=== PATIENT | female | born 1970 | race Caucasian/White ===

== ENCOUNTER 2018-08-30 05:25 | Inpatient (IN) | payer OTHER, SELFPAY ==
--- NOTE | 2018-08-17 22:09 | PCM.HP.BLA ---
History and Physical History and Physical Patient Name: Mamie Birch : 1970 From: SILVANO RAO PA-C DATE OF SURGERY: 08/30/2018 SCHEDULED PROCEDURE: Left Total Hip Arthroplasty HISTORY OF PRESENT ILLNESS: On August 17, 2018. This is a 47-year-old female who has been having ongoing pain over the past several years with regards to her left hip. Recently patient states the left hip pain has progressively become worse. It is to the point where she has difficult time with activities of daily living including getting dressed. She has a hard time and difficulty tying her shoes. Patient has increased pain going up and down stairs, sitting, and walking. Pain is been aching, sharp, sore. Pain can reach a size a 7-8/10. Patient has tried home health care social worker in the past with traction exercises and home exercises. These did not provide any significant relief. Patient states she has tripped/stumbled secondary to her left hip pain. This has prevented her from intamacy with her partner. Patient has tried nonsteroidal anti-inflammatories and Tylenol with only minimal relief. She has had to use a cane on vacation now due to her hip pain. Patient had the stop a walking program in which she was walking 3 miles with a friend several days a week. The pain as significantly increased and prevented this. She has tried rest, heat, elevation with no relief in symptoms. Patient has had previous low back pain in 2010 with previous injections in 2010. She currently is not complaining of any significant back pain. Denies any numbness and tingling down her leg. We have obtain surgical clearance from patient's primary care physician Dr. Tena. Patient has medical history pertinent for thyroid disease and depression. Patient also has hoarseness and occasional shortness of breath secondary to paralyzed vocal chord. Denies any recent chest pain, fevers chills, recent infections. Patient at this time wishes to proceed with a left total hip arthroplasty after discussing treatment options with Dr. Jose Manuel De La Cruz. REVIEW OF SYSTEMS: ROS: Const: Denies anorexia, change in appetite, fever, difficulty sleeping, weight change. CV: Denies chest pain, heart murmur, irregular heartbeat and peripheral vascular disease. Resp: Denies asthma, cough, pneumonia, sleep apnea, shortness of breath, tuberculosis and wheezing SHORTNESS OF BREATH DUE TO PARALYZED VOCAL CHORD GI: Denies constipation, diarrhea, heartburn, nausea, rectal itching, bloody stools and vomiting. : Denies incontinence. Musculo: Reports leg swelling, pain and weakness, but denies trouble walking. Skin: Reports history of shingles and tattoo, but denies Raynaud's. Neuro: Denies ambulatory dysfunction, dizziness, numbness/tingling and tremor. Psych: Denies anxiety, depression, insomnia, mental illness and stress. Rogelio/Lymph: Denies anemia, bleeding/bruising tendency and past transfusion. Reviewed, no changes. PAST MEDICAL HISTORY: Advance Care Plan: No Advance Directives Effective Date: 07/27/2018 PMH: Medical Problems: Thyroid Disease, Depression Accidents: None Surgical Hx: Tonsillectomy Foot Surgery - PLANTARFACITIS - BILAT Thyroidectomy - LT Anesthesia Complications: None Assistive Devices: Glasses - READING Reviewed and updated. 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 Personal Habits: Smoking: Patient is a former smoker.Cigarette Use: Former.Smokeless Tobacco: Never Used Smokeless Tobacco.E-Cigarette Use: Never used.Alcohol: Occasionally.Drug Use: Denies Use.Enjoy Exercising: Never Exercises. Reviewed and updated. VITALS: Ht: 70 Wt: 277lb Wt k.647 BMI: 39.7 BP: 116/74 Pulse: 79 Resp: 24 T: 98.1 T: 36.7C ALLERGIES: Penicillin Spider Bites Bee Sting MEDICATIONS: Vitamin D3 1000 Unit 1 po qdAY, Levothyroxine 10MG 1 PO daily, Wellbutrin XL 300 mg 1 PO daily, Prozac 40 mg 1 cap PO daily, CBD Oil uad PRE-OP EXAM: General appearance:NORMAL Other: Eyes: Conjunctivae and lids: NORMAL Pupils: ERR Ears, Nose, Mouth, and Throat: NORMAL Other: Inspection of lips, teeth and gums: NORMAL Other: Neck: Examination of neck: no masses noted. Respiratory: Assessment of respiratory effort: NORMAL Other: Auscultation of lungs: clear to auscultation no wheezes, rhonchi or rales. Cardiovascular: Auscultation of heart: regular rate and rhythm, no murmurs, gallops or rubs. Gastrointestinal: Exam of abdomen: soft, nontender, nondistended bowel sounds present. PHYSICAL EXAMINATION: Patient does walk with an antalgic gait. Patient is complaining of left groin pain. She has minimal pain over the lateral left hip. Patient is able to forward flex with fingertips to mid lower legs. Range of motion left hip: Limited with increased pain on internal and external rotation. Hip flexion 100 with increased pain. Internal rotation 5 and external rotation 15. Positive crepitus. Sensation intact to light touch. Neurovascularly intact. 2 mm leg length discrepancy with left being shorter than right. IMAGING STUDIES: X-ray were obtained at today's visit of the left hip including 3 views AP pelvis, AP left hip, crossfire lateral left hip reveals severe osteoarthritis of the left hip with complete joint space loss, subchondral sclerosis, osteophyte formation and subchondral cyst formation. No acute findings for fracture or dislocation. IMPRESSION: 1. Severe left hip osteoarthritis 2. History of low back pain 3. Thyroid disease 4. Depression PLAN: Dr. Jose Manuel De La Cruz did discuss and review with the patient all treatment options including surgical versus nonsurgical options. Patient does wish to proceed with the above-stated procedure. Potential risks, benefits, and complications of the procedure were discussed in detail including but not limited to , infection, nerve and blood vessel damage, persistent pain, numbness, tingling, paresthesias, blood clot, pulmonary embolism, and requirement for possible further surgery. The patient expressed full understanding and has no further questions for the doctor. Patient does agree to proceed with the above-stated procedure and has signed the surgery consent form. This dictation was created using voice recognition software. Phonetic and/or grammatical errors may exist.. ___ I have re-examined the patient. There are no clinical changes since date of exam. ___ See progress notes for changes. ___ Dictated on admission Date: Time: Signature:
[2018-08-21 11:34] VITALS: BP 126/75; PULSE 65; RESP 16; TEMP 36.4; O2SAT 97; BMI 38.7
--- NOTE | 2018-08-24 14:27 | CASEMGMT ---
Call placed to patient to discuss discharge needs after upcoming surgery. Patient plans to return home with assistance from , mom, and 3 children. Patient has initial outpatient physical therapy appointment set up and will have transportation assistance. Patient has a walker, shower seat, toilet riser, and grab bars in the bathroom. There is a bedroom and bathroom on the 1st level of the home; there are approx. 5 steps to enter home. Informed patient that RN-CM will likely follow up after surgery to discuss any further discharge needs. Lanie Quintana LPN Clinical Support
[2018-08-30] VITALS (12 sets, daily range): BP systolic 101–120; BP diastolic 54–76; PULSE 65–85; RESP 14–18; TEMP 36.2–36.7; O2SAT 95–100; BMI 38.7
[2018-08-30] MEDS: Acetaminophen 500 MG Tablet 1000 MG PO ×3 (06:06→21:17)
[2018-08-30 06:07] LABS: Internal QC Validated? YES +Cl - CLEAR BKGD
[2018-08-30] MEDS: Celecoxib 200 MG Capsule 400 MG PO (06:07)
[2018-08-30 06:08] LABS: Pregnancy, Urine Negative Negative
[2018-08-30] MEDS: Gabapentin 600 MG Tablet PO (06:08)
[2018-08-30] MEDS: Scopolamine 1mg/72hr Patch 1 PATCH TRANSDERM. (06:09)
[2018-08-30] MEDS: Magnesium Sulfate 4gm/100mL 4 GM/100 ML IV.SOLN. IV (06:10)
--- NOTE | 2018-08-30 07:40 | RAD_ITS ---
STUDY: X-RAY - PELVIS AND LEFT HIP REASON FOR EXAM: Female, 47 years old. Left hip replacement surgery TECHNIQUE: 3 intraoperative views of the pelvis and hip. COMPARISON: None. FINDINGS: 3 limited intraoperative films were performed as the patient has undergone total replacement of the left hip joint. Components demonstrate anatomic alignment. No plain film evidence of complication. RAD/Hip 1 view with Pelvis IMPRESSION: Intraoperative views of a replaced left hip show anatomic alignment. Electronically Signed: Juan Pablo Marie MD at 9:33 EDT , Service support ,
[2018-08-30 07:55] LABS: Bedside Glucose 89 mg/dL (70-110)
--- NOTE | 2018-08-30 08:55 | PCM.OPRPT ---
Report of Operation Date of Procedure: 08/30/18 Pre-Operative Diagnosis: Left hip primary osteoarthritis Post-Operative Diagnosis: Left hip primary osteoarthritis Surgery/Procedure Performed:: Left direct anterior total hip replacement Description of Surgical Findings:: Stable hip with equal leg lengths radiographically military administrative technician: Mojgan Veloz Type of Anesthesia:: Spinal Anesthesiologist: Humble Harvey Special Medications: 900 mg clindamycin, 1 g TXA at incision, 1 g TXA closure, 10 mg Decadron, joint cocktail (5 mg Duramorph, 30 mL of 0.5% Ropivicaine, 1000 units of epinephrine, 30 mg of Toradol) Specimen's removed: Bony cuts Estimated Blood Loss (mL): 150 Fluids Replaced: 1000 mL crystalloid Description of Procedure: Components used: 1. Accolade 2 Gino femoral stem size 5 127? 2. Gino trident 2 acetabular shell size 52 mm 3. Gino X3 polyethylene E 4. Gino Biolox delta 36mm, +7.5mm femoral head Brief history operative indications: 47 yo f who failed conservative measures for their hip osteoarthritis. X-rays were consistent with osteoarthritis including joint space narrowing, osteophyte formation and subchondral cysts. Total hip replacement was discussed with the patient with risks and benefits including but not limited to blood loss, DVTs, PEs, neurovascular damage, dislocation, general risks of anesthesia including loss of life. Patient demonstrated an understanding medical clearance is obtained the patient was consented for surgery. Procedure: On the date of procedure the patient's L hip was marked in the preoperative area. Patient was then taken back to the operating room where anesthesia assumed control of the C-spine and airway and administered anesthetic. Patient was transferred to the operating table and placed in the supine position. The hips were placed at the break of the bed and a sacral bump was placed. The L lower extremity was then prepped out in a sterile fashion using chlorhexidine while the surgeon scrubbed. The PA was vital in the positioning of the patient. Upon reentering the room the L lower extremity was draped in the standard orthopedic fashion and the incision was marked. A timeout was called and everyone agreed upon the side, the site, the procedure be performed, antibody given, and patient's identity. At this time incision was made through skin, subcutaneous tissue, and fat down to fascia. The fascia was then incised and the TFL was retracted laterally. A retractor was placed on the lateral border of the femoral neck. Attention was directed to the inferior portion of the approach and all crossing vessels were identified and appropriately coagulated. A retractor was then placed on the medial portion of the femoral neck. The anterior capsule was then cleared of all soft tissue and then H shaped capsulotomy was made. The retractors were then placed inside the capsule. The femoral neck was identified and a cleanup cut was made. At this time a power corkscrew was used to remove the femoral head. Attention was then turned toward the acetabulum where the soft tissues were appropriately retracted and the acetabulum was sequentially reamed to 52 mm. A 52 mm cup was then selected and impacted into place. Acetabular liner was impacted into place and locking mechanism was verified. The position of the acetabular cup was then verified under live fluoroscopy. Attention was then turned to the femur. Soft tissue releases on the medial and lateral femoral neck were appropriately done, the leg was externally rotated and lateralized. A Carlos retractor was placed medially and proximally to the greater trochanter this allowed appropriate visualization and exposure of the femoral canal. Rongeour was then used to remove excess lateral bone. A canal finder and entry broach were used to open the proximal canal. Once we verified we were down the femoral canal we subsequently broached up to a size 5 femur. The appropriate neck was placed in the previously selected head was trialed with a +7.5 mm neck. Traction was pulled and the hip was reduced with internal rotation. Once it was appropriately reduced and stability was checked. There was minimal shuck, equal leg lengths and appropriate stability with hyperextension and external rotation as well as with 90? flexion and internal rotation. Fluoroscopy was then also used to verify the position of the components and leg lengths using the contralateral side for comparison. The trial components were then dislocated the proximal femur was again exposed and the components were removed from the wound. The final components were verified and opened. The wound was copiously irrigated out with normal saline. The acetabulum was checked for any residual debris. The final components were placed and impacted. Traction and internal rotation were again used to reduce the hip. After adequate reduction the hip remained stable with appropriate leg lengths. The final components were once again checked with live fluoroscopy and were found to be satisfactory. The wound was then copiously irrigated with normal saline once more, and hemostasis was obtained. Closure was then done using #1 Vicryl runner to close the fascia. A 2-0 vicryl interuppted sutures were used to close the subcutaneous skin. A 3-0 Monocryl and Steri-Strips were used for final skin closure. A Silverlon dressing was placed. Patient was awakened by anesthesia and transferred to the [facility]. Patient was then transferred to the PACU for recovery. Postoperative plan: Patient will get 24 hours postop antibiotics. Patient will get in-house physical therapy and will be weight-bear as tolerated. Patient will follow up in office in 2 weeks for a wound check and x-rays. Grafts/Implants Used: Gino - Complications No intraoperative complications - Admit VTE Documentation VTE Present on Admission: No VTE Mechan Device Prophylaxis: SCD's, Thigh High JOON Hose VTE Pharm Prophylaxis ordered?: Yes
--- NOTE | 2018-08-30 09:40 | RAD_ITS ---
STUDY: X-RAY - PELVIS AND LEFT HIP REASON FOR EXAM: Female, 47 years old. Postop from hip replacement surgery TECHNIQUE: 2 views of the pelvis and hip. COMPARISON: None. FINDINGS: Patient is postop from left hip replacement surgery. Components demonstrate anatomic alignment. No plain film evidence of postoperative complication. Normal postoperative soft tissue swelling and subcutaneous emphysema. RAD/Hip Min 2 Views (Portable) IMPRESSION: Replaced left hip joint demonstrates anatomic alignment. No plain film evidence of postoperative complication Electronically Signed: Juan Pablo Marie MD at 10:40 EDT , Service support ,
[2018-08-30] MEDS: Lactated Ringers 1,000 ML 999 ML IV (09:45)
[2018-08-30] MEDS: Lactated Ringers 1,000 ML 125 ML IV ×2 (10:36→17:13)
[2018-08-30] MEDS: FLUoxetine 20 MG Capsule 40 MG PO (15:39)
[2018-08-30] MEDS: buPROPion (XL) 300 MG TABLET.XL PO (15:39)
[2018-08-30] MEDS: Famotidine 20 MG Tablet PO (15:40)
--- NOTE | 2018-08-30 15:45 | CASEMGMT ---
RN MARRY NOTE: To room to talk with pt. @ bedside. Introduced self and role of RN MARRY. Demographics, insurance, physician, and pharmacy all verified. PCP is Dr Tena. Pt also sees Dr De La Cruz, Dr Montague for thyroid, and Dr Macias (bumper machine operator) Preferred harmacy is [facility] in [place]. Pt has [employer] insurance and has prescription coverage. Discussed AD with pt. Pt states does not have LW or HCPOA, but is interested in talking with SW to complete paperwork. ISIDRO Lincoln, notified. Pt states was independent with ADL's and home mgmt tasks prior to surgery. She states she has a good support system @ home: , 3 children, and her mother all can help as needed. Discharge plan: Pt wishes to return home w/OP therapy @ [facility]. She states she has 1st appt scheduled already and has transportation. Pt voices no concerns with discharge. Pt and made aware if they should have any questions or concerns re: discharge planning, to ask for CM. Alexander MOFFETT RN, CM
[2018-08-30] MEDS: Ensure Surgery 237 ML LIQUID PO (17:13)
[2018-08-30] MEDS: Aspirin 81 MG TAB.CHEW PO (17:14)
[2018-08-30] MEDS: Ketorolac 15 MG/ML Vial IV (17:56)
[2018-08-30] MEDS: 0.9% NaCl Peripheral Flush Adult/Peds IV (17:57)
[2018-08-30] MEDS: oxyCODONE 5 MG Tablet 2.5 MG PO (21:15)
[2018-08-30] MEDS: Senna/Docusate Sodium 1 Tablet 2 TABLET PO (21:17)
[2018-08-31 02:24] VITALS: BP 115/88; PULSE 88; RESP 18; TEMP 37.7; O2SAT 94
[2018-08-31] MEDS: oxyCODONE 5 MG Tablet 2.5 MG PO ×2 (02:39→08:02)
[2018-08-31 05:27] LABS: Hematocrit 34.8 % (37-47); Hemoglobin 11.7 g/dL (12.0-15.0); Mean Corp Hgb Conc 33.6 g/dL (32-36); Mean Corpuscular Hgb 29.6 pg (27.0-32.0); Mean Corpuscular Volume 88.1 fL (81-99); Mean Platelet Vol. 10.8 fl (6.2-12.0); Platelet Count 233 K/mm3 (150-450); RBC Distribution Width CV 13.2 % (11.6-14.6); RBC Distribution Width SD 42.8 fl (35.1-43.9); Red Blood Count 3.95 M/mm3 (4.2-5.4); White Blood Count 9.6 K/mm3 (4.4-11.0)
[2018-08-31] MEDS: Acetaminophen 500 MG Tablet 1000 MG PO ×2 (05:30→13:22)
[2018-08-31] MEDS: Levothyroxine 100 MCG Tablet PO (05:30)
[2018-08-31 05:55] LABS: Anion Gap 7 (5-15); BUN 11 mg/dL (7-18); BUN/Creat Ratio 12.9 RATIO (10-20); Calcium,Total 8.4 mg/dL (8.5-10.1); Chloride 106 mmol/L (98-107); Creatinine, Serum 0.85 mg/dL (0.55-1.02); EST Glomerular Filtration Rate 76 mL/min (>60); Est Glom Filt Rate - Afr Amer 91 mL/min (>60); Estimated Creatinine Clearance 90.47 ml/min; Glucose 129 mg/dL (74-106); Potassium 4.4 mmol/L (3.5-5.1); Sodium Level 142 mmol/L (136-145)
[2018-08-31] MEDS: Ketorolac 15 MG/ML Vial IV (08:02)
[2018-08-31] MEDS: Senna/Docusate Sodium 1 Tablet 2 TABLET PO (08:02)
[2018-08-31] MEDS: Famotidine 20 MG Tablet PO (08:03)
[2018-08-31] MEDS: FLUoxetine 20 MG Capsule 40 MG PO (08:03)
[2018-08-31] MEDS: Aspirin 81 MG TAB.CHEW PO (08:03)
[2018-08-31] MEDS: buPROPion (XL) 300 MG TABLET.XL PO (08:03)
[2018-08-31] MEDS: Meloxicam 7.5 MG Tablet PO (08:03)
[2018-08-31 08:34] VITALS: BP 109/62; PULSE 88; RESP 18; TEMP 37.2; O2SAT 98
--- NOTE | 2018-08-31 09:59 | PCM.PN.ORT ---
Subjective: The patient was sitting in bedside chair upon examination. Patient denies any chest pain, shortness of breath, dizziness, lightheadedness, nausea or vomiting, or calf pain. Patient does not feel her pain is been controlled on current plan. She is only taking 2.5 mg of oxycodone every 4 hours. She is tolerating physical therapy. She is having pain at rest and with therapy. Objective: Vital signs stable and afebrile. Patient is able to plantarflex and dorsiflex actively. Sensation is intact to light touch to saphenous, sural, superficial and deep peroneal, and tibial distribution. Dressing is clean dry and intact. Negative Homans bilaterally, negative signs and symptoms of DVT. - Physical Exam General: Alert, Oriented x3, Cooperative, No apparent distress Vital Signs Temp Pulse Resp BP Pulse Ox 99.0 F 88 18 109/62 98 08/31/18 08:34 08/31/18 08:34 08/31/18 08:34 08/31/18 08:34 08/31/18 08:34 Oxygen Flow Rate (L/min) 6 Oxygen Delivery Method Room Air Weight: 125.8 kg Body Mass Index (BMI) 38.7 Finger Stick Blood Glucose 89 Intake and Output for Last 24 Hours 08/29/18 08/30/18 08/31/18 23:59 23:59 23:59 Intake Total 1900 / 1900 3466 / 3466 Output Total 1850 / 1850 Balance 1900 / 1900 1616 / 1616 Laboratory Tests Past 24 Hrs 08/31/18 08/31/18 05:04 05:04 WBC 9.6 RBC 3.95 L Hgb 11.7 L Hct 34.8 L MCV 88.1 MCH 29.6 MCHC 33.6 RDW Std Deviation 42.8 RDW Coeff of Janna 13.2 Plt Count 233 MPV 10.8 Sodium 142 Potassium 4.4 Chloride 106 Carbon Dioxide 29.0 Anion Gap 7 BUN 11 Creatinine 0.85 Estim Creat Clear Calc 90.47 Est GFR (MDRD) Af Amer 91 Est GFR (MDRD) Non-Af 76 BUN/Creatinine Ratio 12.9 Glucose 129 H Calcium 8.4 L Medical Necessity - Tobacco Use Smoking Status: Former smoker Tobacco Use: Non-smoker Assessment/Plan 1. S/P left total hip arthroplasty direct anterior approach POD #1 2. Continue Pain Medications: Tylenol and OxyIR, oxycodone has been changed to 5-10 milligrams every 4 hours as needed pain 3. DVT Prophylaxis: Aspirin 81 mg twice daily for DVT prophylaxis 4. PT/OT: Weightbearing as tolerated 5. H & H: 11.7/34.8, asymptomatic 6. Encouraged Incentive Spirometry 7. Disposition: Plan will be for possible discharge home today. Pain medication has been adjusted. I would like to see how patient does with therapy this afternoon with regards to her pain. If she is tolerating the pain she will be discharged home today. Prescriptions will be attached to chart. Patient will follow-up per postop instructions.
--- NOTE | 2018-08-31 10:06 | DCINST_ITS ---
Discharge Activity: May Not Drive - while taking narcotic pain medications. May shower in (days): 1 - Turn dressing away from water Ice area for (Minutes): 20 - Every 1-2 hours while awake Weight Bearing Status: Weight bearing as tolerated Elevate: Operative Extremity Additional Activity Instructions:: Wear elastic stockings for 2 weeks. DO NOT use alcohol with narcotic pain medication. DO NOT make important decisions while taking narcotic medication. If you have problems with taking your medication (rash, itching, nausea, etc.) call the office at once. Call your doctor if your incision/area has: Increased Pain/ Swelling, Increased Redness, Foul Smelling Discharge Call your doctor if you observe: Fever of 101 or Higher Remove Dressing in (days):: 3 Additional Instructions: Follow [facility] postop instructions Allergies/Adverse Reactions: Allergies Penicillins Allergy (Verified 08/21/18 11:10) Hives Medications to take at Discharge Bupropion HCl [Wellbutrin Xl] 300 mg PO DAILY 08/21/18 Cbd Oil 3,020 mg SL BID 08/21/18 Cholecalciferol (VIT D3) [Vitamin D3] 1,000 unit PO DAILY 08/21/18 Fluoxetine HCl [Prozac] 40 mg PO DAILY 08/21/18 Levothyroxine [Synthroid] 100 mcg PO DAILY 08/21/18 Acetaminophen [Tylenol] 1,000 mg PO Q8 #100 tab 08/31/18 Aspirin [Aspirin, Baby] 81 mg PO BIDCM #60 tab.chew 08/31/18 Famotidine [Pepcid] 20 mg PO DAILY #30 tab 08/31/18 Meloxicam [Mobic] 7.5 mg PO BID #60 tab 08/31/18 Oxycodone [Oxyir] 5 - 10 mg PO Q4H PRN PRN 5 Days #45 tablet 08/31/18 Senna/Docusate Sodium [Senokot-S] 2 tab PO BID #20 tab 08/31/18 The following prescriptions were given: Aspirin [Aspirin, Baby] 81 mg PO BIDCM #60 tab.chew Transmission Status: [id number] Meloxicam [Mobic] 7.5 mg PO BID #60 tab Transmission Status: P[id number] Oxycodone [Oxyir] 5 - 10 mg PO Q4H PRN PRN 5 Days #45 tablet PRN Reason: Mod-Severe Pain (4-11/16) Transmission Status: Received by [id number] Famotidine [Pepcid] 20 mg PO DAILY #30 tab Transmission Status: Pending to [id number] Senna/Docusate Sodium [Senokot-S] 2 tab PO BID #20 tab Transmission Status: Pending to [id number] Acetaminophen [Tylenol] 1,000 mg PO Q8 #100 tab Transmission Status: P[id number] Primary Care Physician: Héctor Tena MD [Primary Care Provider] - Test Results: Test results from this visit will be discussed in further detail at your follow- up appointment, if applicable. Please Follow Up With: Estefania Stanton physical Therapy When: 09/04/18 @ 8:00 with travis Please Follow Up With: Fermín Frye PA-C When: 09/13/18 @ 9:30 am
[2018-08-31] MEDS: oxyCODONE 5 MG Tablet PO (13:22)
[2018-08-31 13:23] VITALS: BP 115/68; PULSE 91; RESP 18; TEMP 36.7; O2SAT 98
--- NOTE | 2018-08-31 13:35 | PCA ---
pt in therapy
== END 2018-08-31 14:38 | disposition home or self-care (01) | DRG 470 ==
LOC: ACINP 05:25 → MS3 05:53
PROVIDERS: Anesthesiology; Admitting Provider Specialist; Family Provider Family Medicine; PCP Family Medicine; Referring Provider Specialist; Visit Provider Specialist
PROC: 0SRB0JA Replacement of Left Hip Joint with Synthetic Substitute, Uncemented, Open Approach (ICD-10-PCS; CPT 27284; principal; 2018-08-30 06:50)
DX: M16.12 Unilateral primary osteoarthritis, left hip (principal); F32.9 Major depressive disorder, single episode, unspecified; E07.9 Disorder of thyroid, unspecified
CPT/HCPCS: 36415; 73501; 73502; 76000; 80048; 81025; 82962; 85027; 87081; 97110; 97116; 97162; 97166; 97530; 99251; C1776; J7120; A4216; G0463

== ENCOUNTER → 2020-04-25 14:19 | Outpatient (CLI) | payer OTHER, SELFPAY ==
[2018-08-30 17:19] VITALS: BMI 38.7
[2020-04-30 16:49] LABS: HPV APTIMA, High Risk Negative (Negative)
== END ==
PROVIDERS: PCP Family Medicine; Visit Provider Obstetrics & Gynecology
DX: Z12.4 Encounter for screening for malignant neoplasm of cervix (principal)
CPT/HCPCS: 87624; 88175; G0145

== ENCOUNTER → 2020-09-09 13:29 | Outpatient (CLI) | payer OTHER, SELFPAY ==
[2018-08-30 17:19] VITALS: BMI 38.7
--- NOTE | 2020-09-09 | ASPS_PTH ---
PATIENT: MARY BARNETT [facility] U#:[id number] AGE/SX: 54/F ROOM: RE09/09/[address]: Dr. Edin Montague MD : 1970 BED: DIS: SPEC #: [id number] RECD: 09/09/20 11:54 STATUS: FRANCI CUENCABarber #: [id number] DIANA: 09/09/20 00:[address]: Edin Montague DEPT: CYTOLOGY RECD BY: Sruthi Aparicio ENTERED: 09/09/20 13:40 SP TYPE: ASPIRATION OTHR DR: Dr. Héctor Tena MD Tissues: A - Thyroid gland, NOS B - Thyroid gland, NOS Procedures: Special Stain Group II Cytology Other HEADER OPERATION: Ultrasound-guided fine needle aspiration right thyroid x2 PRE-OP DIAGNOSIS: Thyroid nodules TISSUE SUBMITTED: A ? FNA, right thyroid superior slides x12, B ? FNA right thyroid inferior slides x12 DIAGNOSIS CYTOLOGY A. Right thyroid, superior nodule, ultrasound-guided FNA (smears): Consistent with benign follicular/colloid nodule. Adequate for evaluation. See comment. B. Right thyroid, inferior nodule, ultrasound-guided FNA (smears): Consistent with benign follicular/colloid nodule. Adequate for evaluation. See comment. SJ:ezekiel 09/10/2020 COMMENT A. The smears are cellular. The findings may represent adenomatoid nodule. A & B. Correlation with clinical, radiologic findings and appropriate follow up are necessary. Please make reference to previous specimen ([id number]) right thyroid, ultrasound-guided FNA with diagnosis of ?benign follicular nodule, favor colloid nodule with cystic changes.? CYTOLOGY STUDY Slides are reviewed. CYTOLOGY GROSS A - Received are 12 smears labeled with the patient's name and designated per the requisition as right thyroid superior. Submitted for staining. B - Received are 12 smears labeled with the patient's name and designated per the requisition as right thyroid inferior. Submitted for staining. / ezekiel 09/09/20 TC:5 CPT: 95865 x2
== END ==
PROVIDERS: PCP Family Medicine; Visit Provider Surgery
DX: E04.1 Nontoxic single thyroid nodule (principal)
CPT/HCPCS: 88161; 88313

== ENCOUNTER 2022-04-02 15:03 | Emergency (ER) | payer OTHER, SELFPAY ==
[2022-04-02 15:04] VITALS: BP 137/66; PULSE 75; RESP 18; TEMP 36.2; O2SAT 98
--- NOTE | 2022-04-02 15:58 | RAD_ITS ---
STUDY: X-RAY - LEFT KNEE REASON FOR EXAM: Female, 51 years old. injury-felt a pop TECHNIQUE: 4 view(s) of the knee. COMPARISON: None. FINDINGS: Normal visualized distal femur. Normal visualized proximal tibia and fibula. Normal proximal tibiofibular articulation. Normal medial femorotibial compartment. Normal lateral femorotibial compartment. 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 Lateral subluxation of the patella. Ossification medial joint capsule. The soft tissue structures are unremarkable. RAD/Knee 4 or More Views IMPRESSION: DJD. No acute fracture. Den''s. Electronically Signed: Solitario Holcomb MD at 16:29 EST ,
[2022-04-02 16:30] VITALS: BMI 40.5
[2022-04-02 16:39] VITALS: PULSE 70; RESP 14; O2SAT 100
--- NOTE | 2022-04-02 16:49 | EDS_ITS ---
HPI History of Present Illness Chief Complaint: Lower Extremity Injury Informant: patient Onset/Context/Timing Onset: Today Current Severity: Moderate Maximum Severity: Moderate Narrative Narrative: Patient present secondary to left knee injury. 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 She stepped to the side suddenly to prevent her from falling and felt a pop in her left knee. Since that time she had increasing pain and difficulty weightbearing. She is a history of a prior left hip replacement. She states her right hip has been bothering her recently but had not had any knee pain. There was no fall or direct injury to the knee. [facility] Medical History Depression Hypothyroidism Home Medications Cbd Oil 3,020 mg sublingual BID PAIN 08/21/18 [History Last Taken Unknown] bupropion HCl 300 mg 24 hr tablet, extended release 300 mg PO DAILY DEPRESSION 08/21/18 [History Last Taken Unknown] cholecalciferol (vitamin D3) 25 mcg (1,000 unit) tablet 1,000 unit PO DAILY SUPPLEMENT 08/21/18 [History Last Taken Unknown] fluoxetine 20 mg capsule 40 mg PO DAILY DEPRESSION 08/21/18 [History Last Taken Unknown] levothyroxine 100 mcg tablet 100 mcg PO DAILY THYROID 08/21/18 [History Last Taken Unknown] acetaminophen 500 mg tablet 1,000 mg PO Q8 #100 tabs 08/31/18 [Rx Last Taken Unknown] aspirin 81 mg chewable tablet 81 mg PO BIDCM ##60 08/31/18 [Rx Last Taken Unknown] famotidine 20 mg tablet 20 mg PO DAILY #30 tabs 08/31/18 [Rx Last Taken Unknown] meloxicam 7.5 mg tablet 7.5 mg PO BID #60 tabs 08/31/18 [Rx Last Taken Unknown] sennosides 8.6 mg-docusate sodium 50 mg tablet 2 tab PO BID #20 tabs 08/31/18 [Rx Last Taken Unknown] oxycodone-acetaminophen 5 mg-325 mg tablet (Percocet) 1 tab PO Q6H PRN pain 3 days #14 tabs 04/02/22 [Rx Last Taken Unknown] Allergy/AdvReac Type Severity Reaction Status Date / Time Penicillins Allergy Hives Verified 08/21/18 11:10 Social History Smoking Status: Former smoker ROS ROS ED Constitutional Constitutional ED: Denies chills or fever(s) Eyes Eyes: Denies change in vision or discharge from eye(s) ENT ENT ED: Denies discharge from eye(s), rhinorrhea or sore throat Cardiovascular Cardiovascular: Denies chest pain or palpitations Respiratory/Chest Respiratory/Chest: Denies cough or dyspnea Gastrointestinal Gastrointestinal: Denies abdominal pain, diarrhea, nausea or vomiting Musculoskeletal Musculoskeletal: Reports extremity pain; Denies back pain Integumentary Denies Abrasions or rash Neurologic Neurologic: Denies headache(s), paresthesias or weakness Psychiatric Psychiatric: Denies anxiety or depression Allergic/Immunologic Allergic/Immunologic ED: Denies lip swelling or urticaria EXAM Physical Exam Const Vital Signs: 04/02/22 15:04 04/02/22 16:39 Temperature 97.2 F L Temperature Source Temporal Pulse Rate 75 70 Respiratory Rate 18 14 Blood Pressure 137/66 H Blood Pressure Mean 89 Pulse Ox 98 100 Oxygen Delivery Method Room Air Room Air Positive well nourished and well developed General Appearance ED: well developed HEENT Reports normocephalic and head/scalp atraumatic Eyes PERRL and EOMs intact bilaterally Neck supple Chest Wall inspection of chest normal and palpation of chest normal Resp normal respiratory effort and clear to auscultation bilaterally Cardio regular rate and regular rhythm GI normal to inspection, nondistended, normoactive bowel sounds Palpation: soft Extremity Extremity Narrative: Mild tender palpation over the anterior left knee and along the lateral joint line. Ligaments are stable on testing. No significant edema noted. Strong distal pulses with good range of motion. Neuro oriented x3 and no sensory deficits noted Sensorium / Orientation: alert Psych mental status grossly normal Skin no rashes or lesions noted MDM MDM MDM Narrative Medical decision making narrative: Left knee x-rays were obtained per nursing protocol. Radiography Diagnostic Testing: Clinical Impression(s) from Imaging Studies Knee X-Ray 04/02/22 15:58 IMPRESSION: DJD. No acute fracture. Carmen-Stieda''s. Electronically Signed: Solitario Holcomb MD at 16:29 EST Reading Location ID and State: [facility] / [place] , Service support , Treatment and Re-Evaluation Narrative: Left knee x-rays per my interpretation with chronic arthritic changes. Radiology interpretation is reviewed and agrees. Test results discussed with the patient. She will continue ibuprofen and I will give her a short course of Percocet for pain. She is referred to Dr. Carbajal, on-call for orthopedics. She has a walker with her that she can use to help her ambulate. Discharge Plan Triage Chief Complaint: Lower Extremity Injury ED Provider: Sheba William Dx/Rx/DC Orders Clinical Impression: Left knee sprain Instructions: ED Knee Sprain Prescriptions: New oxycodone-acetaminophen [Percocet] 5-325 mg tablet 1 tab PO Q6H PRN (Reason: pain) 3 Days Qty: 14 0RF No Action levothyroxine 100 MCG tablet 100 mcg PO DAILY bupropion HCl 300 MG tablet extended release 24 hr 300 mg PO DAILY cholecalciferol (vitamin D3) 1,000 UNIT tablet 1,000 unit PO DAILY Cbd Oil 3,020 mg sublingual BID Rx Instructions: WILL STOP 5 DAYS PRIOR TO SURGERY fluoxetine 20 MG capsule 40 mg PO DAILY sennosides-docusate sodium 1 TABLET tablet 2 tab PO BID Qty: 20 0RF Rx Instructions: Take until first bowel movement, then as needed acetaminophen 500 MG tablet 1,000 mg PO Q8 Qty: 100 0RF Rx Instructions: Do not take more than 3000 mg of Tylenol in a day meloxicam 7.5 MG tablet 7.5 mg PO BID Qty: 60 0RF Rx Instructions: Do not take any other anti-inflammatories while on this medication famotidine 20 MG tablet 20 mg PO DAILY Qty: 30 0RF aspirin 81 MG tablet,chewable 81 mg PO BIDCM Qty: 60 0RF Rx Instructions: Take 81 mg aspirin twice daily for DVT prophylaxis for 4 weeks postoperatively Primary Care Provider: Héctor Tena Referrals: Desmond Carbajal DO [Med Staff - Active Staff] - 3-5 Days if not improving Héctor Tena MD [Primary Care Provider] - Disposition Disposition: Home, Self Care
[2022-04-02] MEDS: oxyCODONE 5 MG Tablet PO (17:35)
== END 2022-04-02 17:40 | disposition home or self-care (01) ==
PROVIDERS: Emergency Provider Emergency Medicine; PCP Family Medicine; Visit Provider Emergency Medicine
DX: S83.92XA Sprain of unspecified site of left knee, initial encounter (principal); Z87.891 Personal history of nicotine dependence; E03.9 Hypothyroidism, unspecified; F32.A Depression, unspecified; Z79.899 Other long term (current) drug therapy; Z79.890 Hormone replacement therapy; Z79.82 Long term (current) use of aspirin; X58.XXXA Exposure to other specified factors, initial encounter; Y93.F9 Activity, other caregiving; Y92.9 Unspecified place or not applicable
CPT/HCPCS: 73564; 99283

== ENCOUNTER 2023-03-24 20:26 | Inpatient (IN) | payer OTHER, BC, SELFPAY ==
[2023-03-24 20:27] VITALS: BP 143/60; PULSE 72; RESP 18; TEMP 36.7; O2SAT 99
--- NOTE | 2023-03-24 20:56 | EX.ED.DYSGE1 ---
HPI History of Present Illness Chief Complaint: Abd Pain Detail of Chief Complaint: Epigastric pain, abnormal labs Informant: patient Onset/Context/Timing Onset: Today Context: Sudden Onset Timing: Continuous Quality: Pressure Location: Epigastric Current Severity: 7/10 Maximum Severity: 10/10 Worsened by: Nothing Relieved by: Nothing Associated Symptoms Associated Symptoms: Vomiting Narrative Narrative: Patient is a 52-year-old female who presents to the ED with sudden onset of epigastric pain and vomiting. Patient reports since 03/21/2023 she has had intermittent epigastric pressure/bloating. Today after eating she had a sudden onset of epigastric pressure followed by 4 episodes of vomiting. Patient describes emesis that contained food particles. Patient seen by her primary care physician, Dr. Ahn, yesterday for a yearly physical and refill of meloxicam. Patient reports she had labs drawn yesterday and was notified today of elevated liver enzymes. She then had repeat liver enzymes today along with a liver ultrasound. Patient has obtained results of the liver enzymes but has not received results of the ultrasound. Patient denies any history of liver problems. Patient also denies history of prior heart attack or heart disease. Denies any abdominal surgeries. Denies family history of heart disease. Prior similar symptoms: No Recent Illness/Hospitalization: No PFSH PFS Medical History Depression Hypothyroidism Home Medications Cbd Oil 3,020 mg sublingual BID PAIN 08/21/18 [History Last Taken Unknown] bupropion HCl 300 mg 24 hr tablet, extended release 300 mg PO DAILY DEPRESSION 08/21/18 [History Last Taken Unknown] cholecalciferol (vitamin D3) 25 mcg (1,000 unit) tablet 1,000 unit PO DAILY SUPPLEMENT 08/21/18 [History Last Taken Unknown] fluoxetine 20 mg capsule 40 mg PO DAILY DEPRESSION 08/21/18 [History Last Taken Unknown] levothyroxine 100 mcg tablet 100 mcg PO DAILY THYROID 08/21/18 [History Last Taken Unknown] meloxicam 15 mg tablet 15 mg PO DAILY #30 tabs 05/07/22 [Rx Last Taken Unknown] levothyroxine 75 mcg tablet 75 mcg PO DAILY 03/24/23 [History Last Taken Unknown] Allergy/AdvReac Type Severity Reaction Status Date / Time Penicillins Allergy Hives Verified 03/24/23 20:30 Social History Smoking Status: Former smoker ROS ROS ED Constitutional Constitutional ED: Denies chills, fever(s) or sweats Eyes Eyes: Denies blurry vision Cardiovascular Cardiovascular: Denies chest pain or palpitations Respiratory/Chest Respiratory/Chest: Denies cough or dyspnea Gastrointestinal Gastrointestinal: Reports abdominal pain, nausea and vomiting; Denies constipation or diarrhea Genitourinary Genitourinary ED: Denies dysuria, hematuria or urinary frequency Neurologic Neurologic: Denies headache(s) or weakness EXAM Physical Exam Const Vital Signs: 03/24/23 20:27 Temperature 98.0 F Temperature Source Temporal Pulse Rate 72 Respiratory Rate 18 Blood Pressure 143/60 H Blood Pressure Mean 87 Pulse Ox 99 Oxygen Delivery Method Room Air Positive well nourished and well developed General Appearance ED: well developed and NAD HEENT Reports moist mucous membranes Eyes PERRL Chest Wall inspection of chest normal and palpation of chest normal Resp normal respiratory effort and clear to auscultation bilaterally Cardio regular rate, S1 normal heart sound and S2 normal heart sound GI normal to inspection, nondistended, normoactive bowel sounds Auscultation: normoactive bowel sounds Palpation: soft and tender epigastric Extremity normal to inspection General Extremety ED: Negative for edema General Extremity: Negative for edema Neuro oriented x3 Sensorium / Orientation: alert Motor Exam: strength 5/5 throughout Psych mental status grossly normal Skin no rashes or lesions noted MDM MDM MDM Narrative Medical decision making narrative: IV initiated. Labwork obtained to evaluate for leukocytosis, anemia, and electrolyte derangement. CT abdomen with IV contrast will be ordered to evaluate for acute abdominal process. Patient will be given normal saline 1 L due to emesis x 4 just prior to arrival. Patient declined antiemetic and analgesics at this time. History & Record Review Discussion w/independent historian: Patient and Family Discharge Plan Triage Chief Complaint: Abd Pain ED Provider: Abad Torres Dx/Rx/DC Orders Prescriptions: No Action levothyroxine 100 MCG tablet 100 mcg PO DAILY bupropion HCl 300 MG tablet extended release 24 hr 300 mg PO DAILY cholecalciferol (vitamin D3) 1,000 UNIT tablet 1,000 unit PO DAILY Cbd Oil 3,020 mg sublingual BID Rx Instructions: WILL STOP 5 DAYS PRIOR TO SURGERY fluoxetine 20 MG capsule 40 mg PO DAILY levothyroxine 75 mcg tablet 75 mcg PO DAILY Patient Comments: TAKE 1 TABLET BY MOUTH ONCE DAILY ON AN EMPTY STOMACH FOR THYROID meloxicam 15 mg tablet 15 mg PO DAILY Qty: 30 0RF Rx Instructions: Do not take in conjunction with other NSAID. Tylenol is okay. Primary Care Provider: Héctor Tena Referrals: Héctor Tena MD [Primary Care Provider] -
[2023-03-24] MEDS: 0.9% Normal Saline (1000mL) 1,000 ML 999 ML IV (21:05)
[2023-03-24 21:17] LABS: Absolute Lymphocyte Count 1.32 X10^3/uL (0.83-4.51); Basophil# 0.09 X10^3/uL; Basophil% 1.2 % (0-1); Eosinophil# 0.31 X10^3/uL; Eosinophils% 4.2 % (0-5); Hemoglobin 14.3 g/dL (12.0-15.0); Lymphocyte # 1.32 X10^3/ul (0.83-4.51); Mean Corp Hgb Conc 32.5 g/dL (32-36); Mean Corpuscular Hgb 28.5 pg (27.0-32.0); Mean Corpuscular Volume 87.6 fL (81-99); Mean Platelet Vol. 10.9 fl (6.2-12.0); Monocyte# 0.57 X10^3/uL; Monocyte% 7.8 % (0-10); NRBC Flagged by Analyzer 0 % (0-5); Neutrophil # 5.03 X10^3/uL (2.7-7.7); Neutrophil % 68.4 % (47-70); Platelet Count 325 K/mm3 (150-450); RBC Distribution Width CV 13.9 % (11.6-14.6); RBC Distribution Width SD 44.1 fl (35.1-43.9); Red Blood Count 5.02 M/mm3 (4.2-5.4); White Blood Count 7.4 K/mm3 (4.4-11.0)
[2023-03-24 21:37] LABS: ALB/GLOB Ratio 1.1 RATIO (0.9-2.4); AST(SGOT) 693 U/L (15-37); Alanine Aminotransfer ALT/SGPT 870 U/L (13-56); Albumin, Serum 3.8 g/dL (3.2-5.0); Alkaline Phosphatase 220 U/L (45-117); Anion Gap 5 (5-15); BUN 12 mg/dL (7-18); BUN/Creat Ratio 13.9 RATIO (10-20); Calcium,Total 9.2 mg/dL (8.5-10.1); Chloride 107 mmol/L (98-107); Creatinine, Serum 0.86 mg/dL (0.55-1.02); EST Glomerular Filtration Rate 73 mL/min (>60); Est Glom Filt Rate - Afr Amer 88 mL/min (>60); Globulin 3.5 g/dL (2.2-4.2); Glucose 97 mg/dL (74-106); Lipase 44 U/L (13-75); Potassium 3.7 mmol/L (3.5-5.1); Protein, Total 7.3 g/dL (6.4-8.2); Sodium Level 142 mmol/L (136-145)
--- NOTE | 2023-03-24 21:40 | CT_ITS ---
EXAM: CT ABDOMEN AND PELVIS WITH INTRAVENOUS CONTRAST CLINICAL INDICATION: Elevated liver enzymes TECHNIQUE: Helically acquired images were obtained of the abdomen and pelvis with intravenous contrast. CTDIvol = ( 20.11 ) mGy, DLP = ( 1270.20 ) mGycm This CT exam was performed using one or more of the following dose reduction techniques: automated exposure control, adjustment of the mA and/or kV according to patient size, and/or use of iterative reconstruction technique. CONTRAST: IV 100mL Isovue-370 COMPARISON: No relevant prior studies available. FINDINGS: LOWER THORAX: Small hiatal hernia. Lung bases are clear. No cardiomegaly. No significant pericardial effusion. ABDOMEN: LIVER: Unremarkable. Homogeneous. No focal mass. GALLBLADDER AND BILE DUCTS: Distended gallbladder with cholelithiasis. No acute cholecystitis. No intra- or extrahepatic biliary ductal dilation. PANCREAS: Unremarkable. No focal cystic or solid mass. SPLEEN: Unremarkable. Normal size without focal cystic or solid mass. ADRENALS: Unremarkable. No nodules. KIDNEYS AND URETERS: Unremarkable. Normal renal size and position. No hydronephrosis. STOMACH AND BOWEL: Unremarkable. No stomach or bowel distention. No focal inflammatory change. PELVIS: APPENDIX: No evidence of acute appendicitis. BLADDER: Unremarkable. REPRODUCTIVE: Unremarkable as visualized. No adnexal masses. ABDOMEN and PELVIS: INTRAPERITONEAL SPACE: Unremarkable. No free air or free fluid. BONES/JOINTS: Bilateral total hip arthroplasties with satisfactory alignment and no complications. No suspicious lytic or blastic abnormality. SOFT TISSUES: Small fat-containing umbilical hernia. VASCULATURE: Unremarkable. Abdominal aorta is non-dilated. LYMPH NODES: Unremarkable. No enlarged lymph nodes. CT/Abdomen/Pelvis W IV Cont ONLY IMPRESSION: 1. Cholelithiasis but no acute cholecystitis. 2. No other acute or inflammatory disease or bowel obstruction. 3. Ancillary findings as above. Electronically Signed: Alfredo Mallory MD at 23:08 EST ,
--- NOTE | 2023-03-24 22:07 | EX.ED.DYSGE1 ---
HPI History of Present Illness Chief Complaint: Abd Pain [facility] Medical History Depression Hypothyroidism Home Medications Cbd Oil 3,020 mg sublingual BID PAIN 08/21/18 [History Last Taken Unknown] bupropion HCl 300 mg 24 hr tablet, extended release 300 mg PO DAILY DEPRESSION 08/21/18 [History Last Taken Unknown] cholecalciferol (vitamin D3) 25 mcg (1,000 unit) tablet 1,000 unit PO DAILY SUPPLEMENT 08/21/18 [History Last Taken Unknown] fluoxetine 20 mg capsule 40 mg PO DAILY DEPRESSION 08/21/18 [History Last Taken Unknown] levothyroxine 100 mcg tablet 100 mcg PO DAILY THYROID 08/21/18 [History Last Taken Unknown] meloxicam 15 mg tablet 15 mg PO DAILY #30 tabs 05/07/22 [Rx Last Taken Unknown] levothyroxine 75 mcg tablet 75 mcg PO DAILY 03/24/23 [History Last Taken Unknown] Allergy/AdvReac Type Severity Reaction Status Date / Time Penicillins Allergy Hives Verified 03/24/23 20:30 Social History Smoking Status: Former smoker EXAM Physical Exam Const Vital Signs: 03/24/23 20:27 Temperature 98.0 F Temperature Source Temporal Pulse Rate 72 Respiratory Rate 18 Blood Pressure 143/60 H Blood Pressure Mean 87 Pulse Ox 99 Oxygen Delivery Method Room Air [facility] Lab Data Labs: Laboratory Results - last 24 hr 03/24/23 21:05 WBC 7.4 RBC 5.02 Hgb 14.3 Hct 44.0 MCV 87.6 MCH 28.5 MCHC 32.5 RDW Std Deviation 44.1 H RDW Coeff of Janna 13.9 Plt Count 325 MPV 10.9 Immature Gran % (Auto) 0.400 Neut % (Auto) 68.4 Lymph % (Auto) 18.0 L [place] % (Auto) 7.8 Eos % (Auto) 4.2 Baso % (Auto) 1.2 H Absolute Neuts (auto) 5.0 Absolute Lymphs (auto) 1.32 Nucleated RBC % 0 Sodium 142 Potassium 3.7 Chloride 107 Carbon Dioxide 30.0 Anion Gap 5 BUN 12 Creatinine 0.86 Est GFR (MDRD) Af Amer 88 Est GFR (MDRD) Non-Af 73 BUN/Creatinine Ratio 13.9 Glucose 97 Calcium 9.2 Total Bilirubin 2.90 H AST 693 H ALT 870 H Alkaline Phosphatase 220 H Total Protein 7.3 Albumin 3.8 Globulin 3.5 Albumin/Globulin Ratio 1.1 Lipase 44 Discharge Plan Triage Chief Complaint: Abd Pain ED Provider: Abad Torres Dx/Rx/DC Orders Prescriptions: No Action levothyroxine 100 MCG tablet 100 mcg PO DAILY bupropion HCl 300 MG tablet extended release 24 hr 300 mg PO DAILY cholecalciferol (vitamin D3) 1,000 UNIT tablet 1,000 unit PO DAILY Cbd Oil 3,020 mg sublingual BID Rx Instructions: WILL STOP 5 DAYS PRIOR TO SURGERY fluoxetine 20 MG capsule 40 mg PO DAILY levothyroxine 75 mcg tablet 75 mcg PO DAILY Patient Comments: TAKE 1 TABLET BY MOUTH ONCE DAILY ON AN EMPTY STOMACH FOR THYROID meloxicam 15 mg tablet 15 mg PO DAILY Qty: 30 0RF Rx Instructions: Do not take in conjunction with other NSAID. Tylenol is okay. Primary Care Provider: Héctor Tena Referrals: Héctor Tena MD [Primary Care Provider] -
[2023-03-24 22:27] VITALS: PULSE 62; RESP 14; O2SAT 99
[2023-03-24] MEDS: Ondansetron 4 MG/2 ML Vial IV (22:48)
[2023-03-24] MEDS: morphine 8 MG/ML Syringe 6 MG IV (22:48)
[2023-03-24 22:50] VITALS: BP 139/68; PULSE 60; RESP 12; TEMP 36.8; O2SAT 98
--- NOTE | 2023-03-24 23:16 | PCM.HP.STD ---
[facility] - General General Date of Admission: 03/24/23 Date of Service: 03/24/23 Chief Complaint: Abdominal Pain with Nausea and Vomiting. HPI Narrative MARY BIRCH, is a 52 F with a past medical history of hypothyroidism, depression, obesity; with BMI of 39.3 this admission and history of gallstones with a known history of intermittent gallbladder colic with elevated liver enzymes previously evaluated at the [facility] with an ultrasound done earlier on 03/24/2023 with pending final results who presents to [facility] ER complaining of abdominal pain with nausea and vomiting. Mrs. Birch reports her symptoms began several days prior to admission with increasing frequent upper abdominal pain that was ~7-10/10, epigastric, cramping with nausea and bilious emesis x 4 episodes. She denies a history of recent trauma, EtOH abuse, APAP abuse, history of hepatitis, history of abdominal surgeries, family history of gallbladder/liver disease or other recent illness but she does admit to similar episodes previously attributed to gallbladder attacks . She admits to occasional nausea with bilious emesis after having two rich restaurant meals for Rundown celebration but she denies related fever, chills, dysuria, jaundice or liver disease. She has additional concern because her is approximately 500 days out from his liver transplant at the [facility] and he is doing well. In the ER her CT scan of the abdomen and pelvis revealed multiple gallstones but no dilated bile ducts and the general surgeon on-call reviewed her recent imaging from the [facility] and she thought there could be another reason for elevated LFT's and hyperbilirubinemia and she was then admitted to the general medical floor for ongoing care for a stay that is expected to be greater than 48 hours. [facility] Medical History Depression Hypothyroidism Home Medications Cbd Oil 3,020 mg sublingual BID PAIN 08/21/18 [History Last Taken 03/23/23] bupropion HCl 300 mg 24 hr tablet, extended release 300 mg PO DAILY DEPRESSION 08/21/18 [History Last Taken 03/23/23] cholecalciferol (vitamin D3) 25 mcg (1,000 unit) tablet 1,000 unit PO DAILY SUPPLEMENT 08/21/18 [History Last Taken 03/23/23] fluoxetine 20 mg capsule 40 mg PO DAILY DEPRESSION 08/21/18 [History Last Taken 03/23/23] meloxicam 15 mg tablet 15 mg PO DAILY #30 tabs 05/07/22 [Rx Last Taken 03/23/23] levothyroxine 75 mcg tablet 75 mcg PO DAILY 03/24/23 [History Last Taken 03/23/23] Allergy/AdvReac Type Severity Reaction Status Date / Time Penicillins Allergy Hives Verified 03/24/23 20:30 Social History Smoking Status: Former smoker ROS ROS Narrative Review of systems: Constitutional: Patient denies fever or chills Eyes: Patient denies visual changes or jaundiced sclera ENT: Patient denies runny nose, sore throat or ear pain CV: Patient denies chest pain or palpitations Resp: Patient denies SOB or cough GI: Patient admits to epigastric abdominal pain with nausea and bilious emesis : Patient denies dysuria, hematuria or urinary frequency Neuro: Patient denies headache, paresthesias or focal neurologic weakness Hematology: Patient denies easy bleeding or easy bruisability Skin: Patient denies rash or jaundice Psych: Patient denies depression or anxiety Allergy: Patient denies lip swelling, tongue swelling or urticaria Endo: Patient denies polyuria, polydipsia and polyphagia 14 point ROS otherwise negative except for positives noted above in HPI. Vital Signs Vital Signs Vital Signs: 03/24/23 20:27 03/24/23 22:50 03/24/23 22:27 Temperature 98.0 F 98.3 F Temperature Source Temporal Pulse Rate 72 60 62 Respiratory Rate 18 12 14 Blood Pressure 143/60 H 139/68 H Blood Pressure Mean 87 91 Pulse Ox 99 98 99 Oxygen Delivery Method Room Air Room Air Physical Exam Const alert, oriented x3, no apparent distress, average body habitus, healthy appearing and well nourished General Appearance: cooperative HEENT normocephalic, head/scalp atraumatic, hearing grossly normal bilaterally and moist oral mucous membranes Eyes PERRL, EOMs intact bilaterally and conjunctivae normal Neck no lymphadenopathy and supple Resp normal respiratory effort, no retractions, no use of accessory muscles and clear to auscultation bilaterally Cardio regular rate and regular rhythm GI normal to inspection, nondistended, normoactive bowel sounds, soft to palpation and non-distended GI Narrative: Mild TTP in the epigastrium. Extremity normal to inspection, full ROM and no clubbing, cyanosis or edema Skin Skin Narrative: Patient has no evidence of rash or jaundice at this time. Neuro oriented x3, CN's II-XII intact bilaterally, moves all extremities and no focal motor deficits Sensorium / Orientation: awake, alert, oriented to person, oriented to place and oriented to time Speech: speech normal Motor Exam: strength 5/5 throughout Psych affect normal Results Medical Records Data Attestation: I reviewed the patient's medical records Lab / Micro Data Attestation: I reviewed the patient's lab results. 03/24/23 21:05 03/24/23 21:05 Labs: Laboratory Results - last 24 hr 03/24/23 21:05: WBC 7.4, RBC 5.02, Hgb 14.3, Hct 44.0, MCV 87.6, MCH 28.5, MCHC 32.5, RDW Std Deviation 44.1 H, RDW Coeff of Janna 13.9, Plt Count 325, MPV 10.9, Immature Gran % (Auto) 0.400, Neut % (Auto) 68.4, Lymph % (Auto) 18.0 L, [place] % (Auto) 7.8, Eos % (Auto) 4.2, Baso % (Auto) 1.2 H, Absolute Neuts (auto) 5.0, Absolute Lymphs (auto) 1.32, Nucleated RBC % 0, Sodium 142, Potassium 3.7, Chloride 107, Carbon Dioxide 30.0, Anion Gap 5, BUN 12, Creatinine 0.86, Est GFR (MDRD) Af Amer 88, Est GFR (MDRD) Non-Af 73, BUN/Creatinine Ratio 13.9, Glucose 97, Calcium 9.2, Total Bilirubin 2.90 H, AST 693 H, ALT 870 H, Alkaline Phosphatase 220 H, Total Protein 7.3, Albumin 3.8, Globulin 3.5, Albumin/Globulin Ratio 1.1, Lipase 44 Imaging Radiology Impression Abdomen/Pelvis CT 03/24/23 21:40 IMPRESSION: 1. Cholelithiasis but no acute cholecystitis. 2. No other acute or inflammatory disease or bowel obstruction. 3. Ancillary findings as above. Electronically Signed: Alfredo Mallory MD at 23:08 EST , Assessment & Plan Assessment/Plan (1) Hyperbilirubinemia: (2) Elevated liver enzymes: (3) Gallstones: (4) Gallbladder colic: (5) Obesity: QUALIFIERS: Body mass index: BMI 39.0-39.9 Obesity classification: adult class 2 (BMI 35 - 39.9) Obesity type: unspecified obesity type Serious obesity comorbidity presence: with serious comorbidity Qualified Code(s): E66.01 - Morbid (severe) obesity due to excess calories; Z68.39 - Body mass index [BMI] 39.0-39.9, adult (6) Abdominal pain: QUALIFIERS: Abdominal location: epigastric Qualified Code(s): R10.13 - Epigastric pain PLAN: Plan 1. Hyperbilirubinemia with elevated LFT's in the setting of known gallstones and previously mildly elevated LFT's previously evaluated at the [facility] due to suspected Gallbladder Colic - Admit to general medical floor. Acute hepatitis profile ordered by the ER physician with results pending at this time. Patient denies excessive Tylenol or EtOH use. Keep strict NPO, volume resuscitate and start IV Protonix. Check serum lipase, SALOMÓN, APAP levels, HgbA1c and Lipid Profile plus avoid potentially hepatotoxic agents. At this time there is no identifiable evidence of any other underlying liver/gallbladder disease other than suspected gallbladder colic so we will check HIDA scan w/o GBEF to confirm suspicion. Finally, we will consult Dr. Corrales of gastroenterology and the general surgeon on-call to see this patient on-rounds in the AM so they can collectively decide how to proceed with the help of both appreciated in advance. 2. Hypothyroidism - Continue Synthroid and check TSH. 3. Depression - Resume home regimen. 4. Obesity; with BMI of 39.3 this admission - Weight loss will be recommended. 5. History of lumbar radiculopathy - Noted. 6. DVT prophylaxis - Lovenox 40 mg sq daily. Total time: Approximately 55 minutes. Charges/Coding Visit Charges Inpatient E&M: 78429 Init Hosp L2
--- OUTSIDE RECORDS SUMMARY | 2023-03-24 23:43 | XMS RPT_ITS | CCD ---
Author Name Unknown Address [address] [place] [address] Organization [facility] Care Team Providers Care Slip Laster Name Role Phone Dorian Best MD Primary Care Provider ESTEPHANIA RAMAN, DR ALARCON Primary Care Physician LORIN SANTIAGO Attending Unavailable ESTEPHANIA RAMAN, DR ALARCON Primary Care Unavailab trinh BEST MD, DR ALARCON Primary Care Unavailab LORIN Matthews Admitting Unavailable BARBIE LOGAN-MAREK MILTON Consulting UnavailLORIN Mcfarlane Referring Unavailable BARBIE LOGAN-MAREK MILTON Attending UnavailDorian Bradford MD Primary Care Provider LORIN SANTIAGO MD Admitting Unavailable LORIN SANTIAGO MD Attending Unavailable LORIN SANTIAGO MD Primary Care Unavailable EDIN MONTAGUE Attending Unavailable DORIAN BEST Primary Care Unavailable GALILEA MCCOY Referring Unavailable EDIN MONTAGUE Attending Unavailable DORIAN BEST Primary Care Unavailable DORIAN BEST Referring Unavailable DORIAN BEST Primary Care Unavailable DORIAN BEST Referring Unavailable DORIAN BEST Primary Care Unavailable GALILEA MCCOY Referring Unavailable DORIAN BEST Primary Care Unavailable DORIAN BEST Referring Unavailable GALILEA MCCOY Attending Unavailable DORIAN BEST Primary Care Unavailable GALILEA MCCOY Attending Unavailable DORIAN BEST Primary Care Unavailable GALILEA MCCOY Referring Unavailable DORIAN BEST Primary Care Unavailable DORIAN BEST Primary Care Unavailable GALILEA MCCOY Referring Unavailable DORIAN BEST Primary Care Unavailable GALILEA MCCOY Referring Unavailable DORIAN BEST Primary Care Unavailable GALILEA MCCOY Attending Unavailable DORIAN BEST Primary Care Unavailable DORIAN BEST Primary Care Unavailable DORIAN BEST Referring Unavailable Allergies Allergy Classification Reported Allergen(s) Allergy Type Date of Onset Reaction(s) Facility (2 sources) Penicillins; Translations: [PENICILLINS] Propensity to adverse reactions 09-18-2009 [facility] (18 sources) Bee Sting; Translations: [BEE STING] Propensity to adverse reactions 09-18-2009 [facility] Work Phone: (16 sources) Penicillins Propensity to adverse reactions 09-18-2009 [facility] (2 sources) Bee/Wasp/Ant venom Allergy to substance [facility] (2 sources) Penicillin; Translations: [penicillin] Drug Allergy [facility] Medications Current Medications Medication Drug Class(es) Dates Sig (Normalized) Sig (Original) acetaminophen 1000 mg oral tablet (1 source) Start: 06-16-2022 take 1 tablet by mouth once daily Tylenol Dose : 1,000 mg = 2 tab(s), Oral, TID, not to exceed 3000 mg/day, 0 Refill(s) Start Date: 06/16/22 Status: Ordered aspirin 81 mg oral tablet (1 source) Platelet Aggregation Inhibitor, Nonsteroidal Anti-inflammatory Drug Start: 06-16-2022 take 1 tablet by mouth twice daily at mealtime aspirin Dose : 81 mg = 1 tab(s), Oral, BIDM, Take 81 mg aspirin twice daily with food for 4 weeks postoperatively for DVT prophylaxis., 0 Refill(s) Start Date: 06/16/22 Status: Ordered 24 hr buPROPion hydrochloride 300 mg extended release oral tablet (20 sources) Aminoketone Start: 06-01-2022 take 1 tablet by mouth every hour, then take 1 tablet by mouth once daily buPROPion 300 mg/24 hours (XL) oral tablet, extended release Dose : 300 mg = 1 tab(s), Oral, qDay Start Date: 06/01/22 Status: Ordered Completed/Discontinued Medications Medication Drug Class(es) Dates Sig (Normalized) Sig (Original) Ascorbic Acid (17 sources) Vitamin C ascorbic acid (V ITAMIN C ORAL) Take by mouth. 0 Active Problems Active Problems Problem Classification Problem Date Documented Da te Episodic/Chronic Mood disorders (20 sources) Depressive disorder; Translations: [Depression] Onset: 09-18-2009 09-18-2009 Chronic Mood disorders (1 source) Mood disorders; Translations: [Depression, unspecified depression type] Onset: 09-18-2009 Osteoarthritis (2 sources) Osteoarthritis; Translations: [Unspecified osteoarthritis, unspecified site] Onset: 06-15-2022 Chronic Other and unspecified benign neoplasm (1 source) Lipoma of left upper limb; Translations: [Benign lipomatous neoplasm of skin and subcutaneous tissue of left arm] 09-16-2022 Episodic Other connective tissue disease (3 sources) Presence of right artificial hip joint; Translations: [Presence of right artificial hip joint] Onset: 07-06-2022 Chronic Other connective tissue disease (1 source) Pain of left calf; Translations: [Pain in left lower leg] 09-29-2022 Episodic Other connective tissue disease (1 source) Swollen calf; Translations: [Other specified soft tissue disorders] 09-29-2022 Episodic Other nutritional; endocrine; and metabolic disorders (1 source) Obese class II; Translations: [Obesity, unspecified] Chronic Other nutritional; endocrine; and metabolic disorders (1 source) Obesity; Translations: [Obesity, unspecified] 03-23-2023 Chronic Other nutritional; endocrine; and metabolic disorders (1 source) Abnormal weight gain; Translations: [Abnormal weight gain] Episodic Other screening for suspected conditions (not mental disorders or infectious disease) (7 sources) Patient encounter status; Translations: [Encounter for screening mammogram for malignant neoplasm of breast] Onset: 05-24-2022 Episodic Other skin disorders (1 source) Disorder of subcutaneous tissue; Translations: [Disorder of the skin and subcutaneous tissue, unspecified] 10-04-2022 Episodic Other upper respiratory disease (17 sources) Vocal cord paralysis; Translations: [Paralysis of vocal cords and larynx, unspecified] Onset: 08-17-2018 08-17-2018 Chronic Thyroid disorders (20 sources) Hypothyroidism; Translations: [Hypothyroidism, unspecified] Onset: 09-18-2009 Chronic Past or Other Problems Problem Classification Problem Date Documented Da te Episodic/Chronic Other and unspecified benign neoplasm (1 source) Benign lipomatous neoplasm of skin and subcutaneous tissue of left arm; Translations: [Lipoma of left upper extremity] Onset: 11-15-2022 Episodic Other non-traumatic joint disorders (1 source) Pain in right hip; Translations: [Right hip pain] Onset: 05-24-2022 Episodic Other skin disorders (1 source) Disorder of the skin and subcutaneous tissue, unspecified; Translations: [Lesion of subcutaneous tissue] Onset: 10-04-2022 Episodic Spondylosis; intervertebral disc disorders; other back problems (17 sources) Sciatica; Translations: [Sciatica, unspecified side] Onset: 12-24-2010 12-24-2010 Episodic Results Test Name Value Interpretation Reference Range Facil it Vital Signs Date Time Vital Sign Value Performing Clinician Facility 03-23-2023 11:25-0500 Body weight 128.37 kg Galilea Mccoy EXERCISE INSTRUCT.SENIOR ANDROID DEVELOPER Work Phone: [facility] 03-23-2023 11:25-0500 Diastolic blood pressure 88 mm[Hg] Galilea Lawrencef EXERCISE INSTRUCT.SENIOR ANDROID DEVELOPER Work Phone: [facility] 03-23-2023 11:25-0500 Heart rate 73 /min Galilea Mccoy EXERCISE INSTRUCT.SENIOR ANDROID DEVELOPER Work Phone: [facility] 03-23-2023 11:25-0500 Respiratory rate 16 /min Galilea Mccoy EXERCISE INSTRUCT.SENIOR ANDROID DEVELOPER Work Phone: [facility] 03-23-2023 11:25-0500 SaO2% (BldA) [Mass fraction] 97 % Galilea Mccoy EXERCISE INSTRUCT.SENIOR ANDROID DEVELOPER Work Phone: [facility] 03-23-2023 11:25-0500 Systolic blood pressure 122 mm[Hg] Galilea Mccoy EXERCISE INSTRUCT.SENIOR ANDROID DEVELOPER Work Phone: [facility] 10-04-2022 14:48-0400 Body height 181.6 cm Edin Montague MD Work Phone: [facility] 10-04-2022 14:48-0400 Body temperature 97.9 [degF] Edin Montague MD Work Phone: [facility] 10-04-2022 14:48-0400 Body weight 125.92 kg Edin Montague MD Work Phone: [facility] 10-04-2022 14:48-0400 Diastolic blood pressure 74 mm[Hg] Edin Montague MD Work Phone: [facility] 10-04-2022 14:48-0400 Heart rate 105 /min Edin Montague MD Work Phone: [facility] 10-04-2022 14:48-0400 SaO2% (BldA) [Mass fraction] 98 % Edin Montague MD Work Phone: [facility] 10-04-2022 14:48-0400 Systolic blood pressure 118 mm[Hg] Edin Montague MD Work Phone: [facility] 09-29-2022 07:40-0400 Body weight 126.55 kg Galilea Tannhof EXERCISE INSTRUCT.SENIOR ANDROID DEVELOPER Work Phone: [facility] 09-29-2022 07:40-0400 Diastolic blood pressure 84 mm[Hg] Galilea Tannhof EXERCISE INSTRUCT.SENIOR ANDROID DEVELOPER Work Phone: [facility] 09-29-2022 07:40-0400 Heart rate 78 /min Galilea Tannhof EXERCISE INSTRUCT.SENIOR ANDROID DEVELOPER Work Phone: [facility] 09-29-2022 07:40-0400 Respiratory rate 20 /min Galilea Tannhof EXERCISE INSTRUCT.SENIOR ANDROID DEVELOPER Work Phone: [facility] 09-29-2022 07:40-0400 SaO2% (BldA) [Mass fraction] 97 % Galilea Tannhof EXERCISE INSTRUCT.SENIOR ANDROID DEVELOPER Work Phone: [facility] 09-29-2022 07:40-0400 Systolic blood pressure 122 mm[Hg] Galilea Tannhof EXERCISE INSTRUCT.SENIOR ANDROID DEVELOPER Work Phone: [facility] 09-16-2022 13:17-0400 Body weight 127.01 kg Galilea Tannhof EXERCISE INSTRUCT.SENIOR ANDROID DEVELOPER Work Phone: [facility] 09-16-2022 13:17-0400 Diastolic blood pressure 82 mm[Hg] Galilea Tannhof EXERCISE INSTRUCT.SENIOR ANDROID DEVELOPER Work Phone: [facility] 08-10-2023 13:17-0400 Heart rate 85 /min Galilea Roehocurt EXERCISE INSTRUCT.SENIOR ANDROID DEVELOPER Work Phone: [facility] 09-16-2022 13:17-0400 Respiratory rate 16 /min Galilea Mccoy EXERCISE INSTRUCT.SENIOR ANDROID DEVELOPER Work Phone: [facility] 09-16-2022 13:17-0400 SaO2% (BldA) [Mass fraction] 97 % Galileagagandeep Roehof EXERCISE INSTRUCT.SENIOR ANDROID DEVELOPER Work Phone: [facility] 09-16-2022 13:17-0400 Systolic blood pressure 116 mm[Hg] Gaillea Lawrence EXERCISE INSTRUCT.SENIOR ANDROID DEVELOPER Work Phone: [facility] 06-16-2022 06:20-0400 Body temperature 98.06 [degF] DR LORIN SANTIAGO MD [facility] 06-16-2022 06:20-0400 Diastolic Blood Pressure Non-Invasive [address] LORIN SANTIAGO MD [facility] 06-16-2022 06:20-0400 Heart rate 63 /min DR LORIN SANTIAGO MD [facility] 06-16-2022 06:20-0400 Reason For Taking VItal Signs DR LORIN SANTIAGO MD [facility] 06-16-2022 06:20-0400 Respiratory rate 18 /min DR LORIN SANTIAGO MD [facility] 06-16-2022 06:20-0400 Systolic Blood Pressure Non-Invasive [address] LORIN SANTIAGO MD [facility] 06-16-2022 04:31-0400 Body temperature 98.42 [degF] DR LORIN SANTIAGO MD [facility] 06-16-2022 04:31-0400 Diastolic Blood Pressure Non-Invasive [address] LORIN SANTIAGO MD [facility] 06-16-2022 04:31-0400 Heart rate 59 /min DR LORIN SANTIAGO MD [facility] 06-16-2022 04:31-0400 Reason For Taking VItal Signs DR LORIN SANTIAGO MD [facility] 06-16-2022 04:31-0400 Respiratory rate 18 /min DR LORIN SANTIAGO MD [facility] 06-16-2022 04:31-0400 Systolic Blood Pressure Non-Invasive [address] LORIN SANTIAGO MD [facility] 06-15-2022 23:12-0400 Body temperature 98.24 [degF] DR LORIN SANTIAGO MD [facility] 06-15-2022 23:12-0400 Diastolic Blood Pressure Non-Invasive [address] LORIN SANTIAGO MD [facility] 06-15-2022 23:12-0400 Heart rate 74 /min DR LORIN SANTIAGO MD [facility] 06-15-2022 23:12-0400 Reason For Taking VItal Signs DR LORIN SANITAGO MD [facility] 06-15-2022 23:12-0400 Respiratory rate 18 /min DR LORIN SANTIAGO MD [facility] 06-15-2022 23:12-0400 Systolic Blood Pressure Non-Invasive [address] LORIN SANTIAGO MD [facility] 06-15-2022 19:15-0400 Heart rate 77 /min DR LORIN SANTIAGO MD [facility] 06-15-2022 15:36-0400 Heart rate 71 /min DR LORIN SANTIAGO MD [facility] 06-15-2022 10:15-0400 Body height 180.[address] LORIN SANTIAGO MD [facility] 06-15-2022 10:15-0400 Body temperature 96.62 [degF] DR LORIN SANTIAGO MD [facility] 06-15-2022 10:15-0400 Body weight 127.[address] LORIN SANTIAGO MD [facility] 06-15-2022 10:15-0400 Body weight 39.16 kg/m2 DR LORIN SANTIAGO MD [facility] 06-15-2022 10:15-0400 Heart rate 58 /min DR LORIN SANTIAGO MD [facility] 06-15-2022 09:14-0400 Body temperature 96.26 [degF] DR LORIN SANTIAGO MD [facility] 06-15-2022 09:10-0400 Respiratory Rate - Anes 9 br/min DR LORIN SANTIAGO MD [facility] 06-15-2022 09:05-0400 Respiratory Rate - Anes 11 br/min DR LORIN SANTIAGO MD [facility] 06-15-2022 09:00-0400 Respiratory Rate - Anes 18 br/min DR LORIN SANTIAGO MD [facility] 06-15-2022 06:08-0400 Body height 180.[address] LORIN SANTIAGO MD [facility] 06-15-2022 06:08-0400 Body temperature 97.34 [degF] DR LORIN SANTIAGO MD [facility] 06-15-2022 06:08-0400 Body weight 127.[address] LORIN SANTIAGO MD [facility] 06-01-2022 11:23-04[address] Blood Pressure Cuff Size DR LORIN SANTIAGO MD [facility] 06-01-2022 11:23-[address] LORIN SANTIAGO MD [facility] 06-01-2022 11:23-[address] LORIN Sepulveda [facility] 06-01-2022 11:23-0400 Body height 180.[address] LORIN SANTIAGO MD [facility] 06-01-2022 11:23-0400 Body weight 127.[address] LORIN SANTIAGO MD [facility] 06-01-2022 11:23-0400 Body weight 39.16 kg/m2 DR LORIN SANTIAGO MD [facility] 06-01-2022 11:23-0400 Diastolic Blood Pressure Non-Invasive [address] LORIN SANTIAGO MD [facility] 06-01-2022 11:23-0400 Heart rate 77 /min DR LORIN SANTIAGO MD [facility] 06-01-2022 11:23-0400 Systolic Blood Pressure Non-Invasive [address] LORIN SANTIAGO MD [facility] Encounters Encounter Date Encounter Type Care Provider Facility Start: 03-24-2023 Telephone encounter Galilea Billingsley nhof EXERCISE INSTRUCT.SENIOR ANDROID DEVELOPER Work Phone: [facility] Procedures Date Procedure Procedure Detail Performing Clinician Start: 05-24-2022 Lipid 1996 panel - S ani or Plasma Galilea Nadine EXERCISE INSTRUCT.SENIOR ANDROID DEVELOPER Work Phone: Start: 07-19-2019 Mammography Dorian trotter MD Work Phone: Fasciotomy of foot DR LORIN SANTIAGO MD Plan of Treatment Date Care Activity Detail Author Start: 05-25-2027 Lipid 1996 panel - S ani or Plasma Lipid Screening [facility] Start: 05-25-2027 Lipid panel Lipid Screening [facility] Start: 05-25-2027 LIPID SCREEN LIPID SCREEN [facility] Start: 03-23-2026 Diabetes Screening [facility] Start: 05-24-2025 DIABETES SCREEN DIABETES SCREEN [facility] Start: 05-24-2025 Diabetes Screening [facility] Start: 04-25-2025 HPV TESTING HPV TESTING [facility] Start: 04-25-2025 PAP TESTING PAP TESTING [facility] Start: 04-25-2025 Screening for malign ant neoplasm of cervix [facility] Start: 03-23-2024 Annual PCP Team Separator Inserter liya Disease Visit Annual PCP Team Chronic Disease Visit [facility] Start: 01-07-2024 Mammography Mammogram Screening [facility] Start: 01-07-2024 Screening for malign ant neoplasm of breast Mammogram Screening [facility] Start: 09-30-2023 ANNUAL PCP TEAM TOUR DRIVER LIYA DISEASE VISIT ANNUAL PCP TEAM CHRONIC DISEASE VISIT [facility] Start: 09-17-2023 ANNUAL PCP TEAM TOUR DRIVER LIYA DISEASE VISIT ANNUAL PCP TEAM CHRONIC DISEASE VISIT [facility] Start: 08-19-2023 DIABETES SCREEN DIABETES SCREEN [facility] Start: 05-25-2023 ANNUAL PCP TEAM TOUR DRIVER LIYA DISEASE VISIT ANNUAL PCP TEAM CHRONIC DISEASE VISIT [facility] Start: 05-25-2023 COVID-19 VACCINE (#1) COVID-19 VACCI NE (#1) [facility] Immunizations Immunization Date Immunization Notes Care Provider Fa cility 06-22-2011 tetanus toxoid, redu sneha diphtheria toxoid, and acellular pertussis vaccine, adsorbed Dorian Best MD Work Phone: [facility] Payers Date Payer Category Payer Unknown [id number] 2022 Unknown [id number] 2020 Private Health Insurance [employer]ARRICK [employer] OAP [id number] 2020-Present [phone] [facility] [id number] [place] [address] Open Access [id number] 1969 Unknown [id number] 1969 Unknown [id number] 1969 Unknown [id number] Unknown [id number] Social History Date Type Detail Facility Start: 03-21-2017 End: 05-24-2022 Tobacco smoking status NHIS Ex-smoker [facility] End: 09-18-1993 History of tobacco use Current smoker [facility] Start: 10-27-2020 End: 03-23-2023 Alcohol intake Current drinker of alcohol (finding) [facility] Start: 08-18-2020 History SDOH Alcohol Frequency 2 [facility] Start: 08-18-2020 History SDOH Alcohol Std Drinks 1 [facility] Start: 03-03-2011 History SDOH Alcohol Comment rare [facility] Start: 08-18-2020 History SDOH Social Connections Phone 5 [facility] Start: 08-18-2020 History SDOH Social Connections Get Together 3 [facility] Start: 08-18-2020 Education 21 [facility] Start: 1970 Sex Assigned At Female [facility] End: 09-18-1993 History of tobacco use Cigarette Smoker [facility] Start: 03-21-2017 End: 05-24-2022 Tobacco use and exposure Smokeless tobacco non-user [facility] Start: 05-24-2022 Tobacco Comment less than 1/2 pack per day [facility] Start: 06-01-2022 Tobacco smoking status Never smoked tobacco (finding) [facility] Start: 08-18-2020 End: 09-16-2022 History of Social function [facility] Start: 08-18-2020 End: 09-16-2022 Social connection and isolation panel [facility] Do you belong to any clubs or organizations such as mormon groups, [employer], fraLoudie or athletic groups, or school groups? Yes [facility] Are you now , , , , never or living with a partner? [facility] How often to you hav e a drink containing alcohol? Never [facility] How many standard dr inks containing alcohol do you have on a typical day? Patient does not drink [facility] How hard is it for y ou to pay for the very basics like food, housing, medical care, and heating Not very hard [facility] Do you feel stress - tense, restless, nervous, or anxious, or unable to sleep at night because your mind is troubled all the time - these days [OSQ] Only a little [facility] (I/We) worried wheth er (my/our) food would run out before (I/we) got money to buy more. Never true [facility] In the past 12 month s, was there a time when you were not able to pay the mortgage or rent on time? No [facility] Start: 08-18-2020 Gender identity Identifies as female gender (finding) [facility] Start: 08-18-2020 Sexual orientation Heterosexual (finding) [facility] Functional Status Date Assessment Result Facility 06-16-2022 Functional Status None [facility] 06-16-2022 Functional Status Room check performed [facility] 06-16-2022 Functional Status [facility] 06-16-2022 Functional Status 3 [facility] 06-16-2022 Functional Status [facility] 06-15-2022 Functional Status bilateral knee high [facility] 06-15-2022 Functional Status [facility] 06-15-2022 Functional Status [facility] 06-15-2022 Functional Status Multilevel michael e, Other: At discharge will go to [facility] home as it is one floor. [facility] 06-15-2022 Functional Status None [facility] 06-15-2022 Functional Status ice on, tension pillow in place [facility] 06-15-2022 Functional Status Maintained [facility] 06-01-2022 Functional Status Sensory Deficits None [facility] Mental Status Date Assessment Result Facility 06-16-2022 Mental Status Orientation Asse ssment Oriented x 4 [facility] 06-16-2022 Mental Status Orientation Oriented x 4 [facility] 06-16-2022 Mental Status [facility] 06-15-2022 Mental Status [facility] 06-15-2022 Mental Status [facility] 06-15-2022 Mental Status [facility] Clinical Notes 06-05-2021 to 03-24-2023 Telephone Encounter - Choco Cavanaugh LPN - 03/24/2023 8:40 AM ESTTelephone Encounter - Galilea Mccoy APRN.CNP - 03/24/2023 7:36 AM ESTPatient InstructionsPatient Instructions Note Date & Type Note Facility 03-24-2023 Miscellaneous Notes Patient notified of results, verbalizes understanding of instructions. Pt stated she is not taking tylenol or drinking alcohol. Choco Cavanaugh LPN Can you please call the patient and let her know I reviewed her lab results. Thyroid was normal. No signs of anemia. However she has very high liver enzymes. Can you please ask if she has been using alcohol or Tylenol? I would like to get additional labs as well as a RUQ ultrasound soon as possible. Please let me know if she has any questions. Thank you. Galilea Mccoy APRN.KARINE documented in this encounter [facility] 03-23-2023 Instructions Galilea Mccoy APRN.KARINE - 03/23/2023 12:00 PM EST Get labs completed Decreased Prozac to 20 mg for the next 2 weeks, then every other day for 2 weeks, then stop medication. Continue to take wellbutrin as prescribed. Consult for [facility] has been placed. Work on increasing lean protein, veggies, and get some form of exercise. Get biopsy completed Thyroid with Dr. Montague Follow up 1 month, this may be telephone or virtual. documented in this encounter [facility] 03-23-2023 History of Presen t illness Narrative This is a 52 year old female who presents today with: Patient presents with: Acute Visit: Want to stop medication HISTORY OF PRESENT ILLNESS: Mary Birch is a 52 year old female. Patient presents with: Acute Visit: Want to stop medication Medication follow up Thyroid: Taking Synthroid 100 mcg daily. Denies any palpitations, or cold/heat intolerances. History of nodules in the past, follows with general surgery. Depression: Taking Prozac 40 mg and Wellbutrin XL 300 mg daily. Denies increased sadness, anxiety, or SI/HI. Refers that she would like to try weaning off medication. Refers that she is concerned that longterm use of medications could be contributing to her having difficulty losing weight. Weight Gain: Has been cutting out sugars and cutting out carbs. Was working out at the gym. Lost 45 lbs several years ago. Has tried Adipex in the past. Refers she has struggled with her weight for some time. 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 Santiago CONTROL NASAL HEMORRHAGE ANTERIOR SIMPLE 1980 FOOT BILATERAL OP SURGERY 1998 plantar fasciitis PAST SURGICAL HISTORY OF D & C x 3 between 1994 and 1999 THYROIDECTOMY TOTAL/COMPLETE 1998 left side, non cancerous nodule TONSILLECTOMY & ADENOIDECTOMY <AGE 11 ALLERGIES Penicillins and Bee Sting MEDICATIONS Current Outpatient Medications Medication Sig levothyroxine (SYNTHROID) 75 mcg tablet Take 1 tablet by mouth once daily. Take on empty stomach. For Thyroid meloxicam (MOBIC) 15 mg tablet TAKE 1 TABLET BY MOUTH ONCE DAILY. DO NOT TAKE IN CONJUNCTION WITH OTHER NSAID. TYLENOL IS OK. POTASSIUM-99 ORAL Take 99 mg by mouth once daily. Two tabs daily buPROPion XL (WELLBUTRIN XL) 300 mg 24 hr tablet Take 1 tablet by mouth once daily. FLUoxetine (PROZAC) 40 mg capsule Take 1 capsule by mouth once daily. ZINC ACETATE ORAL Take by mouth. ascorbic acid (VITAMIN C ORAL) Take by mouth. (Patient not taking: Reported on 09/29/2022) QUERCETIN DIHYDRATE, BULK, MISC MEDICATION, NON-DATABASE Take 25 mg by mouth once daily. CBD oil Cholecalciferol, Vitamin D3, 1,000 unit ORAL Cap Take 3,000 Units by mouth. No current facility-administered medications for this visit. FAMILY HISTORY Problem Relation Age of Onset Diabetes Father insulin Genitourinary () Father kidney failure - dialysis Cervical Cancer Mother Heart Maternal Grandmother arrythmia - pacemaker Osteoporosis Maternal Grandmother Psychiatry Maternal Grandmother depression Stroke Maternal Grandmother None Son None Son None Son None Son None Daughter Social History Tobacco Use Smoking status: Former Years: 4 Types: Cigarettes Quit date: 09/18/1993 Years since quittin.5 Smokeless tobacco: Never Tobacco comments: less than 1/2 pack per day Vaping Use Vaping Use: Never used Substance Use Topics Alcohol use: Yes Comment: rare Drug use: No REVIEW OF SYSTEMS GENERAL: + Weight Gain HEENT: Negative for frequent or significant headaches, No changes in hearing or vision. NECK: Negative for lumps, goiter, pain and significant neck swelling RESPIRATORY: Negative for cough, hemoptysis, wheezing, dyspnea or shortness of breath CARDIOVASCULAR: Negative for chest pain, leg swelling, orthopnea, or palpitations GI: No nausea, vomiting, or diarrhea/constipation. No hematochezia/melena. No heartburn or reflux symptoms. : No history of dysuria, frequency or incontinence MUSCULOSKELETAL: Negative for joint pain or swelling. SKIN: Negative for lesions, rash, and itching ENDOCRINE: Negative for cold or heat intolerance, polyuria, polydipsia and goiter NEURO: No history of headaches, syncope, paralysis, seizures or tremors MOOD: Negative for depression, anxiety, or suicidal ideation. EXAM: BP 122/88 Pulse 73 Resp 16 Wt 128.4 kg (283 lb) LMP 02/24/2023 (Approximate) SpO2 97% BMI 38.92 kg/m PHYSICAL EXAM: General Appearance: Well appearing, alert, in no acute distress, well-hydrated, well nourished. Skin: Skin color, texture, turgor normal, no suspicious rashes or lesions. Head: Normocephalic, no masses, lesions, tenderness or abnormalities. Eyes: Anicteric sclera. Extraocular movements are intact. Neck: Positive findings: thyroid: nodular. Lungs: Lungs clear to auscultation. No wheezing, rhonchi, rales.. Heart: RRR without murmur, gallop, or rubs. No ectopy. Extremities: No deformities, edema, skin discoloration, clubbing or cyanosis. Good capillary refill. Peripheral Pulses: Normal, Capillary refill <2secs, strong peripheral pulses, Pulses palpable. Neurologic: Gait normal. Sensation grossly intact.. Mood: Pleasant, engaged, good eye contact. ASSESSMENT/PLAN: 1. Depression, unspecified depression type - ICD9: 311, ICD10: F32.A (primary diagnosis) - Wean off Prozac first, weaning instruction provided. - Continue to take Wellbutrin as prescribed at this time. - Follow-up in 1 month. - FLUOXETINE 20 MG CAPSULE 2. Hypothyroidism, unspecified type - ICD9: 244.9, ICD10: E03.9 - Instructed patient on importance of taking on an empty stomach either first thing in the morning or at bedtime. - TSH BLD - T4 FREE/FREE THYROX - THYROID PEROXIDASE ANTIBODY BLOOD 3. Class 2 obesity without serious comorbidity with body mass index (BMI) of 38.0 to 38.9 in adult, unspecified obesity type - ICD9: 278.00, V85.38, ICD10: E66.9, Z68.38 Weight increasing - Patient requesting consult to bariatric [place]. - Recommend tracking food, increase lean protein, vegetables, and get some form exercise. - Discussed other medication options but will address once weaned off of Prozac and Wellbutrin. - CONSULT BARIATRIC/[facility] - COMP METABOLIC PANEL - CBC + DIFF 4. Multinodular goiter (nontoxic) - ICD9: 241.1, ICD10: E04.2 - Follow-up with general surgery Follow-up in 1 month or sooner as needed. Discussed treatment plan and patient voices understanding. Patient's questions answered appropriately. Medications and potential side effects were discussed and patient voices understanding. Galilea Mccoy APRN.KARINE This note was partially generated using Cloudian voice recognition system. Note was reviewed for accuracy. There may be minor misspellings or grammar miscues with Cloudian voice recognition. documented in this encounter [facility] 01-07-2023 Miscellaneous Notes January 10, 2023 PID: [id number] Mary Birch [address] [place] [address] Dear Ms. Birch, We are pleased to inform you that the results of your recent breast imaging exam on 01/06/2023 are normal. Early detection of cancer is very important. We also understand recommendations regarding breast cancer screening are controversial. Please discuss with your primary care provider which strategy is best for you and whether a mammogram is right for you. Your imaging studies and report will be kept on file at [facility] as part of your permanent medical record and are available for your continuing care. Thank you for allowing us to help in meeting your health care needs. Sincerely, Dr. Harkins Interpreting Radiologist [facility] (Normal over 40) documented in this encounter [facility] 01-06-2023 Note HNO ID: [id number] Author: Skyla Salcido Mammo Tech Service: ? Author Type: Beeswax Bleacher Type: Progress Notes Filed: 01/06/2023 1:46 PM Note Text: Radiology Service Progress Note PATIENT NAME: Mary Birch DATE OF SERVICE: January 06, 2023 TIME: 1:13 PM PATIENT IDENTITY VERIFICATION COMPLETED USING TWO (2) IDENTIFIERS: Name and Date of confirmed by patient verbally. FALL SCREENING: Has the patient had 2 falls in the last year or 1 fall with injury or currently using an Ambulatory Assistive Device (Walker, Cane, Wheelchair, Crutches, etc.)? No PATIENT GENDER DATA: Female. status: : No status: NO. PATIENT RELEVANT IMPLANT DATA REVIEWED: Not Applicable RADIOLOGY DEPARTMENT: Mammography PERIPHERAL IV DATA: Not applicable SIGNED BY: Skyla Salcido Secure Command January 06, 2023 1:13 PM [facility] 2022 Note HNO ID: [id number] Author: Edin Montague MD Service: ? Author Type: Physician Type: Progress Notes Filed: 2022 12:46 PM Note Text: Preoperative diagnosis: 4 cm subcutaneous lesion in the left shoulder Postoperative diagnosis: The same Procedure: Excision of a 4.7 cm subcutaneous lesion in the left shoulder Surgeon: Clari Procedure: Left shoulder area was sterilely prepped and draped in usual fashion. 1% lidocaine plain was injected. A 4 cm incision was made. Dissection was carried down subcutaneous firm fatty lesion was removed in its entirety. It measured 4.7 cm in greatest length. The wound was brought together with deep dermal stitches of 3-0 Vicryl. Steri-Strips were applied. Sterile dressings were applied. The patient tolerated the procedure well. [facility] 11-15-2022 Note HNO ID: [id number] Author: Sonja Gutierrez LPN Service: ? Author Type: LICENSED NURSE Type: Progress Notes Filed: 2022 12:46 PM Note Text: UNIVERSAL PROTOCOL / SAFETY CHECKLIST Procedure to be Performed: remove Left subcutaneous lesion of left shoulder Sign In: A Moment of CARE was completed. Personnel directly involved with the procedure wore the appropriate PPE (Personal Protective Equipment). No special equipment needed. Patient/Surrogate Stated/Verified: PATIENT VERIFIED(optional for EMERGENT procedures): Patient name, Date of , Relevant allergies, and The intended procedure Time Out Communication: Intended patient and procedure match the source documents. Consent documented and matches the intended procedure. No relevant labs, photos, and/or imaging studies were applicable for review. No correct side/site applicable for marking and visibility. Medications required for procedure verified. No fire risk assessment and interventions applicable. No implant(s) inserted. Sign Out: SIGN OUT (optional for EMERGENT procedures): All specimen containers correctly labeled. No instruments, equipment or retained foreign bodies applicable. Sonja Gutierrez LPN [facility] 11-12-2022 Miscellaneous Notes Notified pt she has to have appt to discuss Adipex. Asked pt what day/time works well for her. Wait pt response. Chrissy Mendoza Ma documented in this encounter [facility] 10-25-2022 Miscellaneous Notes Patient notified active script at [facility]. Evelyn Flynn MA Pt will be in tomorrow or Tuesday for labs. She is going to be out of meds on . Patient has been identified by name and date of : Yes Last office visit in this department: 09/29/2022 RX INSTRUCTIONS: Patient aware RX will be sent to pharmacy. No need to notify patient. Patient phones requesting refills as follows: Requested Prescriptions Pending Prescriptions Disp Refills levothyroxine (SYNTHROID) 75 mcg tablet 30 tablet 11 Sig: Take 1 tablet by mouth once daily. Take on empty stomach. For Thyroid Please review and advise. Sheba Blakely documented in this encounter [facility] 10-04-2022 Note HNO ID: [id number] Author: Edin Montague MD Service: ? Author Type: Physician Type: Progress Notes Filed: 11/22/2022 11:24 AM Note Text: HISTORY AND PHYSICAL Mary Birch 1970 REFERRING PHYSICIAN: Dorian Best MD CHIEF COMPLAINT: Consult (Lipoma, goiter. ) HPI: The patient is a 51 year old female with a complaint of Multinodular goiter (nontoxic) (primary encounter diagnosis) Lesion of subcutaneous tissue. I last saw her back in 08/01/2020. I performed a fine-needle aspiration of both the superior and inferior thyroid nodules on the right side. This came back as a colloid nodule. The measurements of the nodules at that time were: NODULE 1: Location: Mid to superior right thyroid lobe Size: 2.0 x 2.3 x 1.8 cm Characteristics: Composition: Solid or almost completely solid, 2 points Echogenicity: Hypoechoic, 2 points Shape: Nxawr-vwth-uost, 0 points Margin: Smooth, 0 points Echogenic foci (add points for all that apply): None, 0 points None, 0 points Internal vascularity: Trace Interval growth: Slightly increased in size TI-RADS Category: TR4 ACR Recommendation: TI-RADS 4 nodule. FNA is recommended. NODULE 2: Location: Inferior right thyroid lobe Size: 3.2 x 2.5 x 1.8 cm Characteristics: Composition: Solid or almost completely solid, 2 points Echogenicity: Hypoechoic, 2 points Shape: Vpcef-akln-ifoy, 0 points Margin: Smooth, 0 points Echogenic foci (add points for all that apply): None, 0 points None, 0 points Internal vascularity: Trace Interval growth: Significant interval growth (20% increase in at least two nodule dimensions and a minimal increase of 2 mm, or a 50% or greater increase in volume). TI-RADS Category: TR4 ACR Recommendation: TI-RADS 4 nodule. FNA is recommended. NODULE 3: Location: Mid right thyroid gland Size: 1.2 x 1.0 x 0.9 cm Characteristics: Composition: Composition cannot be determined because of calcification, 2 points Echogenicity: Echogenicity cannot be determined, 1 point Shape: Wdmgv-rnli-cqos, 0 points Margin: Smooth, 0 points Echogenic foci (add points for all that apply): Peripheral (rim) calcification (complete or incomplete), 2 points None, 0 points Internal vascularity: absent Interval growth: No significant growth given differences in technique TI-RADS Category: TR4 ACR Recommendation: TI-RADS 4 nodule. Follow up imaging in 1, 2, 3 and 5 years is advised. NODULE 4: Location: Superior right thyroid lobe posteriorly Size: 1 x 1 x 9 cm Characteristics: Composition: Solid or almost completely solid, 2 points Echogenicity: Hypoechoic, 2 points Shape: Zakel-fwjx-lgct, 0 points Margin: Smooth, 0 points Echogenic foci (add points for all that apply): None, 0 points None, 0 points Internal vascularity: Trace Interval growth: No prior available for comparison. Not previously measured TI-RADS Category: TR4 ACR Recommendation: TI-RADS 4 nodule. Follow up imaging in 1, 2, 3 and 5 years is advised. The most recent thyroid ultrasound showed: In addition she has had a small subcutaneous lesion on her left shoulder which she is really not sure if it is grown does not hurt and is movable. The patient is being seen by me today at the request of Dr. Dorian Best MD for my opinion and advice regarding Multinodular goiter (nontoxic) (primary encounter diagnosis) Lesion of subcutaneous tissue. 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 Santiago CONTROL NASAL HEMORRHAGE ANTERIOR SIMPLE 1980 FOOT BILATERAL OP SURGERY 1998 plantar fasciitis PAST SURGICAL HISTORY OF D AND C x 3 between 1994 and 1999 THYROIDECTOMY TOTAL/COMPLETE 1998 left side, non cancerous nodule TONSILLECTOMY AND ADENOIDECTOMY Current Outpatient Medications Medication Sig meloxicam (MOBIC) 15 mg tablet TAKE 1 TABLET BY MOUTH ONCE DAILY. DO NOT TAKE IN CONJUNCTION WITH OTHER NSAID. TYLENOL IS OK. POTASSIUM-99 ORAL Take 99 mg by mouth once daily. Two tabs daily buPROPion XL (WELLBUTRIN XL) 300 mg 24 hr tablet Take 1 tablet by mouth once daily. FLUoxetine (PROZAC) 40 mg capsule Take 1 capsule by mouth once daily. ZINC ACETATE ORAL Take by mouth. QUERCETIN DIHYDRATE, BULK, MISC MEDICATION, NON-DATABASE Take 25 mg by mouth once daily. CBD oil Cholecalciferol, Vitamin D3, 1,000 unit ORAL Cap Take 3,000 Units by mouth. levothyroxine (SYNTHROID) 75 mcg tablet Take 1 tablet by mouth once daily. Take on empty stomach. For Thyroid ascorbic acid (VITAMIN C ORAL) Take by mouth. (Patient not taking: Reported on 09/29/2022) No curre (more content not included)... [facility] 10-04-2022 History of Presen t illness Narrative HISTORY AND PHYSICAL Mary Birch 1970 REFERRING PHYSICIAN: Dorian Best MD CHIEF COMPLAINT: Consult (Lipoma, goiter. ) HPI: The patient is a 51 year old female with a complaint of Multinodular goiter (nontoxic) (primary encounter diagnosis) Lesion of subcutaneous tissue. I last saw her back in 08/01/2020. I performed a fine-needle aspiration of both the superior and inferior thyroid nodules on the right side. This came back as a colloid nodule. The measurements of the nodules at that time were: NODULE 1: Location: Mid to superior right thyroid lobe Size: 2.0 x 2.3 x 1.8 cm Characteristics: Composition: Solid or almost completely solid, 2 points Echogenicity: Hypoechoic, 2 points Shape: Ukkmx-djeg-okji, 0 points Margin: Smooth, 0 points Echogenic foci (add points for all that apply): None, 0 points None, 0 points Internal vascularity: Trace Interval growth: Slightly increased in size TI-RADS Category: TR4 ACR Recommendation: TI-RADS 4 nodule. FNA is recommended. NODULE 2: Location: Inferior right thyroid lobe Size: 3.2 x 2.5 x 1.8 cm Characteristics: Composition: Solid or almost completely solid, 2 points Echogenicity: Hypoechoic, 2 points Shape: Cjvys-rqqz-sijj, 0 points Margin: Smooth, 0 points Echogenic foci (add points for all that apply): None, 0 points None, 0 points Internal vascularity: Trace Interval growth: Significant interval growth (20% increase in at least two nodule dimensions and a minimal increase of 2 mm, or a 50% or greater increase in volume). TI-RADS Category: TR4 ACR Recommendation: TI-RADS 4 nodule. FNA is recommended. NODULE 3: Location: Mid right thyroid gland Size: 1.2 x 1.0 x 0.9 cm Characteristics: Composition: Composition cannot be determined because of calcification, 2 points Echogenicity: Echogenicity cannot be determined, 1 point Shape: Ypgnu-anvs-vste, 0 points Margin: Smooth, 0 points Echogenic foci (add points for all that apply): Peripheral (rim) calcification (complete or incomplete), 2 points None, 0 points Internal vascularity: absent Interval growth: No significant growth given differences in technique TI-RADS Category: TR4 ACR Recommendation: TI-RADS 4 nodule. Follow up imaging in 1, 2, 3 and 5 years is advised. NODULE 4: Location: Superior right thyroid lobe posteriorly Size: 1 x 1 x 9 cm Characteristics: Composition: Solid or almost completely solid, 2 points Echogenicity: Hypoechoic, 2 points Shape: Svgpn-excc-heur, 0 points Margin: Smooth, 0 points Echogenic foci (add points for all that apply): None, 0 points None, 0 points Internal vascularity: Trace Interval growth: No prior available for comparison. Not previously measured TI-RADS Category: TR4 ACR Recommendation: TI-RADS 4 nodule. Follow up imaging in 1, 2, 3 and 5 years is advised. The most recent thyroid ultrasound showed: In addition she has had a small subcutaneous lesion on her left shoulder which she is really not sure if it is grown does not hurt and is movable. The patient is being seen by me today at the request of Dr. Dorian Best MD for my opinion and advice regarding Multinodular goiter (nontoxic) (primary encounter diagnosis) Lesion of subcutaneous tissue. 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 Santiago CONTROL NASAL HEMORRHAGE ANTERIOR SIMPLE 1980 FOOT BILATERAL OP SURGERY 1998 plantar fasciitis PAST SURGICAL HISTORY OF D & C x 3 between 1994 and 1999 THYROIDECTOMY TOTAL/COMPLETE 1998 left side, non cancerous nodule TONSILLECTOMY & ADENOIDECTOMY <AGE 11 Current Outpatient Medications Medication Sig meloxicam (MOBIC) 15 mg tablet TAKE 1 TABLET BY MOUTH ONCE DAILY. DO NOT TAKE IN CONJUNCTION WITH OTHER NSAID. TYLENOL IS OK. POTASSIUM-99 ORAL Take 99 mg by mouth once daily. Two tabs daily buPROPion XL (WELLBUTRIN XL) 300 mg 24 hr tablet Take 1 tablet by mouth once daily. FLUoxetine (PROZAC) 40 mg capsule Take 1 capsule by mouth once daily. ZINC ACETATE ORAL Take by mouth. QUERCETIN DIHYDRATE, BULK, MISC MEDICATION, NON-DATABASE Take 25 mg by mouth once daily. CBD oil Cholecalciferol, Vitamin D3, 1,000 unit ORAL Cap Take 3,000 Units by mouth. levothyroxine (SYNTHROID) 75 mcg tablet Take 1 tablet by mouth once daily. Take on empty stomach. For Thyroid ascorbic acid (VITAMIN C ORAL) Take by mouth. (Patient not taking: Reported on 09/29/2022) No current facility-administered medications for this visit. ALLERGIES: Penicillins and Bee Sting PERSONAL HISTORY: Social History Tobacco Use Smoking status: Former Years: 4 Types: Cigarettes Quit date: 09/18/1993 Years since quittin.0 Smokeless tobacco: Never Tobacco comments: less than 1/2 pack per day Vaping Use Vaping Use: Never used Substance Use Topics Alcohol use: Yes Comment: rare Drug use: No FAMILY HISTORY: FAMILY HISTORY Problem Relation Age of Onset Diabetes Father insulin Genitourinary () Father kidney failure - dialysis Cervical Cancer Mother Heart Maternal Grandmother arrythmia - pacemaker Osteoporosis Maternal Grandmother Psychiatry Maternal Grandmother depression Stroke Maternal Grandmother None Son None Son None Son None Son None Daughter REVIEW OF SYMPTOMS: The review of systems data was entered by the nurse and reviewed by me There are no exam notes on file for this visit. PHYSICAL EXAMINATION: General: The patient is 51 year old female, well nourished, well hydrated in no acute distress. The patient is oriented to time, place, and person. VITALS: Blood pressure 118/74, pulse 105, temperature 36.6 C (97.9 F), height 181.6 cm (5' 11.5 ), weight 125.9 kg (277 lb 9.6 oz), last menstrual period 05/17/2022, SpO2 98 %. HEENT: Normal cephalic, ataumatic, pupils are equally round, sclera are anicteric, mucous membranes are moist, oropharynx is clear. Neck has no masses, asymmetry or lymphadenopathy. Thyroid exam shows a firm nodule on the right side. No lymphadenopathy is palpable. Respiratory: Clear to auscultation and percussion. Normal respiratory excursion and pattern. Cardiac: Examination is regular rate and rhythm. Abdominal exam: Soft, nontender, with no palpable masses. No hepatosplenomegaly. No palpable hernias. Rectal exam: exam deferred Extremities: no clubbing, cyanosis or edema. No adenopathy. Other: Left shoulder area shows a 2 to 3 cm soft mobile subcutaneous fatty lesion. It has no abnormal features to it. It feels consistent with a lipoma LABORATORY VALUES: As Noted RADIOLOGIC STUDIES: As Noted Assessment IMPRESSION: Multinodular goiter (nontoxic) (primary encounter diagnosis) Lesion of subcutaneous tissue PLAN: I do not think repeat fine-needle aspirations are needed at this time. Yearly thyroid ultrasound will be needed. I performed a fine-needle aspiration Of both the superior and inferior nodules on the right side which came back benign. I removed the subcutaneous lesion in the office Diagnoses: (E04.2) Multinodular goiter (nontoxic) (primary encounter diagnosis) (L98.9) Lesion of subcutaneous tissue My findings have been communicated to Dr. Dorian Best MD via shared medical record. This note will be forwarded to Dr. Dorian Best MD. Return to Clinic: The patient is instructed to follow-up with me 1 week post operatively. Edin Montague III, MD documented in this encounter [facility] 10-04-2022 Note HNO ID: [id number] Author: Lanie Stout RDMS Service: ? Author Type: Clip Loading Machine Feeder Type: Progress Notes Filed: 10/04/2022 12:03 PM Note Text: Radiology Service Progress Note PATIENT NAME: Mary Birch DATE OF SERVICE: October 04, 2022 TIME: 12:03 PM PATIENT IDENTITY VERIFICATION COMPLETED USING TWO (2) IDENTIFIERS: Name and Date of confirmed by patient verbally. FALL SCREENING: Has the patient had 2 falls in the last year or 1 fall with injury or currently using an Ambulatory Assistive Device (Walker, Cane, Wheelchair, Crutches, etc.)? No PATIENT GENDER DATA: Female. status: : No status: NO. PATIENT RELEVANT IMPLANT DATA REVIEWED: Not Applicable RADIOLOGY DEPARTMENT: Ultrasound PERIPHERAL IV DATA: Not applicable SIGNED BY: Lanie Stout RDMS RVAna October 04, 2022 12:03 PM [facility] 09-29-2022 Note HNO ID: [id number] Author: Galilea Mccoy APRN.SENIOR ANDROID DEVELOPER Service: ? Author Type: Nurse Practitioner Type: Progress Notes Filed: 09/29/2022 8:50 AM Note Text: This is a 51 year old female who presents today with: Patient presents with: Acute Visit: eleanor horse x 3 weeks HISTORY OF PRESENT ILLNESS: Mary Birch is a 51 year old female. Patient presents with: Acute Visit: eleanor horse x 3 weeks Left calf muscle cramps for the past 3 weeks, refers that pain has gotten worse and has noticed increase calf swelling in the past several days. Has been elevating the leg without any improvement. Working as a home health aide. No chest pain, SOB, or dizziness. 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 Santiago CONTROL NASAL HEMORRHAGE ANTERIOR SIMPLE 1980 FOOT BILATERAL OP SURGERY 1998 plantar fasciitis PAST SURGICAL HISTORY OF D AND C x 3 between 1994 and 1999 THYROIDECTOMY TOTAL/COMPLETE 1998 left side, non cancerous nodule TONSILLECTOMY AND ADENOIDECTOMY ALLERGIES Penicillins and Bee Sting MEDICATIONS Current Outpatient Medications Medication Sig levothyroxine (SYNTHROID) 75 mcg tablet Take 1 tablet by mouth once daily. Take on empty stomach. For Thyroid meloxicam (MOBIC) 15 mg tablet TAKE 1 TABLET BY MOUTH ONCE DAILY. DO NOT TAKE IN CONJUNCTION WITH OTHER NSAID. TYLENOL IS OK. POTASSIUM-99 ORAL Take by mouth. buPROPion XL (WELLBUTRIN XL) 300 mg 24 hr tablet Take 1 tablet by mouth once daily. FLUoxetine (PROZAC) 40 mg capsule Take 1 capsule by mouth once daily. ZINC ACETATE ORAL Take by mouth. ascorbic acid (VITAMIN C ORAL) Take by mouth. QUERCETIN DIHYDRATE, BULK, MISC MEDICATION, NON-DATABASE Take 25 mg by mouth once daily. CBD oil Cholecalciferol, Vitamin D3, 1,000 unit ORAL Cap Take 3,000 Units by mouth. No current facility-administered medications for this visit. FAMILY HISTORY Problem Relation Age of Onset Diabetes Father insulin Genitourinary () Father kidney failure - dialysis Cervical Cancer Mother Heart Maternal Grandmother arrythmia - pacemaker Osteoporosis Maternal Grandmother Psychiatry Maternal Grandmother depression Stroke Maternal Grandmother None Son None Son None Son None Son None Daughter Social History Tobacco Use Smoking status: Former Years: 4 Types: Cigarettes Quit date: 09/18/1993 Years since quittin.0 Smokeless tobacco: Never Tobacco comments: less than 1/2 pack per day Vaping Use Vaping Use: Never used Substance Use Topics Alcohol use: Yes Comment: rare Drug use: No REVIEW OF SYSTEMS GENERAL: No weight loss, malaise or fevers/chills HEENT: Negative for frequent or significant headaches, No changes in hearing or vision. NECK: Negative for lumps, goiter, pain and significant neck swelling RESPIRATORY: Negative for cough, hemoptysis, wheezing, dyspnea or shortness of breath CARDIOVASCULAR: + Left leg swelling/pain GI: No nausea, vomiting, or diarrhea/constipation. No hematochezia/melena. No heartburn or reflux symptoms. : No history of dysuria, frequency or incontinence MUSCULOSKELETAL: Negative for joint pain or swelling. SKIN: Negative for lesions, rash, and itching ENDOCRINE: Negative for cold or heat intolerance, polyuria, polydipsia and goiter NEURO: No history of headaches, syncope, paralysis, seizures or tremors MOOD: Negative for depression, anxiety, or suicidal ideation. EXAM: BP 122/84 Pulse 78 Resp 20 Wt 126.6 kg (279 lb) LMP 05/17/2022 SpO2 97% BMI 41.80 kg/m? PHYSICAL EXAM: General Appearance: Well appearing, alert, in no acute distress, well-hydrated, well nourished. Skin: Skin color, texture, turgor normal, no suspicious rashes or lesions. Head: Normocephalic, no masses, lesions, tenderness or abnormalities. Eyes: Anicteric sclera. Pupils are equally round and reactive to light. Extraocular movements are intact. Lungs: Lungs clear to auscultation. No wheezing, rhonchi, rales. Heart: RRR without murmur, gallop, or rubs. No ectopy. Extremities: + Mild nonpitting edema noted to left calf, right calf measuring 48.5 cm, left calf 51.5 cm. Positive Homans' sign. No color change noted. Musculoskeletal: No joint swelling, deformity, or tenderness. Peripheral Pulses: Normal, Capillary refill <2secs, strong peripheral pulses, Pulses palpable. Neurologic: Gait normal. Sensation grossly intact. ASSESSMENT/PLAN: 1. Pain of left calf - ICD9: 729.5, ICD10: M79.662 (primary diagnosis) - Get Stat US - Denied wanting labs at this time. - Recommend el (more content not included)... [facility] 09-29-2022 Instructions Galilea Mccoy APRN.KARINE - 09/29/2022 7:51 AM EDT Get ultrasound of calf completed as soon as possible. Elevate the leg when possible. Red flag symptoms go to ER. Follow up pending test results or sooner as needed. documented in this encounter [facility] 09-29-2022 History of Presen t illness Narrative This is a 51 year old female who presents today with: Patient presents with: Acute Visit: eleanor horse x 3 weeks HISTORY OF PRESENT ILLNESS: Mary Birch is a 51 year old female. Patient presents with: Acute Visit: eleanor horse x 3 weeks Left calf muscle cramps for the past 3 weeks, refers that pain has gotten worse and has noticed increase calf swelling in the past several days. Has been elevating the leg without any improvement. Working as a home health aide. No chest pain, SOB, or dizziness. 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 Santiago CONTROL NASAL HEMORRHAGE ANTERIOR SIMPLE 1980 FOOT BILATERAL OP SURGERY 1998 plantar fasciitis PAST SURGICAL HISTORY OF D & C x 3 between 1994 and 1999 THYROIDECTOMY TOTAL/COMPLETE 1999 left side, non cancerous nodule TONSILLECTOMY & ADENOIDECTOMY <AGE 11 ALLERGIES Penicillins and Bee Sting MEDICATIONS Current Outpatient Medications Medication Sig levothyroxine (SYNTHROID) 75 mcg tablet Take 1 tablet by mouth once daily. Take on empty stomach. For Thyroid meloxicam (MOBIC) 15 mg tablet TAKE 1 TABLET BY MOUTH ONCE DAILY. DO NOT TAKE IN CONJUNCTION WITH OTHER NSAID. TYLENOL IS OK. POTASSIUM-99 ORAL Take by mouth. buPROPion XL (WELLBUTRIN XL) 300 mg 24 hr tablet Take 1 tablet by mouth once daily. FLUoxetine (PROZAC) 40 mg capsule Take 1 capsule by mouth once daily. ZINC ACETATE ORAL Take by mouth. ascorbic acid (VITAMIN C ORAL) Take by mouth. QUERCETIN DIHYDRATE, BULK, MISC MEDICATION, NON-DATABASE Take 25 mg by mouth once daily. CBD oil Cholecalciferol, Vitamin D3, 1,000 unit ORAL Cap Take 3,000 Units by mouth. No current facility-administered medications for this visit. FAMILY HISTORY Problem Relation Age of Onset Diabetes Father insulin Genitourinary () Father kidney failure - dialysis Cervical Cancer Mother Heart Maternal Grandmother arrythmia - pacemaker Osteoporosis Maternal Grandmother Psychiatry Maternal Grandmother depression Stroke Maternal Grandmother None Son None Son None Son None Son None Daughter Social History Tobacco Use Smoking status: Former Years: 4 Types: Cigarettes Quit date: 09/18/1993 Years since quittin.0 Smokeless tobacco: Never Tobacco comments: less than 1/2 pack per day Vaping Use Vaping Use: Never used Substance Use Topics Alcohol use: Yes Comment: rare Drug use: No REVIEW OF SYSTEMS GENERAL: No weight loss, malaise or fevers/chills HEENT: Negative for frequent or significant headaches, No changes in hearing or vision. NECK: Negative for lumps, goiter, pain and significant neck swelling RESPIRATORY: Negative for cough, hemoptysis, wheezing, dyspnea or shortness of breath CARDIOVASCULAR: + Left leg swelling/pain GI: No nausea, vomiting, or diarrhea/constipation. No hematochezia/melena. No heartburn or reflux symptoms. : No history of dysuria, frequency or incontinence MUSCULOSKELETAL: Negative for joint pain or swelling. SKIN: Negative for lesions, rash, and itching ENDOCRINE: Negative for cold or heat intolerance, polyuria, polydipsia and goiter NEURO: No history of headaches, syncope, paralysis, seizures or tremors MOOD: Negative for depression, anxiety, or suicidal ideation. EXAM: BP 122/84 Pulse 78 Resp 20 Wt 126.6 kg (279 lb) LMP 05/17/2022 SpO2 97% BMI 41.80 kg/m PHYSICAL EXAM: General Appearance: Well appearing, alert, in no acute distress, well-hydrated, well nourished. Skin: Skin color, texture, turgor normal, no suspicious rashes or lesions. Head: Normocephalic, no masses, lesions, tenderness or abnormalities. Eyes: Anicteric sclera. Pupils are equally round and reactive to light. Extraocular movements are intact. Lungs: Lungs clear to auscultation. No wheezing, rhonchi, rales. Heart: RRR without murmur, gallop, or rubs. No ectopy. Extremities: + Mild nonpitting edema noted to left calf, right calf measuring 48.5 cm, left calf 51.5 cm. Positive Homans' sign. No color change noted. Musculoskeletal: No joint swelling, deformity, or tenderness. Peripheral Pulses: Normal, Capillary refill <2secs, strong peripheral pulses, Pulses palpable. Neurologic: Gait normal. Sensation grossly intact. ASSESSMENT/PLAN: 1. Pain of left calf - ICD9: 729.5, ICD10: M79.662 (primary diagnosis) - Get Stat US - Denied wanting labs at this time. - Recommend elevating the leg when possible. - Red flag symptoms go to ER - US LEG VEIN DVT UNL VAS LAB - US DVT LOWER LEFT 2. Calf swelling - ICD9: 729.81, ICD10: M79.89 - Same plan as #1. Follow-up pending test results or sooner as needed. Discussed treatment plan and patient voices understanding. Patient's questions answered appropriately. Medications and potential side effects were discussed and patient voices understanding. Galilea Mccoy APRN.KARINE This note was partially generated using Secure Command recognition system. Note was reviewed for accuracy. There may be minor misspellings or grammar miscues with Cloudian voice recognition. documented in this encounter [facility] 09-24-2022 Miscellaneous Notes New order filed Dorian Best MD Requesting US THYROID/PARATHYROID order for appointment on 10/04/22. Previous order has been closed. documented in this encounter [facility] 09-16-2022 Note HNO ID: [id number] Author: Galilea Mccoy APRN.SENIOR ANDROID DEVELOPER Service: ? Author Type: Nurse Practitioner Type: Progress Notes Filed: 09/16/2022 2:15 PM Note Text: This is a 51 year old female who presents today with: Patient presents with: Acute Visit: lump on back of left shoulder HISTORY OF PRESENT ILLNESS: Mary Birch is a 51 year old female. Patient presents with: Acute Visit: lump on back of left shoulder Lump behind left arm. Noticeable about a year ago but seems to be getting bigger. Non-tender to touch but has been having some left arm pain with tingling depending on arm position. 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 Santiago CONTROL NASAL HEMORRHAGE ANTERIOR SIMPLE 1980 FOOT BILATERAL OP SURGERY 1998 plantar fasciitis PAST SURGICAL HISTORY OF D AND C x 3 between 1994 and 1999 THYROIDECTOMY TOTAL/COMPLETE 1998 left side, non cancerous nodule TONSILLECTOMY AND ADENOIDECTOMY ALLERGIES Penicillins and Bee Sting MEDICATIONS Current Outpatient Medications Medication Sig levothyroxine (SYNTHROID) 75 mcg tablet Take 1 tablet by mouth once daily. Take on empty stomach. For Thyroid meloxicam (MOBIC) 15 mg tablet TAKE 1 TABLET BY MOUTH ONCE DAILY. DO NOT TAKE IN CONJUNCTION WITH OTHER NSAID. TYLENOL IS OK. ferrous sulfate (IRON) 325 mg (65 mg iron) tablet Take 325 mg by mouth. POTASSIUM-99 ORAL Take by mouth. buPROPion XL (WELLBUTRIN XL) 300 mg 24 hr tablet Take 1 tablet by mouth once daily. FLUoxetine (PROZAC) 40 mg capsule Take 1 capsule by mouth once daily. ZINC ACETATE ORAL Take by mouth. ascorbic acid (VITAMIN C ORAL) Take by mouth. QUERCETIN DIHYDRATE, BULK, MISC MEDICATION, NON-DATABASE Take 25 mg by mouth once daily. CBD oil Cholecalciferol, Vitamin D3, 1,000 unit ORAL Cap Take 3,000 Units by mouth. No current facility-administered medications for this visit. FAMILY HISTORY Problem Relation Age of Onset Diabetes Father insulin Genitourinary () Father kidney failure - dialysis Cervical Cancer Mother Heart Maternal Grandmother arrythmia - pacemaker Osteoporosis Maternal Grandmother Psychiatry Maternal Grandmother depression Stroke Maternal Grandmother None Son None Son None Son None Son None Daughter Social History Tobacco Use Smoking status: Former Years: 4.00 Types: Cigarettes Quit date: 09/18/1993 Years since quittin.0 Smokeless tobacco: Never Tobacco comments: less than 1/2 pack per day Vaping Use Vaping Use: Never used Substance Use Topics Alcohol use: Yes Comment: rare Drug use: No REVIEW OF SYSTEMS GENERAL: No weight loss, malaise or fevers/chills HEENT: Negative for frequent or significant headaches, No changes in hearing or vision. NECK: Negative for lumps, goiter, pain and significant neck swelling RESPIRATORY: Negative for cough, hemoptysis, wheezing, dyspnea or shortness of breath CARDIOVASCULAR: Negative for chest pain, leg swelling, orthopnea, or palpitations GI: No nausea, vomiting, or diarrhea/constipation. No hematochezia/melena. No heartburn or reflux symptoms. : No history of dysuria, frequency or incontinence MUSCULOSKELETAL:+ Lump left arm SKIN: Negative for lesions, rash, and itching ENDOCRINE: Negative for cold or heat intolerance, polyuria, polydipsia and goiter NEURO: No history of headaches, syncope, paralysis, seizures or tremors MOOD: Negative for depression, anxiety, or suicidal ideation. EXAM: BP 116/82 Pulse 85 Resp 16 Wt 127 kg (280 lb) LMP 05/17/2022 SpO2 97% BMI 41.95 kg/m? PHYSICAL EXAM: General Appearance: Well appearing, alert, in no acute distress, well-hydrated, well nourished. Skin: + Mobile, nodule, noted on the left upper arm. Non-tender, no color change noted, full ROM of arm. Head: Normocephalic, no masses, lesions, tenderness or abnormalities. Eyes: Anicteric sclera. Extraocular movements are intact. Extremities: No deformities, edema, skin discoloration, clubbing or cyanosis. Good capillary refill. Peripheral Pulses: Normal, Capillary refill <2secs, strong peripheral pulses, Pulses palpable. Neurologic: Gait normal. Sensation grossly intact. ASSESSMENT/PLAN: 1. Lipoma of left upper extremity - ICD9: 214.8, ICD10: D17.22 - Schedule appointment with general surgery for further evaluation of possible lipoma. - CONSULT TO GENERAL SURGERY Follow-up as needed. Discussed treatment plan and patient voices understanding. Patient's questions answered appropriately. Medications and potential side effects were discussed and (more content not included)... [facility] 09-16-2022 Instructions Galilea Mccoy APRN.CNP - 09/16/2022 1:32 PM EDT Schedule appointment with General Surgery to evaluate possible Lipoma. Get ultrasound of thyroid completed. Follow up as needed. documented in this encounter [facility] 09-16-2022 History of Presen t illness Narrative This is a 51 year old female who presents today with: Patient presents with: Acute Visit: lump on back of left shoulder HISTORY OF PRESENT ILLNESS: Mary Birch is a 51 year old female. Patient presents with: Acute Visit: lump on back of left shoulder Lump behind left arm. Noticeable about a year ago but seems to be getting bigger. Non-tender to touch but has been having some left arm pain with tingling depending on arm position. 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 Santiago CONTROL NASAL HEMORRHAGE ANTERIOR SIMPLE 1980 FOOT BILATERAL OP SURGERY 1998 plantar fasciitis PAST SURGICAL HISTORY OF D & C x 3 between 1994 and 1999 THYROIDECTOMY TOTAL/COMPLETE 1998 left side, non cancerous nodule TONSILLECTOMY & ADENOIDECTOMY <AGE 11 ALLERGIES Penicillins and Bee Sting MEDICATIONS Current Outpatient Medications Medication Sig levothyroxine (SYNTHROID) 75 mcg tablet Take 1 tablet by mouth once daily. Take on empty stomach. For Thyroid meloxicam (MOBIC) 15 mg tablet TAKE 1 TABLET BY MOUTH ONCE DAILY. DO NOT TAKE IN CONJUNCTION WITH OTHER NSAID. TYLENOL IS OK. ferrous sulfate (IRON) 325 mg (65 mg iron) tablet Take 325 mg by mouth. POTASSIUM-99 ORAL Take by mouth. buPROPion XL (WELLBUTRIN XL) 300 mg 24 hr tablet Take 1 tablet by mouth once daily. FLUoxetine (PROZAC) 40 mg capsule Take 1 capsule by mouth once daily. ZINC ACETATE ORAL Take by mouth. ascorbic acid (VITAMIN C ORAL) Take by mouth. QUERCETIN DIHYDRATE, BULK, MISC MEDICATION, NON-DATABASE Take 25 mg by mouth once daily. CBD oil Cholecalciferol, Vitamin D3, 1,000 unit ORAL Cap Take 3,000 Units by mouth. No current facility-administered medications for this visit. FAMILY HISTORY Problem Relation Age of Onset Diabetes Father insulin Genitourinary () Father kidney failure - dialysis Cervical Cancer Mother Heart Maternal Grandmother arrythmia - pacemaker Osteoporosis Maternal Grandmother Psychiatry Maternal Grandmother depression Stroke Maternal Grandmother None Son None Son None Son None Son None Daughter Social History Tobacco Use Smoking status: Former Years: 4.00 Types: Cigarettes Quit date: 09/18/1993 Years since quittin.0 Smokeless tobacco: Never Tobacco comments: less than 1/2 pack per day Vaping Use Vaping Use: Never used Substance Use Topics Alcohol use: Yes Comment: rare Drug use: No REVIEW OF SYSTEMS GENERAL: No weight loss, malaise or fevers/chills HEENT: Negative for frequent or significant headaches, No changes in hearing or vision. NECK: Negative for lumps, goiter, pain and significant neck swelling RESPIRATORY: Negative for cough, hemoptysis, wheezing, dyspnea or shortness of breath CARDIOVASCULAR: Negative for chest pain, leg swelling, orthopnea, or palpitations GI: No nausea, vomiting, or diarrhea/constipation. No hematochezia/melena. No heartburn or reflux symptoms. : No history of dysuria, frequency or incontinence MUSCULOSKELETAL:+ Lump left arm SKIN: Negative for lesions, rash, and itching ENDOCRINE: Negative for cold or heat intolerance, polyuria, polydipsia and goiter NEURO: No history of headaches, syncope, paralysis, seizures or tremors MOOD: Negative for depression, anxiety, or suicidal ideation. EXAM: BP 116/82 Pulse 85 Resp 16 Wt 127 kg (280 lb) LMP 05/17/2022 SpO2 97% BMI 41.95 kg/m PHYSICAL EXAM: General Appearance: Well appearing, alert, in no acute distress, well-hydrated, well nourished. Skin: + Mobile, nodule, noted on the left upper arm. Non-tender, no color change noted, full ROM of arm. Head: Normocephalic, no masses, lesions, tenderness or abnormalities. Eyes: Anicteric sclera. Extraocular movements are intact. Extremities: No deformities, edema, skin discoloration, clubbing or cyanosis. Good capillary refill. Peripheral Pulses: Normal, Capillary refill <2secs, strong peripheral pulses, Pulses palpable. Neurologic: Gait normal. Sensation grossly intact. ASSESSMENT/PLAN: 1. Lipoma of left upper extremity - ICD9: 214.8, ICD10: D17.22 - Schedule appointment with general surgery for further evaluation of possible lipoma. - CONSULT TO GENERAL SURGERY Follow-up as needed. Discussed treatment plan and patient voices understanding. Patient's questions answered appropriately. Medications and potential side effects were discussed and patient voices understanding. Galilea Mccoy APRN.CNP This note was partially generated using Cloudian voice recognition system. Note was reviewed for accuracy. There may be minor misspellings or grammar miscues with Cloudian voice recognition. documented in this encounter [facility] 07-12-2022 Miscellaneous Notes Thyroid lab orders reordered per lab request. Galilea Mccoy APRN.CNP documented in this encounter [facility] 07-07-2022 Note Patient Outreach (IN [facility]) MARY BIRCH ([id number]) 1970 F Date Time Provider Department 07/07/22 DORIAN BEST During your visit today, we recorded the following information about you: Allergies As of Date: 07/07/2022 Noted Allergy Reaction PENICILLINS 09/18/2009 4 - Hives BEE STING 09/18/2009 7 - Swelling Comments: No respiratory reaction Date Reviewed: 05/24/2022 Reviewed by: Galilea Mccoy APRN.SENIOR ANDROID DEVELOPER - Fully Assessed Visit Diagnosis:Encounter for screening mammogram for breast cancer [Z12.31] Order(s):[facility] SCREENING [[id number]] Order #: [id number] FUTURE Prescriptions as of 07/12/2022 - levothyroxine (SYNTHROID) 75 mcg tablet Take 1 tablet by mouth once daily. Take on empty stomach. For Thyroid - meloxicam (MOBIC) 15 mg tablet TAKE 1 TABLET BY MOUTH ONCE DAILY. DO NOT TAKE IN CONJUNCTION WITH OTHER NSAID. TYLENOL IS OK. - ferrous sulfate (IRON) 325 mg (65 mg iron) tablet Take 325 mg by mouth. - POTASSIUM-99 ORAL Take by mouth. - buPROPion XL (WELLBUTRIN XL) 300 mg 24 hr tablet Take 1 tablet by mouth once daily. - FLUoxetine (PROZAC) 40 mg capsule Take 1 capsule by mouth once daily. - ZINC ACETATE ORAL Take by mouth. - ascorbic acid (VITAMIN C ORAL) Take by mouth. - QUERCETIN DIHYDRATE, BULK, MISC - MEDICATION, NON-DATABASE Take 25 mg by mouth once daily. CBD oil - Cholecalciferol, Vitamin D3, 1,000 unit ORAL Cap Take 3,000 Units by mouth. Problem List As Of Date 07/07/2022 Noted Resolved Depression [F32.A] 09/18/2009 Hypothyroidism [E03.9] 09/18/2009 Sciatica [M54.30] 12/24/2010 Multinodular goiter (nontoxic) [E04.2] 12/16/2014 Vocal cord paralysis [J38.00] 08/17/2018 Encounter Status:Closed by EPIC, PRODUSER on 07/12/22 [facility] 06-16-2022 Note Date of Service 06/16/2022 Chief Complaint Right hip arthroplasty Subjective Patient seen and evaluated this morning while resting in bed. She states that she is doing well this morning and states that her pain is fairly well-controlled. She denies any new problems or concerns this morning. She has been up to the bathroom through the night without any difficulty. She denies any fever, chills, cough, shortness of breath, chest pain, abdominal pain, nausea or dysuria. Lab results and vital signs reviewed this morning. Patient is medically optimized for discharge home today from hospitalist perspective. All questions answered. Objective Vitals and Measurements T: 36.7 C (Oral) TMIN: 36.7 C (Oral) TMAX: 36.9 C (Oral) HR: 63(Monitored) RR: 18 BP: 103/51 SpO2: 97% Intake and Output 7AM Yesterday to 7AM Today Intake and Output (Last 24 hours) Intake Supplement Intake 240.00 Output Total Summary Total Intake 240.00 Total Output 0.00 Fluid Balance 240.00 Physical Exam General: No acute distress. Patient is alert and appropriate. Skin: No rash. Skin is warm, dry and intact. HEENT: Head is normocephalic, atraumatic. Pupils are equal, round and reactive. Neck: Supple. No lymphadenopathy, thyromegaly. Lungs: Bilaterally clear but diminished without crepitation or wheeze. Unlabored. Heart: Heart is regular rhythm, S1, S2. No murmurs, gallops or rubs. Abdomen: Abdomen is soft, nontender. Bowels sounds present in all quadrants. Extremities: No clubbing, cyanosis, or edema. Peripheral pulses palpable. No calf tenderness. Right hip surgical dressing is dry and intact. Neurological: Patient is awake and alert to person, place and time. Following simple commands, moving all extremities. Weight Dosing Weight: 127.3 kg (06/15/22) Dosing Weight: 127.3 kg (06/15/22) Medications No qualifying data available Lab Results 06/16 05:18 WBC: 11.0 H Hgb: 11.7 L Hct: 35.6 L Platelet: 264 Neutrophil %: 78.9 Glucose Level: 102 Sodium Level: 142 Potassium Level: 4.7 BUN: 15 Creatinine Lvl (s): 0.83 Imaging Results and Diagnostics XR Hip Right w/Pelvis 4 Views Result Date: June 15, 2022 Verified By: JOSELITO VILLATORO DO CLINICAL STATEMENT: IMPRESSION: 1. Right total hip arthroplasty without evidence of hardware complication. 2. Expected postoperative changes of the soft tissues. EKG No qualifying data available. Assessment/Plan 1. Osteoarthritis Chronic, s/p right hip arthroplasty *POD # 1. *Management per primary team. *Continue PRN pain medication and antiemetics. 2. Hypothyroidism Chronic *Continue Synthroid at current dose. 3. Depression Chronic *Continue bupropion and fluoxetine at current doses. Patient seen and examined this morning while resting in bed. Physical exam unremarkable. Reviewed lab results and vital signs. Patient is medically optimized for discharge home today from hospitalist perspective. DVT prophylaxis with aspirin 81 mg PO BID. Code status: Full Code. Labs, diagnostic test and progress notes reviewed as noted in HPI. Plan of care discussed with patient. All questions answered. Patient verbalizes understanding and is agreeable with plan of care. This case was discussed with collaborating physician, Dr. Bulmaro Mooney. Time Spent 35 minutes Digitally Signed by MAREK VALENTIN on 06/16/2022 09:19 PM [facility] 06-16-2022 Nurse Discharge summary Discharged to home with . Escorted to the exit via w/c per NOEMI Guevara. Left at 1400. [facility] 06-16-2022 Note Discharge Instructions Thank you for allowing [facility] to assist you with your healthcare needs. The following is important discharge information regarding your hospital visit. Your Care Team DORIAN BEST MD Your Diagnosis Osteoarthritis Hypothyroidism Depression What to do next Follow Up Appointments Follow Up with SILVANO RAO PA-C, Orthopedic When 06/28/2022 04:00 PM EDT Why: This is your Surgery Follow up appt. Where: [facility] [address] [place] [address]- Follow Up with [facility] When 06/17/2022 01:30 PM EDT Why: This is your Physical Therapy appt. Where: [address] [address]- [phone] The Following Activity and Diet Have Been Ordered for You No qualifying data available. No qualifying data available. The Following Equipment Has Been Ordered for You No qualifying data available. The Following Treatments Have Been Ordered for You Discharge Labs No qualifying data available. Discharge Radiology No qualifying data available. Other Therapies No qualifying data available. Post Acute Orders No qualifying data available. Someone Will Contact You Regarding These Home Health Referrals No home referrals have been ordered for you. No one will call you. Allergies Bee Stings (HIVES) penicillin (HIVES) Medications Please ask your primary doctor or pharmacist before taking any other medication not listed, including over the counter drugs, herbal medications, vitamins and or supplements as they may interact with your home medications. What How Much When Instructions Last Dose New acetaminophen (Tylenol) 1,000 Milligram by mouth Three (3) times a day not to exceed 3000 mg/ day 06/16/22 8:49am New aspirin 81 Milligram by mouth Twice daily with meals Take 81 mg aspirin twice daily with food for 4 weeks postoperatively for DVT prophylaxis. 06/16/22 8:49am New docusate-senna (Senokot S) 2 tab(s) by mouth Two (2) times a day Take until first bowel movement, then as needed 06/16/22 8:49am New doxycycline 100 Milligram by mouth Every 12 hours Duration: 14 Days Take for 2 weeks postoperatively not given in hospital New famotidine (Pepcid 20 mg oral tablet) 1 tab(s) by mouth Once a day not given in hospital New oxyCODONE (oxyCODONE 5 mg oral tablet ( IMMEDIATE release )) See instructions 1-2 tab(s) Oral q4h 06/16/22 8:49am Unchanged buPROPion (buPROPion 300 mg/ 24 hours (XL) oral tablet, extended release) 1 tab(s) by mouth Once a day 06/16/22 8:49am Unchanged cholecalciferol (Vitamin D3 50 mcg (2000 intl units) oral tablet) 2 tab(s) by mouth Every day not given in hospital Unchanged ferrous sulfate (ferrous sulfate 325 mg (65 mg elemental iron) oral delayed release tablet) 1 tab(s) by mouth Once a day 06/15/22 3:12pm Unchanged FLUoxetine (FLUoxetine 40 mg oral capsule) 1 cap by mouth Once a day TAKE 1 CAPSULE BY MOUTH ONCE DAILY not given in hospital Unchanged herbal/ nutritional product by mouth Two (2) times a day CBD OIL not given in hospital Unchanged herbal/ nutritional product 2 tab(s) by mouth Every day POTASSIUM not given in hospital Unchanged herbal/ nutritional product 1 TAB by mouth Every day QUCERTIN IMMUNE BOOSTER not given in hospital Unchanged levothyroxine (levothyroxine 75 mcg (0.075 mg) oral tablet) 1 tab(s) by mouth Once a day not given in hospital Unchanged meloxicam (meloxicam 15 mg oral tablet) 1 tab(s) by mouth Once a day not given in hospital Please take this list to your next doctor s visit. Bring all medications you take, including over the counter medications, herbals and other supplements with you to your doctor s visit. Patients and families are reminded to discard old lists and to update any records with all medication providers or retail pharmacies. Medication Leaflets docusate and senna (DOK brett sate and SEN a) Colace 2-in-1, Dok Plus, Dary-Colace, Senexon-S, Senna Plus, Senna S, Senna-Time S, Senokot S, SenoSol-SS, Stool Softener with Laxative What is the most important information I should know about docusate and senna? Use exactly as directed on the label, or as prescribed by your doctor. What is docusate and senna? Docusate is a stool softener. Senna is a laxative. Docusate and senna is a combination medicine used to treat occasional constipation. Docusate and senna may also be used for purposes not listed in this medication guide. What should I discuss with my healthcare provider before using docusate and senna? You should not use this medicine if you are allergic to docusate or senna, or if you are also taking mineral oil. Ask a doctor or pharmacist if this medicine is safe to use if you have ever had: nausea or vomiting; stomach pain; a sudden change in bowel habits that lasts for 2 weeks or longer; or an intestinal disorder such as Crohn's disease or ulcerative colitis. Ask a doctor before using this medicine if you are or . Do not give this medicine to a child younger than 2 years old without medical advice. How should I use docusate and senna? Use exactly as directed on the label, or as prescribed by your doctor. Take docusate and senna with a full glass of water. It may be best to take this medicine at night or at bedtime. Docusate and senna should cause you to have a bowel movement within 6 to 12 hours. Do not take docusate and senna for longer than 7 days in a row, unless your doctor tells you to. Call your doctor if your constipation does not improve or if it gets worse after taking docusate and senna. Store at room temperature away from moisture and heat. What happens if I miss a dose? Since docusate and senna is used when needed, you may not be on a dosing schedule. Skip any missed dose if it's almost time for your next dose. Do not use two doses at one time. What happens if I overdose? Seek emergency medical attention or call the Poison Help line at . Overdose symptoms may include nausea, vomiting, stomach pain, or diarrhea. What should I avoid while using docusate and senna? Ask a doctor or pharmacist before using any other laxative or other stool softener that may contain ingredients similar to docusate or senna. What are the possible side effects of docusate and senna? Get emergency medical help if you have signs of an allergic reaction: hives; difficulty breathing; swelling of your face, lips, tongue, or throat. Stop using docusate and senna and call your doctor at once if you have: rectal bleeding; severe stomach pain, nausea, vomiting; or no bowel movement. Common side effects may include: gas, bloating; diarrhea; or mild nausea. This is not a complete list of side effects and others may occur. Call your doctor for medical advice about side effects. You may report side effects to FDA at 9-688-GQG-4517. What other drugs will affect docusate and senna? Other drugs may affect docusate and senna, including prescription and keqt-irb-rpekjkm medicines, vitamins, and herbal products. Tell your doctor about all your current medicines and any medicine you start or stop using. Where can I get more information? Your pharmacist can provide more information about docusate and senna. Remember, keep this and all other medicines out of the reach of children, never share your medicines with others, and use this medication only for the indication prescribed. Every effort has been made to ensure that the information provided by [employer]. ('[employer]') is accurate, up-to-date, and complete, but no guarantee is made to that effect. Drug information contained herein may be time sensitive. [employer] information has been compiled for use by healthcare practitioners and consumers in the [place] and therefore [employer] does not warrant that uses outside of the [place] are appropriate, unless specifically indicated otherwise. [employer]'s drug information does not endorse drugs, diagnose patients or recommend therapy. [employer] drug information is an informational resource designed to assist licensed healthcare practitioners in caring for their patients and/or to serve consumers viewing this service as a supplement to, and not a substitute for, the expertise, skill, knowledge and judgment of healthcare practitioners. The absence of a warning for a given drug or drug combination in no way should be construed to indicate that the drug or drug combination is safe, effective or appropriate for any given patient. [employer] does not assume any responsibility for any aspect of healthcare administered with the aid of information [employer] provides. The information contained herein is not intended to cover all possible uses, directions, precautions, warnings, drug interactions, allergic reactions, or adverse effects. If you have questions about the drugs you are taking, check with your doctor, nurse or pharmacist. Copyright 7498-4698 [employer]. Version: 3.02. Revision Date: 04/23/2020. Education Materials [facility] Post-operative Instructions PLEASE FOLLOW [facility] POST-OP INSTRUCTIONS GIVEN WATCH FOR SIGNS OF INFECTION: call the office ([phone]) if experencing any of the following: (Usually appears 36-48 hours after surgery) Increased temperature (101 degrees Fahrenheit or higher) Redness or swelling Increased uncontrolled pain Foul odor or drainage Calf discomfort Significant swelling Or if having any chest pain, shortness of breath, or difficulty breathing or swallowing call the office or go the nearest Emergency Room. If you have any questions, please call your doctor at the number listed on your follow up instructions. Form: 338A [id number]) R: 06/13 Additional Information VACCINATE! IT SAVES LIVES! Members of the community who have not yet received the COVID-19 vaccine and would like to receive it can visit one of [facility] vaccine clinics. There are many vaccine clinic locations within the [facility]. For locations and available times, please visit https://gettheshot.coronavirus.o sdo.gov/. It is important to note that some COVID mobile vaccine clinics are held outdoors and may be canceled in rainy or stormy conditions. To learn more about pediatric vaccinations (ages 5-11), we invite you to visit the [facility] webpage. https://www.akInforSenses.org/p ages/8337-Mlxyt-Sdimpgyznhb-Freq ldxhyx-Ajbfd-Kkeguqwdf.html To learn more about the COVID-19 vaccine, we invite you to visit the CDC website for a list of frequently asked questions. https://www.cdc.gov/coronavirus/ 2019-ncov/vaccines/faq.html [facility] Patient Portal Access Instructions: Stay connected with your healthcare team and access your personal medical information anytime with the [facility] Patient Portal.If you would like a full copy of your medical records, please contact the [facility] Medical Records Department, Tuesday through Tuesday between 8a.m. and 4:30p.m. Please follow the directions below to access the portal: 1.Access the email account you provided upon registration to the hospital.2.Look for an invitation email from [facility].3.Open the email and access the invitation link: Accept Invitation to [facility]4.Fill in the required morris to create your account. Sign into [email or web address] with your username and password that you created in the above steps to stay up to date. You can then view a summary of results, a summary of your visits, and the ability to download your summaries to your computer or send the information securely to a physician. Remember that your healthcare information is confidential, so carefully consider who you will allow to register on the [facility] Patient Portal for access to your information. You can also access the [facility] Patient Portal on the [employer]. Simply click on Health Records under Health Data and then click on the [facility] logo. HOW TO SAFELY DISPOSE OF PRESCRIPTION MEDICATIONS Please use one of the following methods to safely dispose of your unused medications. 1.Use a drug disposal kit: the drug disposal pouch allows you to safely discard your old and unused drugs. Ask your nurse to give you one when you are discharged.2.Visit a local take-back location: Many local pharmacies and police departments have programs that collect old and unwanted prescription drugs. Call your local pharmacy or go to http://xMatters.Zuberance/5C8Kj9f to find one close to you.3.Make use of household items: Use cat litter or old coffee grounds to dispose medications if other options are not available. Mix your drugs with these household products, seal them in an airtight container and throw it into the garbage. Call [facility]: [phone] to be sure your drugs can be disposed of in this way. Some medicines may require a different approach.4.Never flush your medications down the toilet. IF YOU HAVE BEEN PRESCRIBED AN OPIOID FOR PAIN If you have been prescribed an opioid (such as hydrocodone, oxycodone or morphine), it is critical to understand the possible side effects and risks of opioid pain medications. Even when taken as directed, opioids can have several side effects including: Tolerance, meaning you might need to take more of a medication for the same pain relief. Nausea, vomiting and/or constipation. Sleepiness, dizziness, dry mouth, confusion, depression or itching. Physical dependence, meaning you have withdrawal symptoms when a medication is stopped, can develop within a few days. KNOW YOUR RESPONSIBILITIES It is important to know exactly how much and how often to take the opioid pain medications you are prescribed. Never take opioids in higher amounts or more often than prescribed. Do not combine opioids with alcohol or other drugs that cause drowsiness, such as benzodiazepines, also known as benzos, including diazepam and alprazolam, muscle relaxants or sleep aids. Never sell or share prescription opioids. This is illegal. Store opioids in a secure place and out of reach of others (including children, family, friends and visitors). The last page of this document has been signed and retained as a CHART COPY. Signatures Patient Education Materials [facility] Post-op Instruction 09/2016 (58685) Medication Leaflets Reyna Betancourt My discharge plan and instructions have been reviewed and explained to me and I,MACEY BIRCHHER Linnette understand my current condition and have read and understand these discharge instructions. I have received a written copy of the plan/instructions. If I have questions, I am aware that I should contact my doctor. Patient/Construction Tech Signature: Date/Time: Relationship to Patient: Witness Name/Signature: Date/Time: [facility] 06-16-2022 Hospital Discharg e instructions Patient Education 06/16/2022 07:26:24 5 - [facility] Post-op Instruction 09/2016 (59532) [facility] Post-operative Instructions PLEASE FOLLOW [facility] POST-OP INSTRUCTIONS GIVEN WATCH FOR SIGNS OF INFECTION: call the office ([phone]) if experencing any of the following: (Usually appears 36-48 hours after surgery) Increased temperature (101 degrees Fahrenheit or higher) Redness or swelling Increased uncontrolled pain Foul odor or drainage Calf discomfort Significant swelling Or if having any chest pain, shortness of breath, or difficulty breathing or swallowing call the office or go the nearest Emergency Room. If you have any questions, please call your doctor at the number listed on your follow up instructions. Form: 338A ([id number]) R: 06/13 Follow Up Care 05/26/2022 13:23:40 With:[facility] Address: [address] [place] [address]- [phone] When:06/17/2022 13:30:00 Comments:This is your Physical Therapy appt. With:SILVANO RAO PA-C, Orthopedic Address: [facility] [address] [place] [address] [id number] When:06/28/2022 16:00:00 Comments:This is your Surgery Follow up appt. [facility] 06-16-2022 Note Date of Service June 16, 2022 Subjective The patient was sitting in bed upon examination. Patient denies any chest pain, shortness of breath, dizziness, lightheadedness, nausea or vomiting, or calf pain. No adverse overnight events. Pain has been controlled on medications. Patient overall is doing well this morning. She denies any significant complaints. She states she has been up walking in her room as well as going to the bathroom without difficulty. She was initially planned for outpatient procedure however due to elevated BMI greater than 40.0 patient required observation stay to get appropriate antibiotics. She has all her medications from her preoperative visit except for aspirin and senna in which she will rock picker upon discharge. Objective Vitals and Measurements T: 36.9 C (Oral) TMIN: 35.7 C (Temporal Artery) TMAX: 36.9 C (Oral) HR: 59 RR: 18 BP: 94/48 SpO2: 93% HT: 180.3 cm WT: 127.3 kg BMI: 39.16 Intake and Output 7AM Yesterday to 7AM Today Intake and Output (Last 24 hours) Intake Administration Information 2716.16 Supplement Intake 240.00 Output Intra-Op EBL 250.00 Urine Count 1.00 Total Summary Total Intake 2956.16 Total Output 250.00 Fluid Balance 2706.16 Physical Exam Vital signs stable, afebrile Right hip is soft and supple JOON hose and SCDs are in place bilaterally Patient is able to plantarflex and dorsiflex actively Sensation is intact to saphenous, sural, superficial and deep peroneal, and tibial distribution Dressing is clean dry and intact Negative signs and symptoms of DVT, negative Homans bilaterally Weight Dosing Weight: 127.3 kg (06/15/22) Dosing Weight: 127.3 kg (06/15/22) Medications Medications (26) Active Scheduled: (15) acetaminophen 500 mg Tablet 1,000 mg 2 tab(s), Oral, q8h aspirin 81 mg Chewable 81 mg 1 tab(s), Oral, BIDM bisacodyl 5 mg EC tablet 10 mg 2 tab(s), Oral, Once bupropion 150 mg / 12hr SR tablet 150 mg 1 tab(s), Oral, BID docusate sodium 100 mg Capsule 100 mg 1 cap(s), Oral, BID docusate-senna (Senokot S) 50 mg-8.6 mg Tablet 2 tab(s), Oral, BID doxycycline hyclate 100 mg Capsule 100 mg 1 cap(s), Oral, q12h famotidine 20 mg tablet 20 mg 1 tab(s), Oral, qDay ferrous sulfate 325 mg Tablet 325 mg 1 tab(s), Oral, qDay fluoxetine 20 mg Capsule 40 mg 2 cap(s), Oral, qDay levothyroxine 75 mcg tablet 75 mcg 1 tab(s), Oral, qDay magnesium hydroxide 8% Suspension 30 mL UD 30 mL, Oral, Daily meloxicam 7.5 mg tablet 7.5 mg 1 tab(s), Oral, BIDM multivitamin (Myadec) with minerals Therapeutic Multiple Vitamins with Minerals Tablet 1 tab(s), Oral, qDayM ondansetron 2 mg/ 1 mL 2 mL INJ 4 mg 2 mL, IV Push, q8h Continuous: (1) Lactated Ringers 1,000 mL 1,000 mL, Intravenous, 100 mL/hr PRN: (10) acetaminophen 325 mg Tablet 650 mg 2 tab(s), Oral, q4h diphenhydramine 25 mg tablet 25 mg 1 tab(s), Oral, q6h diphenhyDRAMINE 50 mg/mL (1 mL) INJ 25 mg 0.5 mL, IV Push, q6h ketorolac 30 mg/mL (1 mL) vial 15 mg 0.5 mL, IV Push, q6h morphine 2 mg/mL 1 mL syringe 2 mg 1 mL, IV Push, q1h ondansetron 2 mg/ 1 mL 2 mL INJ 4 mg 2 mL, IV Push, q8h oxycodone 5 mg tablet (immediate release) 5 mg 1 tab(s), Oral, q4h oxycodone 5 mg tablet (immediate release) 10 mg 2 tab(s), Oral, q4h prochlorperazine 10 mg/2 mL vial 5 mg 1 mL, IV Push, q6h sodium biphosphate-sodium phosphate 19 gm-7 gm Enema 133 mL, Rectal, qDay Lab Results 06/16 05:18 WBC: 11.0 H Hgb: 11.7 L Hct: 35.6 L Platelet: 264 Neutrophil %: 78.9 Glucose Level: 102 Sodium Level: 142 Potassium Level: 4.7 BUN: 15 Creatinine Lvl (s): 0.83 EKG No qualifying data available. Assessment/Plan 1. Osteoarthritis 1. Status post right direct anterior total hip arthroplasty postop day #1 2. Continue pain medications: Tylenol, meloxicam, oxycodone. Do not take any other nonsteroidal anti-inflammatories while on meloxicam/Mobic 3. DVT prophylaxis: Take 81 mg aspirin twice daily with food for 4 weeks postoperatively for DVT prophylaxis. 4. Physical therapy: Weightbearing as tolerated with walker 5. H & H: 11.7/35.6, asymptomatic. Postoperative anemia secondary to acute blood loss from surgery without intraoperative complications. 6. Reactive leukocytosis: Currently 11.0, afebrile. Patient did receive Decadron intraoperatively 7. Continue antibiotics for 2 weeks postoperatively due to elevated BMI greater than 40.0: I discussed with the patient potential side effects with the doxycycline including hypersensitivity to the sunlight and must take appropriate precautions. Also recommended probiotic while taking the antibiotic for 2 weeks postoperatively. Patient voiced understanding and agreement. 8. Encouraged incentive spirometry 9. Continue postoperative medical management per medicine 10. Disposition: Plan will be for discharge home today as long as her pain is well controlled, tolerates therapy, and medically stable. Patient has all her medications from her preoperative appointment except for [id number] aspirin 81 mg and senna. She states she will pick these up upon discharge today. Patient has outpatient physical therapy established to begin tomorrow. She will follow-up per postop instructions. Patient will contact her office with any concerns or questions. I have reviewed the [place] Automated Rx Reporting System (OARRS) report for this patient for refill pattern and other prescriber involvement as part of the appropriate surveillance for the provision of acute and chronic controlled medications. The report was requested and reviewed on the date of this entry, and was considered in the prescribing process This dictation was created using voice recognition software. Phonetic and/or grammatical errors may exist. 2. Hypothyroidism 3. Depression Digitally Signed by SILVANO RAO PA-C on 06/16/2022 07:20 AM [facility] 06-15-2022 Evaluation + Plan note Diagnostic Tests PendingUrine test (LAB) 5/9/23 [facility] 06-15-2022 Note ORIGINAL EXAMINATION: ONE XRAY VIEW OF THE PELVIS AND TWO XRAY VIEWS RIGHT HIP 06/15/2022 9:40 am COMPARISON: None. HISTORY: ORDERING SYSTEM PROVIDED HISTORY: Reason for Exam: Status Post Arthroplasty FINDINGS: The lateral radiographic views are essentially nondiagnostic given under penetration and patient habitus. Pat interval placement of right total hip arthroplasty hardware without evidence of hardware complication. Expected postoperative changes of the soft tissues are noted relating to soft tissue gas. The pelvic ring and visible sacrum are intact. Partially visible left total hip arthroplasty hardware is noted without visible evidence of hardware complication. Mild degenerative changes of the pubic symphysis. Hprl-gu-[id number] lower lumbar spondylosis, incompletely evaluated on this exam. IMPRESSION: 1. Right total hip arthroplasty without evidence of hardware complication. 2. Expected postoperative changes of the soft tissues. Interpreted by: Joselito Villatoro DO Preliminary Report By: Joselito Villatoro DO Electronically signed By Joselito Villatoro DO Dictated Date: 06/15/2022 9:54:06 AM Prelim Date: 06/15/2022 9:55:42 AM Sign Date: 06/15/2022 9:55:42 AM Ordering Provider: LORNI SANTIAGO [facility] 06-15-2022 Note ORIGINAL Images acquired, not reported on this accession number. [facility] 06-15-2022 Note ORIGINAL Images acquired, not reported on this accession number. [facility] 06-15-2022 Note ORIGINAL EXAMINATION: ONE XRAY VIEW OF THE PELVIS AND TWO XRAY VIEWS RIGHT HIP 06/15/2022 9:40 am COMPARISON: None. HISTORY: ORDERING SYSTEM PROVIDED HISTORY: Reason for Exam: Status Post Arthroplasty FINDINGS: The lateral radiographic views are essentially nondiagnostic given under penetration and patient habitus. Pat interval placement of right total hip arthroplasty hardware without evidence of hardware complication. Expected postoperative changes of the soft tissues are noted relating to soft tissue gas. The pelvic ring and visible sacrum are intact. Partially visible left total hip arthroplasty hardware is noted without visible evidence of hardware complication. Mild degenerative changes of the pubic symphysis. [id number] lower lumbar spondylosis, incompletely evaluated on this exam. IMPRESSION: 1. Right total hip arthroplasty without evidence of hardware complication. 2. Expected postoperative changes of the soft tissues. Interpreted by: Joselito Villatoro DO Preliminary Report By: Joselito Villatoro DO Electronically signed By Joselito Villatoro DO Dictated Date: 06/15/2022 9:54:06 AM Prelim Date: 06/15/2022 9:55:42 AM Sign Date: 06/15/2022 9:55:42 AM Ordering Provider: LORIN SANTIAGO [facility] 06-15-2022 Anesthesiology Consult note Patient: MARY BIRCH Age: 51 years Sex: Female : 1970 Associated Diagnoses: None Author: CHOCO MALDONADO Assessment Postanesthesia assessment Vitals: Reviewed Results: Vital signs from flowsheet : Vital Signs(Date Range: 06/14/2022 0:00 EDT - 06/15/2022 9:16 EDT) . Mental status: at preoperative baseline, alert & oriented x 4. Respiratory function: lungs are clear to auscultation. Respiratory support: none. CV function: Normal rate. Cardiovascular support: none. Pain. Nausea status: denies nausea. Postoperative hydration status: within normal limits. Digitally Signed by CHOCO MALDONADO on 06/15/2022 09:16 AM [facility] 06-15-2022 Anesthesiology Consult note Patient: MARY BIRCH Age: 51 years Sex: Female : 1970 Associated Diagnoses: None Author: CHOCO MALDONADO Preoperative Information Time of last food or liquid consumption: 06/15/2022 00:00:00 Anesthesia history Patient's history: negative. Family's history: negative. Health Status Allergies: Allergic Reactions (Selected) Severity Not Documented Bee Stings- Hives. Penicillin- Hives., Allergies (2) ActiveReaction Bee StingsHIVES penicillinHIVES Current medications: (Selected) Inpatient Medications Ordered Betadine 10% topical solution: 17.5 mL, mL/hr, Topical (INT), PREOP pharm LR 1,000 mL: 20 mL/hr, Intravenous, Stop: 06/15/22 23:59:00 EDT Naropin 100 mg + Toradol 15 mg + EPINEPHrine 1 mg/mL injectable solution 0.3 mg + morphine 2.5 mg...: 100 mg, 20 mL, mL/hr, Other, PREOP pharm Naropin 100 mg + Toradol 15 mg + EPINEPHrine 1 mg/mL injectable solution 0.3 mg + morphine 2.5 mg...: 100 mg, 20 mL, mL/hr, Other, PREOP pharm tranexamic acid 1 g / 100 mL 0.7% NaCl PMX: 1 gram(s), 100 mL, 300 mL/hr, IV Piggyback, AsDirected Documented Medications Documented FLUoxetine 40 mg oral capsule: TAKE 1 CAPSULE BY MOUTH ONCE DAILY Vitamin D3 50 mcg (2000 intl units) oral tablet: 50 mcg, 1 tab(s), Oral, Daily, 30 tab(s), 0 Refill(s) buPROPion 300 mg/24 hours (XL) oral tablet, extended release: TAKE 1 TABLET BY MOUTH ONCE DAILY herbal/nutritional product: 1 TAB, Oral, Daily, POTASSIUM, 0 Refill(s) herbal/nutritional product: 1 TAB, Oral, Daily, QUCERTIN IMMUNE BOOSTER, 0 Refill(s) herbal/nutritional product: CBD OIL, 0 Refill(s) levothyroxine 75 mcg (0.075 mg) oral tablet: TAKE 1 TABLET BY MOUTH ONCE DAILY ON AN EMPTY STOMACH FOR THYROID meloxicam 15 mg oral tablet: TAKE 1 TABLET BY MOUTH ONCE DAILY. DO NOT TAKE IN CONJUNCTION WITH OTHER NSAID. TYLENOL IS OK., Medications (5) Active Scheduled: (4) povidone iodine topical 17.5 mL, Topical (INT), PREOP pharm ropivacaine 100 mg + ketorolac 15 mg + epinephrine 0.3 mg + morphine 2.5 mg 100 mg 20 mL, Other, PREOP pharm ropivacaine 100 mg + ketorolac 15 mg + epinephrine 0.3 mg + morphine 2.5 mg 100 mg 20 mL, Other, PREOP pharm tranexamic acid PMX 1 gram(s) 100 mL, IV Piggyback, AsDirected Continuous: (1) Lactated Ringers 1,000 mL 1,000 mL, Intravenous, 20 mL/hr PRN: (0) Problem list: Active Problems (2) Osteoarthritis Vocal cord paralysis Histories Past Medical History: No active or resolved past medical history items have been selected or recorded., left vocal cord paralysis after thyroidectomy, BMI 39 Family History: Diabetes Father Procedure history: Thyroidectomy ([id number]). Comments: 06/01/2022 11:16 Zulma Salazar RN LEFT Total hip replacement ([id number]). Comments: 06/01/2022 11:17 Zulma Salazar RN LEFT Plantar fasciotomy ([id number]). Comments: 06/01/2022 11:17 Zulma Salazar RN BILATERAL Social History Social & Psychosocial Habits Alcohol 06/01/2022 Use: Never Substance Abuse 06/01/2022 Use: Never Tobacco 06/01/2022 Tobacco Use: Never (less than 100 in l Home/Environment 06/01/2022 Domestic Concerns None Living situation: Home/Independent Nutrition/Health 06/15/2022 Type of diet: Regular . Physical Examination Vital Signs 06/15/2022 7:45 EDT Heart Rate Monitored 55 bpm bpm Systolic Blood Pressure Non-Invasive 103 mmHg mmHg Diastolic Blood Pressure Non-Invasive 60 mmHg mmHg 06/15/2022 7:40 EDT Heart Rate Monitored 64 bpm bpm Respiratory Rate - Anes 19 br/min br/min Systolic Blood Pressure Non-Invasive 90 mmHg mmHg Diastolic Blood Pressure Non-Invasive 49 mmHg mmHg 06/15/2022 7:35 EDT Heart Rate Monitored 60 bpm bpm Respiratory Rate - Anes 0 br/min br/min Systolic Blood Pressure Non-Invasive 106 mmHg mmHg Diastolic Blood Pressure Non-Invasive 64 mmHg mmHg 06/15/2022 7:30 EDT Heart Rate Monitored 65 bpm bpm Respiratory Rate - Anes 17 br/min br/min Systolic Blood Pressure Non-Invasive 93 mmHg mmHg Diastolic Blood Pressure Non-Invasive 57 mmHg mmHg 06/15/2022 7:28 EDT Systolic Blood Pressure Non-Invasive 109 mmHg mmHg Diastolic Blood Pressure Non-Invasive 45 mmHg mmHg 06/15/2022 7:25 EDT Heart Rate Monitored 62 bpm bpm Respiratory Rate - Anes 0 br/min br/min Systolic Blood Pressure Non-Invasive 127 mmHg mmHg Diastolic Blood Pressure Non-Invasive 45 mmHg mmHg 06/15/2022 7:20 EDT Respiratory Rate - Anes 0 br/min br/min Systolic Blood Pressure Non-Invasive 144 mmHg mmHg Diastolic Blood Pressure Non-Invasive 91 mmHg mmHg 06/15/2022 7:17 EDT Systolic Blood Pressure Non-Invasive 153 mmHg mmHg Diastolic Blood Pressure Non-Invasive 80 mmHg mmHg 06/15/2022 6:08 EDT Temperature Temporal Artery 36.3 DegC Peripheral Pulse Rate 77 bpm Respiratory Rate 19 br/min Vital Signs(last 24 hrs) Last Charted Heart Rate [id number] bpm (JUNE 15 07:45) Resp Rate 19 br/min (JUNE 15 06:08) [id number] mmHg (JUNE 15 07:45) DBP60 mmHg (JUNE 15 07:45) Measurements from flowsheet : Measurements 06/15/2022 6:08 EDT Height 180.3 cm Height in inches 71 inch(es) Admission Weight 127.3 kg Weight Lbs 280.1 lb Weight Method Stated Lulu Body Weight 70.76 kg Admission Body Mass Index 39.16 m2 Pain assessment: Pain Assessment 06/15/2022 6:35 EDT Primary Pain Intensity 4 06/15/2022 6:08 EDT Primary Pain Intensity 4 Pain Scale Type 0-10 Pain scale . General: Alert and oriented. Airway: Normal temporomandibular joint mobility. Mallampati classification: I (soft palate, fauces, uvula, pillars visible). Head: Normocephalic. Dentition Evaluation: Intact, Capped teeth. Neck: Supple. Respiratory: Lungs are clear to auscultation. Cardiovascular: Normal rate. Heart Sounds: Normal. Gastrointestinal: Soft. Musculoskeletal Normal range of motion. Integumentary: Intact. Neurologic: Alert. Review / Management Results review: No qualifying data available , Lab results 06/15/2022 7:51 EDT SN - PP - Body Position Supine Standard Intra-op 06/15/2022 7:50 EDT SN - PTCare - Thermals Forced Air Warming Device Upper Body 06/15/2022 7:49 EDT SN - Irl - Irrigant Normal Saline SN - Irl - Irrigant Normal Saline SN - Irl - Irrigant Sterile Water SN - IrI - Volume In 500 mL SN - IrI - Volume In 450 mL SN - Irl - Additive BETADINE (POVIDONE IODINE) SOLUT SN - Irl - Additive IRRIGATION CHG 0.05% IRRISEPT 12/CA [id number] SN - IrI - Volume Out 500 mL SN - IrI - Volume Out 450 mL 06/15/2022 7:49 EDT dexAMETHasone 4 mg mg 06/15/2022 7:48 EDT SN - CO - Route of Administration Local SN - CO - Route of Administration Local SN - CO - By (Single) SN - CO - By (Single) SN - CO - By (Single) SN - CO - By (Single) 06/15/2022 7:45 EDT Heart Rate Monitored 55 bpm bpm Systolic Blood Pressure Non-Invasive 103 mmHg mmHg Diastolic Blood Pressure Non-Invasive 60 mmHg mmHg Oxygen Saturation 94 % % 06/15/2022 7:44 EDT SN - CAt - Case Attendee SN - CAt - Case Attendee SN - CAt - Role Performed Hydrographer 06/15/2022 7:42 EDT SN - CTm - Surgery Start 06/15/2022 7:42 06/15/2022 7:42 EDT SN - CTm - Surgery Start Surgery Start 06/15/2022 7:40 EDT Heart Rate Monitored 64 bpm bpm Respiratory Rate - Anes 19 br/min br/min Systolic Blood Pressure Non-Invasive 90 mmHg mmHg Diastolic Blood Pressure Non-Invasive 49 mmHg mmHg Oxygen Saturation 93 % % 06/15/2022 7:35 EDT Heart Rate Monitored 60 bpm bpm Respiratory Rate - Anes 0 br/min br/min Systolic Blood Pressure Non-Invasive 106 mmHg mmHg Diastolic Blood Pressure Non-Invasive 64 mmHg mmHg Oxygen Saturation 94 % % 06/15/2022 7:30 EDT Heart Rate Monitored 65 bpm bpm Respiratory Rate - Anes 17 br/min br/min Systolic Blood Pressure Non-Invasive 93 mmHg mmHg Diastolic Blood Pressure Non-Invasive 57 mmHg mmHg Oxygen Saturation 98 % % tranexamic acid 1 gram(s) gram(s) 06/15/2022 7:28 EDT Systolic Blood Pressure Non-Invasive 109 mmHg mmHg Diastolic Blood Pressure Non-Invasive 45 mmHg mmHg 06/15/2022 7:26 EDT propofol 50 mg mg 06/15/2022 7:25 EDT Heart Rate Monitored 62 bpm bpm Respiratory Rate - Anes 0 br/min br/min Systolic Blood Pressure Non-Invasive 127 mmHg mmHg Diastolic Blood Pressure Non-Invasive 45 mmHg mmHg Oxygen Saturation 95 % % 06/15/2022 7:23 EDT propofol 50 mg mg 06/15/2022 7:20 EDT SN - Proc - Anesthesia Type Spinal SN - Proc - Actual Procedure ANTERIOR RIGHT TOTAL HIP ARTHROPLASTY 06/15/2022 7:20 EDT Respiratory Rate - Anes 0 br/min br/min Systolic Blood Pressure Non-Invasive 144 mmHg mmHg Diastolic Blood Pressure Non-Invasive 91 mmHg mmHg Oxygen Saturation 97 % % cefazolin 3 gram(s) gram(s) Sodium Chloride 0.9% 100 mL mL 06/15/2022 7:19 EDT SN - Assess - LOC Alert, Awake SN - Assess - Orientation Oriented X 3 SN - Assess - Post-op Skin Integrity Other See Comments SN - Assess - Abnormality Location BURN SN - Assess - Abnormality Type RIGHT FOREARM 06/15/2022 7:18 EDT SN - GCD - Case Level Level 5 06/15/2022 7:18 EDT SN - Cul - Culture Type No Specimen per Surgeon 06/15/2022 7:17 EDT Systolic Blood Pressure Non-Invasive 153 mmHg mmHg Diastolic Blood Pressure Non-Invasive 80 mmHg mmHg 06/15/2022 7:16 EDT SN - CTm - Anesthesia Start Time Anesthesia Start 06/15/2022 7:15 EDT midazolam 2 mg mg 06/15/2022 7:08 EDT SN - CAt - Case Attendee SN - CAt - Case Attendee SN - CAt - Case Attendee SN - CAt - Case Attendee SN - CAt - Case Attendee SN - CAt - Case Attendee SN - CAt - Case Attendee SN - CAt - Case Attendee SN - CAt - Case Attendee SN - CAt - Case Attendee SN - CAt - Case Attendee SN - CAt - Case Attendee SN - CAt - Case Attendee SN - CAt - Case Attendee SN - CAt - Case Attendee SN - CAt - Case Attendee SN - CAt - Role Performed Primary Surgeon SN - CAt - Role Performed Physician Pediatrician Active Practice SN - CAt - Role Performed CRIME SCENE PHOTOGRAPHER SN - CAt - Role Performed Preparation Center Coordinator 1 SN - CAt - Role Performed Preparation Center Coordinator 2 SN - CAt - Role Performed Scrub 1 SN - CAt - Role Performed Steamboat Pilot 1 SN - CAt - Role Performed Community Educator 06/15/2022 6:42 EDT SN - Preop - CTm Pt Ready for OR/Proced 06/15/2022 6:42 06/15/2022 6:42 EDT Infectious Disease Symptoms Patient states no symptoms Safety Brochure Information Reviewed Unable to complete Hillary Welcome Video Viewed No Teaching Evaluation No further teaching needed Admission Note-Nursing Same Day Patient History (Modified) 06/15/2022 6:41 EDT citric acid-sodium citrate Not Done: Not Appropriate at this Time (Not Done) 06/15/2022 6:35 EDT Primary Pain Intensity 4 celecoxib 400 mg mg famotidine 20 mg mg oxyCODONE 10 mg mg Lactated Ringers Injection 1,000 mL mL 06/15/2022 6:08 EDT Height 180.3 cm Height in inches 71 inch(es) Admission Weight 127.3 kg Weight Lbs 280.1 lb Weight Method Stated Lulu Body Weight 70.76 kg Admission Body Mass Index 39.16 m2 Temperature Temporal Artery 36.3 DegC Peripheral Pulse Rate 77 bpm Respiratory Rate 19 br/min Primary Pain Intensity 4 Pain Scale Type 0-10 Pain scale Heart Sounds ICU S1S2 Heart Rhythm Regular Respirations Unlabored Respiratory Pattern Regular Oxygen Therapy Room air Oxygen Saturation 97 % Abdomen Description Non-distended, Symmetric, Soft Abdomen Palpation Non-Tender, Soft Bowel Sounds All Quadrants Present Urinary Elimination Voiding, no difficulties Skin Temperature Warm Skin Description Tetherow Skin Integrity Intact IV Present Present Hand Left 06/15/2022 20 gauge Peripheral IV Activity: Insert new site Peripheral IV Dressing Condition: Clean, Dry, Intact Peripheral IV Dressing Activity: Transparent dressing Peripheral IV Line Status/Patency: Flushes easily Peripheral IV Line Care: Secured with tape Peripheral IV Site Condition: No complications Peripheral IV Equipment: Extension set, PRN Adaptor Peripheral IV Number of Attempts: 1 Extremity Movement Equal Characteristics of Speech Clear Level of Consciousness Alert EMILY Yes Strength All Extremities Strong Affect/Behavior Appropriate, Calm, Cooperative Orientation Oriented x 4 Allergies Yes Fiber Optics Engineer On Yes Consent Form Signed Yes Patient Dressed In Hospital gown, No undergarments Pre-op Preparation Jewelry removed, Piercings removed CHG Preoperative Wash/Wipe Night before procedure, Day of procedure Preop Nasal Swab Povidone-Iodine History & Physical Update On Chart Yes History & Physical On Chart Yes Orientation Assessment Oriented x 4 Activity Status ADL Up ad reddy Assistive Device None NPO Status Maintained Standard Safety ID band on, Allergy Band on, Call device within reach, Bed in low position, Wheels locked, Upper/Half-Length side-rails up, Safety level maintained, Non-Slip footwear Demonstrates Correct Call Light Use Yes Allergy Band on and Verified Yes Patient ID Band on and Verified Yes Implants Verified Yes Pacemaker/AICD Verified Yes Anesthesia Consent Signed Yes Blood Consent Signed Yes Last Fluid Intake 06/14/2022 20:30 Last Food Intake 06/14/2022 20:30 Last Void 06/15/2022 6:17 06/15/2022 6:05 EDT SN - Preop - CTm Pt in SDS Room 06/15/2022 6:00 . Assessment and Plan [place] [employer] Anesthesiologists (ASA) physical status classification: Class III. Anesthetic Preoperative Plan Premedication: intravenous. Anesthetic technique: Spinal. Regional: Spinal. Postoperative pain management: Per surgeon. Risks discussed: nausea, vomiting, headache, sore throat, dental injury, hypotension, allergic reaction, serious complications. Informed consent: signed by patient. Digitally Signed by CHOCO MALDONADO on 06/15/2022 07:55 AM [facility] 05-28-2022 Miscellaneous Notes Done by KARINE Subramanian MD Type of letter/form/fax request - Pre Op Clearance-Right total hip arthroplasty Form received from fax on 1 floor and placed on MD desk (Dr. Best) for completion. Completed form needs to be faxed to [facility] at [phone]. Pt had wellness exam with Galilea Mccoy on 05/24/22. Route to [place] when form completed for processing documented in this encounter [facility] 05-27-2022 Miscellaneous Notes Patient will be having hip surgery with [facility], recently seen for wellness exam, however needs to have a CBC completed. Tentatively cleared for surgery at this time pending test result. Galilea Mccoy APRN.CNP documented in this encounter [facility] 05-27-2022 Miscellaneous Notes Patient notified of pre-op paper update, verbalizes understanding of instructions. Choco Cavanaugh LPN Can you please call the patient and let her know that we have not received any preop paperwork to be completed. I just saw her in office and had labs completed, I am happy to fill out these forms for her and get them back to her surgeon. My fax number is [phone] Thank you. Galilea Mccoy APRN.KARINE Patient calls and notified of results and providers instructions. Patient verbalizes understanding with no further questions in regards to that. Patient reports that she will be having a right hip replacement with [facility] and she will be needing forms filled out for medical clearance. Patient said they would be faxing forms over and asking if provider would fill them out since she had a visit on 05/24/2022. Patient asking for a call back at [phone] to verify forms were received and if provider is willing to fill them out. Teresa Tapia RN Can you please call the patient and let her know that I reviewed her lab results. A1c was 4.9, no signs of diabetes. Cholesterol was elevated, LDL at 136. I would recommend lifestyle changes at home to help improve this. Try to decrease processed foods in the diet. Increase lean cuts of meat, vegetables, and get some form of exercise. TSH was low which may indicate that the Synthroid dosing is too high. I would like to lower the Synthroid to 75 mcg daily and recheck labs in 6 weeks. Prescription was sent to her pharmacy. Please let me know if she has any questions. Thank you. Galilea Mccoy APRN.CNP The following approved medication requests have been transmitted electronically. Requested Prescriptions Signed Prescriptions Disp Refills levothyroxine (SYNTHROID) 75 mcg tablet 30 tablet 11 Sig: Take 1 tablet by mouth once daily. Take on empty stomach. For Thyroid Authorizing Provider: GALILEA MCCOY APRN.SENIOR ANDROID DEVELOPER documented in this encounter [facility] 05-24-2022 Note HNO ID: [id number] Author: Galilea Mccoy APRN.KARINE Service: ? Author Type: Nurse Practitioner Type: Progress Notes Filed: 05/24/2022 12:36 PM Note Text: This is a 51 year old female who presents today with: Patient presents with: Yearly Exam HISTORY OF PRESENT ILLNESS: Mary Birch is a 51 year old female. Patient presents with: Yearly Exam Here in the office for wellness exam. Diet: Working on eating a well balanced. Exercise: Limited due to hip pain, does stretching. Vision: Due for exam, wears glasses as needed. Dental: Appt tomorrow. Sleep: 7-8 hours per night. Mood: see below. Thyroid: Taking Synthroid 100 mcg daily. Denies any palpitations, or cold/heat intolerances. History of nodules in the past, follows with general surgery. Depression: Taking Prozac 40 mg and Wellbutrin XL 300 mg daily. Denies increased sadness, anxiety, or SI/HI. Dad in February. had a liver transplant last year. Has been having a hard time. Tearful at times. Does not see counselor. Right Hip: Will be having hip replacement in the future with Dr. Santiago. Refers they found scoliosis in the back on xray. Mammogram: Last mammogram 2019, normal. Pap: April 2020, normal, negative HPV. Menses: Colonoscopy: Has never had completed, willing to complete Cologuard at this time. Vaccines: Due for Tdap, denies wanting at this time. 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 Santiago CONTROL NASAL HEMORRHAGE ANTERIOR SIMPLE 1980 FOOT BILATERAL OP SURGERY 1998 plantar fasciitis PAST SURGICAL HISTORY OF D AND C x 3 between 1994 and 1999 THYROIDECTOMY TOTAL/COMPLETE 1999 left side, non cancerous nodule TONSILLECTOMY AND ADENOIDECTOMY ALLERGIES Penicillins and Bee Sting MEDICATIONS Current Outpatient Medications Medication Sig buPROPion XL (WELLBUTRIN XL) 300 mg 24 hr tablet Take 1 tablet by mouth once daily. FLUoxetine (PROZAC) 40 mg capsule Take 1 capsule by mouth once daily. levothyroxine (SYNTHROID) 100 mcg tablet Take 1 tablet by mouth once daily. ZINC ACETATE ORAL Take by mouth. ascorbic acid (VITAMIN C ORAL) Take by mouth. QUERCETIN DIHYDRATE, BULK, MISC MEDICATION, NON-DATABASE Take 25 mg by mouth once daily. CBD oil Cholecalciferol, Vitamin D3, 1,000 unit ORAL Cap Take 3,000 Units by mouth. No current facility-administered medications for this visit. FAMILY HISTORY Problem Relation Age of Onset Diabetes Father insulin Genitourinary () Father kidney failure - dialysis Cervical Cancer Mother Heart Maternal Grandmother arrythmia - pacemaker Osteoporosis Maternal Grandmother Psychiatry Maternal Grandmother depression Stroke Maternal Grandmother None Son None Son None Son None Son None Daughter Social History Tobacco Use Smoking status: Former Years: 4.00 Types: Cigarettes Quit date: 09/18/1993 Years since quittin.6 Smokeless tobacco: Never Tobacco comments: less than 1/2 pack per day Vaping Use Vaping Use: Never used Substance Use Topics Alcohol use: Yes Comment: rare Drug use: No REVIEW OF SYSTEMS GENERAL: No weight loss, malaise or fevers/chills HEENT: Negative for frequent or significant headaches, No changes in hearing or vision. NECK: Negative for lumps, goiter, pain and significant neck swelling RESPIRATORY: Negative for cough, hemoptysis, wheezing, dyspnea or shortness of breath CARDIOVASCULAR: Negative for chest pain, leg swelling, orthopnea, or palpitations GI: No nausea, vomiting, or diarrhea/constipation. No hematochezia/melena. No heartburn or reflux symptoms. : No history of dysuria, frequency or incontinence MUSCULOSKELETAL: Negative for joint pain or swelling. SKIN: Negative for lesions, rash, and itching ENDOCRINE: Negative for cold or heat intolerance, polyuria, polydipsia and goiter NEURO: No history of headaches, syncope, paralysis, seizures or tremors MOOD: Negative for depression, anxiety, or suicidal ideation. EXAM: BP 130/82 Pulse 77 Resp 16 Ht 174 cm (5' 8.5 ) Wt 129.7 kg (286 lb) LMP 05/17/2022 SpO2 98% BMI 42.85 kg/m? PHYSICAL EXAM: General Appearance: Well appearing, alert, in no acute distress, well-hydrated, well nourished. Skin: Skin color, texture, turgor normal, no suspicious rashes or lesions. Head: Normocephalic, no masses, lesions, tenderness or abnormalities. Eyes: Anicteric sclera. Pupils are equally round and reactive to light. Extraocular movements are intact. Ears: External ears normal, canals clear. TMs pearly ashraf. Nose/Sinuses: Angel (more content not included)... [facility] 05-13-2022 Miscellaneous Notes The following approved medication requests have been transmitted electronically. Requested Prescriptions Pending Prescriptions Disp Refills buPROPion XL (WELLBUTRIN XL) 300 mg 24 hr tablet 90 tablet 3 Sig: Take 1 tablet by mouth once daily. FLUoxetine (PROZAC) 40 mg capsule 90 capsule 3 Sig: Take 1 capsule by mouth once daily. Galilea Mccoy APRN.KARINE Patient has been identified by name and date of : Yes Requested Prescriptions Pending Prescriptions Disp Refills buPROPion XL (WELLBUTRIN XL) 300 mg 24 hr tablet 90 tablet 3 Sig: Take 1 tablet by mouth once daily. FLUoxetine (PROZAC) 40 mg capsule 90 capsule 3 Sig: Take 1 capsule by mouth once daily. DIANA-08/18/20 Labs-08/18/20 NOV-05/24/22 RX INSTRUCTIONS: Patient aware RX will be sent to pharmacy. No need to notify patient. Anna Marie Christensen [employer] documented in this encounter [facility] 06-05-2021 Miscellaneous Notes The following approved medication requests have been transmitted electronically. Signed Prescriptions Disp Refills levothyroxine (SYNTHROID) 100 mcg tablet 90 tablet 3 Sig: Take 1 tablet by mouth once daily. GEM: No Authorizing Provider: DORIAN BEST Ma OK to refill as ordered Dorian Best MD Patient has been identified by name and date of : Yes Pending Prescriptions Disp Refills LEVOTHYROXINE 100 MCG TABLET 90 tablet 1 Sig: Take 1 tablet by mouth once daily. GEM: No DIANA-10/27/20 Labs-08/18/20 NOV-none RX INSTRUCTIONS: Patient aware RX will be sent to pharmacy. No need to notify patient. Soheila Collins documented in this encounter [facility] Evaluation + Plan note Future Appointments [facility] documented in this encounter [facility] [facility] Diagnosis Encounter for screening mammogram for breast cancer [facility] Diagnosis Abnormal weight gain Depression, unspecified depression type Obesity, Class II, BMI 35-39.9 Obesity, unspecified [facility]* Diagnosis Hypothyroidism, unspecified type- Primary [facility]* Diagnosis Preoperative clearance- Primary Preoperative examination, unspecified [facility]* Diagnosis Encounter for screening mamm[facility] for [facility] Diagnosis Hypothyroidism, unspecified type- Primary [facility] Diagnosis Lipoma of left upper extremity- Primary [facility] Diagnosis Multinodular goiter (nontoxic)- Primary Nontoxic multinodular goiter [facility]* Diagnosis Pain of left calf- Primary Pain in limb Calf swelling Swelling of limb documented in this encounter [facility] note* Diagnosis Hypothyroidism, unspecified type documented in this encounter [facility] note* Diagnosis Multinodular goiter (nontoxic)- Primary Nontoxic multinodular goiter Lesion of subcutaneous tissue Unspecified disorder of skin and subcutaneous tissue documented in this encounter [facility] note* Diagnosis Depression, unspecified depression type- Primary Hypothyroidism, unspecified type Class 2 obesity without serious comorbidity with body mass index (BMI) of 38.0 to 38.9 in adult, unspecified obesity type Multinodular goiter (nontoxic) Nontoxic multinodular goiter documented in this encounter [facility] note* Diagnosis Elevated LFTs- Primary Other abnormal blood chemistry documented in this encounter [facility] course Narrative No data available for this section [facility] Discharge instructions No data available for this section [facility] Reason for referral (narrative)* Diagnostic Procedure Only (Routine) - Pending Review Specialty Diagnoses / Procedures Referred By Matthieu goss Referred To Contact [facility] Diagnoses Encounter for screening mammogram for breast cancer Procedures VIKTORIYA SCREENING SCREENING MAMMOGRAPHY BI 2-VIEW BREAST INC Dorian Rodrigez MD [address] [place] [address] [place] [address] Referral ID Status Reason Start Date Expiration Date Visits Requested Visits Authorized [id number] Pending Review Auto-Generat ed Referral 08/05/2021 09/04/2022 1 1 [facility] for referral (narrative)* Diagnostic Procedure Only (Routine) - Authorized Specialty Diagnoses / Procedures Referred By Matthieu goss Referred To Contact [facility] Diagnoses Encounter for screening mammogram for breast cancer Procedures VIKTORIYA SCREENING SCREENING MAMMOGRAPHY BI 2-VIEW BREAST INC Dorian Rodrigez MD [address] [place] [address] [facility] [address] [place] [address] Referral ID Status Reason Start Date Expiration Date Visits Requested Visits Authorized [id number] Authorized Auto-Generat ed Referral 07/07/2022 08/06/2023 1 1 [facility] for referral (narrative)* Diagnostic Procedure Only (Routine) - Pending Review Specialty Diagnoses / Procedures Referred By Contac t Referred To Contact [facility] Diagnoses Multinodular goiter (nontoxic) Procedures US THYROID/PARATHYROID US SOFT TISSUE HEAD & NECK REAL TIME IMGE Dorian Mclean MD [address] [place] [address] [place] [address] Referral ID Status Reason Start Date Expiration Date Visits Requested Visits Authorized [id number] Pending Review Auto-Generat ed Referral 09/24/2022 10/24/2023 1 1 [facility] for referral (narrative)* Diagnostic Procedure Only (Urgent) - Closed Specialty Diagnoses / Procedures Referred By Contac t Referred To Contact [facility] Diagnoses Pain of left calf Calf swelling Procedures US DVT LOWER LEFT DUP-SCAN XTR VEINS UNILATERAL/LIMITED STUDY Galilea Mccoy APRN.SENIOR ANDROID DEVELOPER [address] [place] [address] [place] [address] Referral ID Status Reason Start Date Expiration Date V isits Requested Visits Authorized [id number] Closed Auto-Generate d Referral 09/29/2022 10/29/2023 1 1 * Outpatient Procedure (Urgent) - Closed Specialty Diagnoses / Procedures Referred By Contac t Referred [facility] Diagnoses Pain of left calf Calf swelling Procedures US LEG VEIN DVT UNL VAS LAB DUP-SCAN XTR VEINS UNILATERAL/LIMITED STUDY Galilea Mccoy APRN.CNP [address] [place] [address] [facility] [place] [address] [place] [address] Referral ID Status Reason Start Date Expiration Date V isits Requested Visits Authorized [id number] Closed Auto-Generate d Referral 09/29/2022 02/06/2023 1 1 [facility] Diagnostic Procedure Only (Urgent) - Closed Specialty Diagnoses / Procedures Referred By Contac t Referred To Contact [facility] Diagnoses Elevated LFTs Procedures US ABD RIGHT UPPER QUADRANT US ABDOMINAL REAL TIME W/IMAGE LIMITED Galilea Mccoy APRN.SENIOR ANDROID DEVELOPER [address] [place] [address] [place] [address] Referral ID Status Reason Start Date Expiration Date V isits Requested Visits Authorized [id number] Closed Auto-Generate d Referral OON/Self Pay Override 03/24/2023 04/22/2024 1 1 [facility] Summary Purpose Family History No Family History Records FoundNo Family History Records FoundNo Family History Records Found Advance Directives No Advanced Directives Records FoundNo Advanced Directives Records FoundNo Advanced Directives Records Found Reason for Referral Specialty Diagnoses / Procedures Referred By Contac t Referred To Contact Diagnoses Class 2 obesity without serious comorbidity with body mass index (BMI) of 38.0 to 38.9 in adult, unspecified obesity type Procedures CONSULT [facility] OFFICE/OUTPATIENT NEW HIGH MDM 60 MINUTES Galilea Mccoy APRN.SENIOR ANDROID DEVELOPER [address] [place] [address] Referral ID Status Reason Start Date Expiration Date Visits Requested Visits Authorized [id number] Pending Review PCP Requested Referral 03/23/2023 03/22/2024 1 1 Specialty Diagnoses / Procedures Referred By Contac t Referred To Contact General Surgery Diagnoses Lipoma of left upper extremity Procedures CONSULT TO GENERAL SURGERY OFFICE/OUTPATIENT NEW HIGH MDM 60-74 MINUTES Galilea Mccoy APRN.SENIOR ANDROID DEVELOPER [address] [place] [address] Referral ID Status Reason Start Date Expiration Date Visits Requested Visits Authorized [id number] Pending Review PCP Requested Referral 09/16/2022 09/16/2023 1 1 Additional Source Comments Source Comments (unrecognize d section and content) In the event this informatio n is protected by the Federal Confidentiality of Alcohol and Drug Abuse Patient Records regulations: The Federal rules restrict any use of the information to criminally investigate or prosecute any alcohol or drug abuse patient.[facility] the event this information is protected by the Federal Confidentiality of Alcohol and Drug Abuse Patient Records regulations: The Federal rules restrict any use of the information to criminally investigate or prosecute any alcohol or drug abuse patient.[facility] the event this information is protected by the Federal Confidentiality of Alcohol and Drug Abuse Patient Records regulations: The Federal rules restrict any use of the information to criminally investigate or prosecute any alcohol or drug abuse patient.[facility] the event this information is protected by the Federal Confidentiality of Alcohol and Drug Abuse Patient Records regulations: The Federal rules restrict any use of the information to criminally investigate or prosecute any alcohol or drug abuse patient.[facility] the event this information is protected by the Federal Confidentiality of Alcohol and Drug Abuse Patient Records regulations: The Federal rules restrict any use of the information to criminally investigate or prosecute any alcohol or drug abuse patient.[facility] the event this information is protected by the Federal Confidentiality of Alcohol and Drug Abuse Patient Records regulations: The Federal rules restrict any use of the information to criminally investigate or prosecute any alcohol or drug abuse patient.[facility] the event this information is protected by the Federal Confidentiality of Alcohol and Drug Abuse Patient Records regulations: The Federal rules restrict any use of the information to criminally investigate or prosecute any alcohol or drug abuse patient.[facility] the event this information is protected by the Federal Confidentiality of Alcohol and Drug Abuse Patient Records regulations: The Federal rules restrict any use of the information to criminally investigate or prosecute any alcohol or drug abuse patient.[facility] the event this information is protected by the Federal Confidentiality of Alcohol and Drug Abuse Patient Records regulations: The Federal rules restrict any use of the information to criminally investigate or prosecute any alcohol or drug abuse patient.[facility] the event this information is protected by the Federal Confidentiality of Alcohol and Drug Abuse Patient Records regulations: The Federal rules restrict any use of the information to criminally investigate or prosecute any alcohol or drug abuse patient.[facility] the event this information is protected by the Federal Confidentiality of Alcohol and Drug Abuse Patient Records regulations: The Federal rules restrict any use of the information to criminally investigate or prosecute any alcohol or drug abuse patient.[facility] the event this information is protected by the Federal Confidentiality of Alcohol and Drug Abuse Patient Records regulations: The Federal rules restrict any use of the information to criminally investigate or prosecute any alcohol or drug abuse patient.[facility] the event this information is protected by the Federal Confidentiality of Alcohol and Drug Abuse Patient Records regulations: The Federal rules restrict any use of the information to criminally investigate or prosecute any alcohol or drug abuse patient.[facility] the event this information is protected by the Federal Confidentiality of Alcohol and Drug Abuse Patient Records regulations: The Federal rules restrict any use of the information to criminally investigate or prosecute any alcohol or drug abuse patient.[facility] the event this information is protected by the Federal Confidentiality of Alcohol and Drug Abuse Patient Records regulations: The Federal rules restrict any use of the information to criminally investigate or prosecute any alcohol or drug abuse patient.[facility] the event this information is protected by the Federal Confidentiality of Alcohol and Drug Abuse Patient Records regulations: The Federal rules restrict any use of the information to criminally investigate or prosecute any alcohol or drug abuse patient.[facility] the event this information is protected by the Federal Confidentiality of Alcohol and Drug Abuse Patient Records regulations: The Federal rules restrict any use of the information to criminally investigate or prosecute any alcohol or drug abuse patient.[facility] Reason for Visit (unrecogniz ed section and content) Specialty Diagnoses / Procedures Referred By Matthieu goss Referred To Contact [facility] Diagnoses 1505 override Procedures 1505 override Dorian Best MD [address] [place] [address] Card [facility] [address] [place] [address] Referral ID Status Reason Start Date Expiration Date Visits Requested Visits Authorized [id number] Pending Review OON/Self Pay Override 09/28/2022 03/27/2023 1 1 Reason Onset Date Comments Refill Request 06/05/2021 Reason Comments Refill Request Reason Comments Results Labs Reason Comments Orders Lab Reason Comments pre op clearance form [facility] Reason Comments Orders Labs Reason Comments Acute Visit lump on back of left shoulder Reason Comments Orders Ultrasound Reason Comments Acute Visit eleanor horse x 3 we eks Reason Comments Consult Lipoma, goiter. Specialty Diagnoses / Procedures Referred By Matthieu t Referred To Contact GENERAL SURGERY Diagnoses gens surg consult Procedures gens surg, consult Dorian Best MD [address] [place] [address] [facility] [address] [place] [address] Referral ID Status Reason Start Date Expiration Date Visits Requested Visits Authorized [id number] Pending Review OON/Self Pay Override 09/16/2022 03/15/2023 1 1 Reason Comments Results Labs Orders Care Teams (unrecognized sec tion and content) Slip Laster Relationship Specialty Start Date End Date Dorian Best MD [address] [place] [address] PCP - General Family Practice 02/18/10 Slip Laster Relationship Specialty Start Date End Date Dorian Best MD [address] [place] [address] PCP - General Family Medicine 02/18/10 Slip Laster Relationship Specialty Start Date End Date Dorian Best MD [address] [place] [address] PCP - General Family Medicine 02/18/10 Slip Laster Relationship Specialty Start Date End Date Dorian Best MD [address] [place] [address] PCP - General Family Medicine 02/18/10 Slip Laster Relationship Specialty Start Date End Date Dorian Best MD [address] [place] [address] PCP - General Family Medicine 02/18/10 Slip Laster Relationship Specialty Start Date End Date Dorian Best MD [address] [place] [address] PCP - General Family Medicine 02/18/10 Slip Laster Relationship Specialty Start Date End Date Dorian Best MD [address] [place] [address] PCP - General Family Medicine 02/18/10 Slip Laster Relationship Specialty Start Date End Date Dorian Best MD [address] [facility] [place] [address] PCP - General Family Medicine 02/18/10 Slip Laster Relationship Specialty Start Date End Date Dorian Best MD [address] [place] [address] PCP - General Family Medicine 02/18/10 Slip Laster Relationship Specialty Start Date End Date Dorian Best MD [address] [place] [address] PCP - General Family Medicine 02/18/10 Slip Laster Relationship Specialty Start Date End Date Dorian Best MD [address] [place] [address] PCP - General Family Medicine 02/18/10 Slip Laster Relationship Specialty Start Date End Date Dorian Best MD [address] [place] [address] PCP - General Family Medicine 02/18/10 Slip Laster Relationship Specialty Start Date End Date Dorian Best MD [address] [facility] [place] [address] PCP - General Family Medicine 02/18/10 Slip Laster Relationship Specialty Start Date End Date Dorian Best MD [address] [facility] [place] [address] PCP - General Family Medicine 02/18/10 Slip Laster Relationship Specialty Start Date End Date Dorian Best MD [address] [place] [address] PCP - General Family Medicine 02/18/10 Slip Laster Relationship Specialty Start Date End Date Dorian Best MD [address] [place], [place] [address] PCP - General Family Medicine 02/18/10 INFORMATION SOURCE (unrecogn ized section and content) DATE CREATED AUTHOR AUTHOR'S ORGANIZ ATION 08/20/2022 [facility] DATE CREATED AUTHOR AUTHOR'S ORGANIZ ATION 03/18/2023 [facility] FOR RECORDS PERTAINING TO PATIENTS WHO ARE OR HAVE BEEN ENROLLED IN A CHEMICAL DEPENDENCY/SUBSTANCEABUSE PROGRAM, SOME INFORMATION MAY BE OMITTED. This clinical summary was aggregated from multiple sources. Caution should be exercised in using it in the provision of clinical care. This summary normalizes information from multiple sources, and as a consequence, information in this document may materially change the coding, format and clinical context of patient data. In addition, data may be omitted in some cases. CLINICAL DECISIONS SHOULD BE BASED ON THE PRIMARY CLINICAL RECORDS. [email or web address] [facility]. provides no warranty or guarantee of the accuracy or completeness of information in this document.
[2023-03-24 23:46] LABS: Lipase 44 U/L (13-75)
--- NOTE | 2023-03-24 23:59 | CON.PCM.GI_ITS ---
HPI Consult Data Date of Consult: 03/24/23 HPI Narrative Reason for Consultation: Choledocholithiasis HPI Narrative: MARY BIRCH, is a 52 F with a past medical history of hypothyroidism, depression, obesity; with BMI of 39.3 this admission and history of gallstones with a known history of intermittent gallbladder colic with elevated liver enzymes previously evaluated at the [facility] with an ultrasound done earlier on 03/24/2023 with pending final results who presents to [facility] ER complaining of abdominal pain with nausea and vomiting. Mrs. Birch reports her symptoms began several days prior to admission with increasing frequent upper abdominal pain that was ~7-10/10, epigastric, cramping with nausea and bilious emesis x 4 episodes. She denies a history of recent trauma, EtOH abuse, APAP abuse, history of hepatitis, history of abdominal surgeries, family history of gallbladder/liver disease or other recent illness but she does admit to similar episodes previously attributed to gallbladder att acks . She admits to occasional nausea with bilious emesis after having two rich restaurant meals for [employer] celebration but she denies related fever, chills, dysuria, jaundice or liver disease. She has additional concern because her is approximately 500 days out from his liver transplant at the [facility] and he is doing well. In the ER her CT scan of the abdomen and pelvis revealed multiple gallstones but no dilated bile ducts and the general surgeon on-call reviewed her recent imaging from the [facility] and she thought there could be another reason for elevated LFT's and hyperbilirubinemia. MRCP displayed there is hepatomegaly with diffuse hepatic enlargement. There are multiple gallstones. There is 0.4 cm stone in the common bile duct, series 11 image 23. The common bile duct measures 0.7 cm. There is mild splenomegaly. Normal pancreas. [facility] Medical History Depression Hypothyroidism Home Medications Cbd Oil 3,020 mg sublingual BID PAIN 08/21/18 [History Last Taken 03/23/23] bupropion HCl 300 mg 24 hr tablet, extended release 300 mg PO DAILY DEPRESSION 08/21/18 [History Last Taken 03/23/23] cholecalciferol (vitamin D3) 25 mcg (1,000 unit) tablet 1,000 unit PO DAILY SUPPLEMENT 08/21/18 [History Last Taken 03/23/23] fluoxetine 20 mg capsule 40 mg PO DAILY DEPRESSION 08/21/18 [History Last Taken 03/23/23] meloxicam 15 mg tablet 15 mg PO DAILY #30 tabs 05/07/22 [Rx Last Taken 03/23/23] levothyroxine 75 mcg tablet 75 mcg PO DAILY 03/24/23 [History Last Taken 03/23/23] Allergy/AdvReac Type Severity Reaction Status Date / Time Penicillins Allergy Hives Verified 03/24/23 20:30 Social History Smoking Status: Former smoker ROS Constitutional Constitutional: Reports anorexia Eyes Eyes: Denies blurry vision ENT HEENT: Denies dysphagia Cardiovascular Cardiovascular: Denies palpitations Respiratory/Chest Respiratory/Chest: Denies cough Gastrointestinal Gastrointestinal: Reports abdominal pain, bloating, nausea and vomiting; Denies constipation or diarrhea Genitourinary Genitourinary: Denies dysuria Musculoskeletal Musculoskeletal: Denies joint swelling Integumentary Integumentary: Denies jaundice or rash Neurologic Neurologic: Denies dizziness Psychiatric Psychiatric: Denies anxiety or depression Hematologic/Lymphatic Hematologic/Lymphatic: Denies easy bleeding or easy bruising Physical Exam Const alert and no apparent distress HEENT head/scalp atraumatic and moist oral mucous membranes Lab / Micro Data 03/25/23 05:17 03/25/23 05:17 Labs: Laboratory Results - last 24 hr 03/24/23 21:05: WBC 7.4, RBC 5.02, Hgb 14.3, Hct 44.0, MCV 87.6, MCH 28.5, MCHC 32.5, RDW Std Deviation 44.1 H, RDW Coeff of Janna 13.9, Plt Count 325, MPV 10.9, Immature Gran % (Auto) 0.400, Neut % (Auto) 68.4, Lymph % (Auto) 18.0 L, [place] % (Auto) 7.8, Eos % (Auto) 4.2, Baso % (Auto) 1.2 H, Absolute Neuts (auto) 5.0, Absolute Lymphs (auto) 1.32, Nucleated RBC % 0, Sodium 142, Potassium 3.7, Chloride 107, Carbon Dioxide 30.0, Anion Gap 5, BUN 12, Creatinine 0.86, Est GFR (MDRD) Af Amer 88, Est GFR (MDRD) Non-Af 73, BUN/Creatinine Ratio 13.9, Glucose 97, Calcium 9.2, Total Bilirubin 2.90 H, AST 693 H, ALT 870 H, Alkaline Phosphatase 220 H, Total Protein 7.3, Albumin 3.8, Globulin 3.5, Albumin/Globulin Ratio 1.1, Lipase 44 03/24/23 21:05: Lipase 44 03/24/23 23:40: Acetaminophen < 10.0 L, Ethyl Alcohol 4.0 03/25/23 05:17: WBC 5.7, RBC 4.44, Hgb 12.9, Hct 39.2, MCV 88.3, MCH 29.1, MCHC 32.9, RDW Std Deviation 45.0 H, RDW Coeff of Janna 14.0, Plt Count 277, MPV 10.8, Immature Gran % (Auto) 0.300, Neut % (Auto) 59.8, Lymph % (Auto) 26.6, [place] % (Auto) 7.2, Eos % (Auto) 5.1 H, Baso % (Auto) 1.0, Absolute Neuts (auto) 3.4, Absolute Lymphs (auto) 1.52, Nucleated RBC % 0, Sodium 141, Potassium 3.8, Chloride 110 H, Carbon Dioxide 28.0, Anion Gap 3 L, BUN 9, Creatinine 0.67, Estim Creat Clear Calc 143.55, Est GFR (MDRD) Af Amer 118, Est GFR (MDRD) Non-Af 97, BUN/Creatinine Ratio 13.4, Glucose 86, Hemoglobin A1c 5.3, Calcium 8.1 L, Phosphorus 3.2, Magnesium 2.1, Iron 103, TIBC 255, Iron Saturation 40.4, Total Bilirubin 2.30 H, Direct Bilirubin 1.27 H, AST 575 H, ALT 762 H, Alkaline Phosphatase 193 H, Total Protein 6.4, Albumin 3.3, Globulin 3.1, Albumin/Globulin Ratio 1.1, Triglycerides 74, Cholesterol 195, LDL Cholesterol 112, VLDL Cholesterol 15, HDL Cholesterol 68, TSH 0.65 03/25/23 14:15: Urine Test Negative Imaging Radiology Impression Abdomen/Pelvis CT 03/24/23 21:40 IMPRESSION: 1. Cholelithiasis but no acute cholecystitis. 2. No other acute or inflammatory disease or bowel obstruction. 3. Ancillary findings as above. Electronically Signed: Alfredo Mallory MD at 23:08 EST , MRCP 03/25/23 08:49 IMPRESSION: Cholelithiasis with choledocholithiasis and mild biliary dilatation. Hepatosplenomegaly. Small hiatal hernia. Electronically Signed: David Villa MD at 11:10 EST , Assessment & Plan Assessment/Plan (1) Hyperbilirubinemia: (2) Elevated liver enzymes: (3) Gallstones: (4) Gallbladder colic: (5) Obesity: QUALIFIERS: Obesity type: unspecified obesity type Obesity classification: adult class 2 (BMI 35 - 39.9) Serious obesity comorbidity presence: with serious comorbidity Body mass index: BMI 39.0-39.9 Qualified Code(s): E66.01 - Morbid (severe) obesity due to excess calories; Z68.39 - Body mass index [BMI] 39.0-39.9, adult (6) Abdominal pain: QUALIFIERS: Abdominal location: epigastric Qualified Code(s): R10.13 - Epigastric pain PLAN: Plan 57-year-old with no specific past medical history for mild hypothyroidism presents with worsening right upper quadrant pain and discovered to have jaundice along with elevated liver function tests and liver enzymes. Hyperbilirubinemia with elevated LFT's in the setting of known gallstones and previously mildly elevated LFT's previously evaluated at the [facility] due to suspected Gallbladder Colic - Admit to general medical floor. Acute hepatitis profile ordered by the ER physician with results pending at this time. The differential diagnosis does include choledocholithiasis in the setting of fatty liver disease which was confirmed with MRCP. She will need to undergo ERCP. she was explained alternatives, risk, benefits including outstanding bleeding, infection, sepsis, post ERCP pancreatitis and she elected to have ERCP. She will have an ASA of 3. . Charges/Coding Visit Charges Inpatient E&M: 46934 Init Hosp L3
[2023-03-25] VITALS (10 sets, daily range): BP systolic 103–142; BP diastolic 54–75; PULSE 59–77; RESP 16–18; TEMP 36.4–36.9; O2SAT 90–100; BMI 39.3; BMI 39.4
[2023-03-25] MEDS: 0.9% Normal Saline (1000mL) 1,000 ML 150 ML IV ×3 (00:24→17:58)
[2023-03-25] MEDS: 0.9% Saline Lock 10 ML Syringe IV ×3 (00:24→22:14)
[2023-03-25 00:26] LABS: Acetaminophen (Tylenol) Level < 10.0 ug/mL (10.0-30.0)
[2023-03-25 05:52] LABS: Absolute Lymphocyte Count 1.52 X10^3/uL (0.83-4.51); Absolute Neutrophil Count 3.4 X10^3/uL (2.0-7.7); Basophil# 0.06 X10^3/uL; Eosinophil# 0.29 X10^3/uL; Eosinophils% 5.1 % (0-5); Hematocrit 39.2 % (37-47); Hemoglobin 12.9 g/dL (12.0-15.0); Lymphocyte # 1.52 X10^3/ul (0.83-4.51); Lymphocyte % 26.6 % (19-41); Mean Corp Hgb Conc 32.9 g/dL (32-36); Mean Corpuscular Hgb 29.1 pg (27.0-32.0); Mean Corpuscular Volume 88.3 fL (81-99); Mean Platelet Vol. 10.8 fl (6.2-12.0); Monocyte# 0.41 X10^3/uL; Monocyte% 7.2 % (0-10); NRBC Flagged by Analyzer 0 % (0-5); Neutrophil # 3.42 X10^3/uL (2.7-7.7); Neutrophil % 59.8 % (47-70); Platelet Count 277 K/mm3 (150-450); Red Blood Count 4.44 M/mm3 (4.2-5.4); White Blood Count 5.7 K/mm3 (4.4-11.0)
[2023-03-25 06:28] LABS: Cholesterol 195 mg/dL (200); High Density Lipoprotein 68 mg/dL; Iron 103 ug/dL (50-170); Iron Binding Capacity,Total 255 ug/dL (250-450); PERCENT IRON SATURATION 40.4 % (15.0-55.0); Triglycerides 74 mg/dL; Very Low Density Lipoprotein 15 mg/dL (5-40)
[2023-03-25 06:29] LABS: ALB/GLOB Ratio 1.1 RATIO (0.9-2.4); AST(SGOT) 575 U/L (15-37); Alanine Aminotransfer ALT/SGPT 762 U/L (13-56); Albumin, Serum 3.3 g/dL (3.2-5.0); Alkaline Phosphatase 193 U/L (45-117); Anion Gap 3 (5-15); BUN 9 mg/dL (7-18); BUN/Creat Ratio 13.4 RATIO (10-20); Calcium,Total 8.1 mg/dL (8.5-10.1); Chloride 110 mmol/L (98-107); Creatinine, Serum 0.67 mg/dL (0.55-1.02); EST Glomerular Filtration Rate 97 mL/min (>60); Est Glom Filt Rate - Afr Amer 118 mL/min (>60); Estimated Creatinine Clearance 143.55 ml/min; Globulin 3.1 g/dL (2.2-4.2); Glucose 86 mg/dL (74-106); Magnesium 2.1 mg/dL (1.6-2.6); Phosphorus 3.2 mg/dL (2.5-4.9); Potassium 3.8 mmol/L (3.5-5.1); Protein, Total 6.4 g/dL (6.4-8.2); Sodium Level 141 mmol/L (136-145); Thyroid Stim Hormone (TSH) 0.65 uIU/mL (0.358-3.74)
[2023-03-25] MEDS: Levothyroxine 75 MCG Tablet PO (06:36)
[2023-03-25] MEDS: Pantoprazole Sodium 40 MG in 0.9% Normal Saline (100mL MB+) 100 ML 330 MG IV (06:57)
[2023-03-25 07:25] LABS: Bilirubin, Direct 1.27 mg/dL (0.00-0.30)
--- NOTE | 2023-03-25 07:40 | EX.PCM.CON.S ---
Assessment & Plan Assessment/Plan (1) Gallstones: (2) Elevated liver enzymes: (3) Abdominal pain: QUALIFIERS: Abdominal location: epigastric Qualified Code(s): R10.13 - Epigastric pain PLAN: Plan Will plan to get patient's ultrasound from yesterday digitally transferred from [facility] as well as her lab results. Discussed with patient that her history is not completely straightforward as her AST and ALT are pretty high typically for disease due to the gallbladder however she does have the recent history of discomfort after she eats nothing like when she initially came into the ER--hepatitis panel is pending. Also with GB and or choledocholithiasis- I would expect to see elevated WBC or shift. Dr. Antoni fraire GI also consulted, will discuss with him as well-- initially hospitalist did order HIDA scan unsure if that would give us a result we really need maybe an MRCP would be better. Will plan to discuss with Dr. Corrales first. Addendum: d/w Dr. Corrales --will cancel HIDA and check MRCP Second addendum: MRCP showed a single stone in the common bile duct and gallbladder is filled with small and medium sized stones. No inflammation seen around the gallbladder. Discussed with patient and her via the phone. Patient will undergo an ERCP with Dr. Corrales today and plan for laparoscopic cholecystectomy tomorrow at 8 AM. Reviewed the anatomy with the patient and discussed the procedure: laparoscopic cholecystectomy with cholangiograms, possible open. Review risks including but not limited to bleeding, infection, hernia, bile leak, retained gallstones requiring another procedure ERCP- Endoscopic Retrograde Cholangiopancreatography, injury to another organ (bile ducts, common bile duct, small bowel, etc.) may require transfer to tertiary care facility and conversion to an open procedure. All questions were answered. Varsha Lenz M.D. Pager: [phone] [facility] [address] [place] [address], [address] [place] [address] Office: [phone] HPI Consult Data Date of Consult: 03/25/23 HPI Narrative Reason for Consultation: Gallstones elevated liver functions HPI Narrative: MARY BARNETT, is a 52 F who presents to the ER due to epigastric pain but an hour and a half after eating some chicken nuggets and crackers and cheese. Patient also had nausea and vomiting. On Tuesday patient did go to her PCP to talk about changing some of her medications and did have lab work done at that time which did show elevated liver function test within normal bilirubin AST and ALT 700/600 and alk phos was 157. Patient denies any abdominal pain at that time. But does give a history of may be some epigastric discomfort that was very brief earlier in the week. Patient was called back to have an ultrasound done as well as additional labs done by her PCP. Ultrasound showed cholelithiasis normal wall fatty liver, dilated common bile duct and repeat LFTs showed decrease in ALT and ALT still in the 500/600 with the total bili being 1 from 0.6 and direct bili was 0.2 and alk phos was 198. white blood cell count was within normal limits no shift-- yesterday and at the ER and today. Today pt denies any abdominal pain, TB 2.9->2.3 (1.27 direct), AST 693->575, ALT 870->762, alk phos 220->193. Pt had a liver transplant at [facility] just over 1.5 years ago, pt denies issues with pain after eating prior to the recent issues, denies GERD symptoms. [facility] Medical History Depression Hypothyroidism Home Medications Cbd Oil 3,020 mg sublingual BID PAIN 08/21/18 [History Last Taken 03/23/23] bupropion HCl 300 mg 24 hr tablet, extended release 300 mg PO DAILY DEPRESSION 08/21/18 [History Last Taken 03/23/23] cholecalciferol (vitamin D3) 25 mcg (1,000 unit) tablet 1,000 unit PO DAILY SUPPLEMENT 08/21/18 [History Last Taken 03/23/23] fluoxetine 20 mg capsule 40 mg PO DAILY DEPRESSION 08/21/18 [History Last Taken 03/23/23] meloxicam 15 mg tablet 15 mg PO DAILY #30 tabs 05/07/22 [Rx Last Taken 03/23/23] levothyroxine 75 mcg tablet 75 mcg PO DAILY 03/24/23 [History Last Taken 03/23/23] Allergy/AdvReac Type Severity Reaction Status Date / Time Penicillins Allergy Hives Verified 03/24/23 20:30 Social History Smoking Status: Former smoker ROS Constitutional Constitutional: Reports anorexia Eyes Eyes: Denies blurry vision ENT HEENT: Denies dysphagia Cardiovascular Cardiovascular: Denies palpitations Respiratory/Chest Respiratory/Chest: Denies cough Gastrointestinal Gastrointestinal: Reports abdominal pain, bloating, nausea and vomiting; Denies constipation or diarrhea Genitourinary Genitourinary: Denies dysuria Musculoskeletal Musculoskeletal: Denies joint swelling Integumentary Integumentary: Denies jaundice or rash Neurologic Neurologic: Denies dizziness Psychiatric Psychiatric: Denies anxiety or depression Hematologic/Lymphatic Hematologic/Lymphatic: Denies easy bleeding or easy bruising Physical Exam Const alert, oriented x3 and no apparent distress HEENT normocephalic and head/scalp atraumatic Resp normal respiratory effort Cardio regular rate GI soft to palpation; Negative for non-distended GI Narrative: minimal epigastric pain with deep palpation, no PS Palpation: Negative for guarding Extremity no clubbing, cyanosis or edema Skin no rashes or lesions noted Neuro CN's II-XII intact bilaterally Psych mental status grossly normal Lab / Micro Data 03/25/23 05:17 03/25/23 05:17 Labs: Laboratory Results - last 24 hr 03/24/23 21:05: WBC 7.4, RBC 5.02, Hgb 14.3, Hct 44.0, MCV 87.6, MCH 28.5, MCHC 32.5, RDW Std Deviation 44.1 H, RDW Coeff of Janna 13.9, Plt Count 325, MPV 10.9, Immature Gran % (Auto) 0.400, Neut % (Auto) 68.4, Lymph % (Auto) 18.0 L, [place] % (Auto) 7.8, Eos % (Auto) 4.2, Baso % (Auto) 1.2 H, Absolute Neuts (auto) 5.0, Absolute Lymphs (auto) 1.32, Nucleated RBC % 0, Sodium 142, Potassium 3.7, Chloride 107, Carbon Dioxide 30.0, Anion Gap 5, BUN 12, Creatinine 0.86, Est GFR (MDRD) Af Amer 88, Est GFR (MDRD) Non-Af 73, BUN/Creatinine Ratio 13.9, Glucose 97, Calcium 9.2, Total Bilirubin 2.90 H, AST 693 H, ALT 870 H, Alkaline Phosphatase 220 H, Total Protein 7.3, Albumin 3.8, Globulin 3.5, Albumin/Globulin Ratio 1.1, Lipase 44 03/24/23 21:05: Lipase 44 03/24/23 23:40: Acetaminophen < 10.0 L, Ethyl Alcohol 4.0 03/25/23 05:17: WBC 5.7, RBC 4.44, Hgb 12.9, Hct 39.2, MCV 88.3, MCH 29.1, MCHC 32.9, RDW Std Deviation 45.0 H, RDW Coeff of Janna 14.0, Plt Count 277, MPV 10.8, Immature Gran % (Auto) 0.300, Neut % (Auto) 59.8, Lymph % (Auto) 26.6, [place] % (Auto) 7.2, Eos % (Auto) 5.1 H, Baso % (Auto) 1.0, Absolute Neuts (auto) 3.4, Absolute Lymphs (auto) 1.52, Nucleated RBC % 0, Sodium 141, Potassium 3.8, Chloride 110 H, Carbon Dioxide 28.0, Anion Gap 3 L, BUN 9, Creatinine 0.67, Estim Creat Clear Calc 143.55, Est GFR (MDRD) Af Amer 118, Est GFR (MDRD) Non-Af 97, BUN/Creatinine Ratio 13.4, Glucose 86, Calcium 8.1 L, Phosphorus 3.2, Magnesium 2.1, Iron 103, TIBC 255, Iron Saturation 40.4, Total Bilirubin 2.30 H, Direct Bilirubin 1.27 H, AST 575 H, ALT 762 H, Alkaline Phosphatase 193 H, Total Protein 6.4, Albumin 3.3, Globulin 3.1, Albumin/Globulin Ratio 1.1, Triglycerides 74, Cholesterol 195, LDL Cholesterol 112, VLDL Cholesterol 15, HDL Cholesterol 68, TSH 0.65 Imaging Radiology Impression Abdomen/Pelvis CT 03/24/23 21:40 IMPRESSION: 1. Cholelithiasis but no acute cholecystitis. 2. No other acute or inflammatory disease or bowel obstruction. 3. Ancillary findings as above. Electronically Signed: Alfredo Mallory MD at 23:08 EST , Charges/Coding Visit Charges Inpatient E&M: 77661 Init Hosp L3
[2023-03-25 07:53] LABS: Hemoglobin A1c 5.3 % (3.8-5.6)
--- NOTE | 2023-03-25 07:54 | PCM.PN.HOSP ---
Reason for Visit Reason for Visit: Diagnoses Morbid (severe) obesity due to excess calories (03/24/23) Other disorders of bilirubin metabolism (03/24/23) Calculus of gallbladder without cholecystitis without obstruction (03/24/23) Epigastric pain (03/24/23) Unspecified abdominal pain (03/24/23) Abnormal levels of other serum enzymes (03/24/23) Body mass index [BMI] 39.0-39.9, adult (03/24/23) Subjective Subjective Feeling well. Has a headache. Objective Data Objective Data Vital Signs: Vital Signs Temp Pulse Resp BP Pulse Ox O2 Del Method 36.5 C L 61 18 112/54 L 95 Room Air 03/25/23 06:16 03/25/23 06:16 03/25/23 06:16 03/25/23 06:16 03/25/23 06:16 03/25/23 07:51 Oxygen Delivery Method Room Air Weight: 127.9 kg Body Mass Index (BMI) 39.4 Intake & Output: Intake and Output for Last 24 Hours 03/23/23 03/24/23 03/25/23 23:59 23:59 23:59 Intake Total 1000 / 1000 1040 / 1040 Balance 1000 / 1000 1040 / 1040 Lab / Micro Data 03/25/23 05:17 03/25/23 05:17 Labs: Laboratory Results - last 24 hr 03/24/23 21:05: WBC 7.4, RBC 5.02, Hgb 14.3, Hct 44.0, MCV 87.6, MCH 28.5, MCHC 32.5, RDW Std Deviation 44.1 H, RDW Coeff of Janna 13.9, Plt Count 325, MPV 10.9, Immature Gran % (Auto) 0.400, Neut % (Auto) 68.4, Lymph % (Auto) 18.0 L, [place] % (Auto) 7.8, Eos % (Auto) 4.2, Baso % (Auto) 1.2 H, Absolute Neuts (auto) 5.0, Absolute Lymphs (auto) 1.32, Nucleated RBC % 0, Sodium 142, Potassium 3.7, Chloride 107, Carbon Dioxide 30.0, Anion Gap 5, BUN 12, Creatinine 0.86, Est GFR (MDRD) Af Amer 88, Est GFR (MDRD) Non-Af 73, BUN/Creatinine Ratio 13.9, Glucose 97, Calcium 9.2, Total Bilirubin 2.90 H, AST 693 H, ALT 870 H, Alkaline Phosphatase 220 H, Total Protein 7.3, Albumin 3.8, Globulin 3.5, Albumin/Globulin Ratio 1.1, Lipase 44 03/24/23 21:05: Lipase 44 03/24/23 23:40: Acetaminophen < 10.0 L, Ethyl Alcohol 4.0 03/25/23 05:17: WBC 5.7, RBC 4.44, Hgb 12.9, Hct 39.2, MCV 88.3, MCH 29.1, MCHC 32.9, RDW Std Deviation 45.0 H, RDW Coeff of Janna 14.0, Plt Count 277, MPV 10.8, Immature Gran % (Auto) 0.300, Neut % (Auto) 59.8, Lymph % (Auto) 26.6, [place] % (Auto) 7.2, Eos % (Auto) 5.1 H, Baso % (Auto) 1.0, Absolute Neuts (auto) 3.4, Absolute Lymphs (auto) 1.52, Nucleated RBC % 0, Sodium 141, Potassium 3.8, Chloride 110 H, Carbon Dioxide 28.0, Anion Gap 3 L, BUN 9, Creatinine 0.67, Estim Creat Clear Calc 143.55, Est GFR (MDRD) Af Amer 118, Est GFR (MDRD) Non-Af 97, BUN/Creatinine Ratio 13.4, Glucose 86, Hemoglobin A1c 5.3, Calcium 8.1 L, Phosphorus 3.2, Magnesium 2.1, Iron 103, TIBC 255, Iron Saturation 40.4, Total Bilirubin 2.30 H, Direct Bilirubin 1.27 H, AST 575 H, ALT 762 H, Alkaline Phosphatase 193 H, Total Protein 6.4, Albumin 3.3, Globulin 3.1, Albumin/Globulin Ratio 1.1, Triglycerides 74, Cholesterol 195, LDL Cholesterol 112, VLDL Cholesterol 15, HDL Cholesterol 68, TSH 0.65 Radiography Diagnostic Testing: Radiology Impression Abdomen/Pelvis CT 03/24/23 21:40 IMPRESSION: 1. Cholelithiasis but no acute cholecystitis. 2. No other acute or inflammatory disease or bowel obstruction. 3. Ancillary findings as above. Electronically Signed: Alfredo Mallory MD at 23:08 EST , Physical Exam Const alert and no apparent distress HEENT head/scalp atraumatic and moist oral mucous membranes Assessment & Plan Assessment/Plan (1) Hyperbilirubinemia: (2) Elevated liver enzymes: (3) Gallstones: (4) Gallbladder colic: (5) Obesity: QUALIFIERS: Body mass index: BMI 39.0-39.9 Obesity classification: adult class 2 (BMI 35 - 39.9) Obesity type: unspecified obesity type Serious obesity comorbidity presence: with serious comorbidity Qualified Code(s): E66.01 - Morbid (severe) obesity due to excess calories; Z68.39 - Body mass index [BMI] 39.0-39.9, adult (6) Abdominal pain: QUALIFIERS: Abdominal location: epigastric Qualified Code(s): R10.13 - Epigastric pain PLAN: Plan Hyperbilirubinemia and transaminitis Secondary choledocholithiasis MRCP showed cholelithiasis with choledocholithiasis with mild biliary dilation. ERCP today Cholecystectomy tomorrow. Chronic conditions: Hypothyroidism - Continue Synthroid and check TSH. Depression - Resume home regimen. Obesity; with BMI of 39.3 this admission - Weight loss will be recommended. history of lumbar radiculopathy - Noted. DVT prophylaxis - Lovenox 40 mg sq daily. Charges/Coding Visit Charges Inpatient E&M: 40344 [facility] Hosp L1
[2023-03-25] MEDS: Ketorolac 15 MG/ML Vial IV (08:22)
--- NOTE | 2023-03-25 08:49 | MRI_ITS ---
STUDY: MRI ABDOMEN WITHOUT CONTRAST REASON FOR EXAM: Female, 52 years old. Elevated liver enzymes -- TECHNIQUE: Standardized fat and water weighted pulse sequences were obtained in all 3 orthogonal planes. MRCP sequences with 3-D reconstructions performed. COMPARISON: CT March 24, 2023 FINDINGS: The visualized lung bases are unremarkable. The visualized portions of the heart are within normal limits. There is hepatomegaly with diffuse hepatic enlargement. There are multiple gallstones. There is 0.4 cm stone in the common bile duct, series 11 image 23. The common bile duct measures 0.7 cm. There is mild splenomegaly. Normal pancreas. Normal bilateral adrenal glands. Normal right kidney. Normal left kidney. There is a small hiatal hernia. Normal small intestine. Normal colon. There is non-visualization of the appendix. Normal abdominal aorta. Normal inferior vena cava. Normal retroperitoneum. Normal abdominal wall. There is degenerative change of the spine. MRI/MRCP Abdomen without Contrast IMPRESSION: Cholelithiasis with choledocholithiasis and mild biliary dilatation. Hepatosplenomegaly. Small hiatal hernia. Electronically Signed: David Villa MD at 11:10 EST ,
[2023-03-25] MEDS: Morphine 2 MG/ML Syringe 1 MG IV (11:06)
--- NOTE | 2023-03-25 11:35 | CASEMGMT ---
VITA TUTTLE Assessment Face to Face with patient for initial transition planning/care coordination assessment. VITA TUTTLE introduced self and role at [facility], pt voices understanding. Pt is A&Ox4 and is resting comfortably in bed and is calm. Care providers, pharmacy, and demographics verified. Admitting dx: Hyperbilirubinemia with elevated LFTs LACE Strata: 1 PCP: Mallika Specialists: Clari De La Cruz Pharmacy: [facility] Insurance: [employer] Prescription Benefit: Yes LNOK: Jed Birch (H) Living Arrangements: Pt lives with her and 2 children (age 22 and 17) in a 2 story home with no BM with HR and a flat entrance. ADLs/IADLs: Ind Transportation: Pt and pt drive DME: Cane and walker at home but does not use. Pt denies all other DME needs. HHC/SNF: Denies history or needs. Pt?s goal: Home Plan: Pt plan is to DC home via her with no additional needs at this time, pt denies the need for any additional therapy. Ander Headley RN, CM
[2023-03-25] MEDS: metroNIDAZOLE 500 MG/100 ML BAG 100 MG IV ×2 (12:50→22:16)
[2023-03-25] MEDS: Ciprofloxacin 400 MG/200 ML BAG 200 MG IV ×2 (14:15→22:22)
[2023-03-25 15:02] LABS: Internal QC Validated? YES +Cl - CLEAR BKGD; Pregnancy, Urine Negative Negative
[2023-03-25 15:04] LABS: Record Kit Lot#,Urine Preg 718086
[2023-03-25] MEDS: Lactated Ringers 1,000 ML 15 ML IV (16:17)
--- NOTE | 2023-03-25 16:20 | EKG12_ITS ---
Test Reason : CP Blood Pressure : / mmHG Vent. Rate : 056 BPM Atrial Rate : 056 BPM P-R Int : 150 ms QRS Dur : 094 ms QT Int : 476 ms P-R-T Axes : 044 011 039 degrees QTc Int : 459 ms Sinus bradycardia with sinus arrhythmia Otherwise normal ECG Confirmed by SERAFIN RAMAN, LILIANA ([id number]), editor newspaper KAUSHIK JOSHUA ([id number]) on 03/29/2023 6:31:14 AM Referred By: Luis Daniel Fortune Confirmed By:LILIANA BETANCOURT MD
--- NOTE | 2023-03-25 17:00 | RAD_ITS ---
Fluoroscopic-guided ERCP INDICATION: Abdominal pain TECHNIQUE: Fluoroscopic guided ERCP was performed in usual fashion by attending raw stock machine feeder. Radiation dose was 36.03 mGy FINDINGS: 11 images were obtained in the anterior projection pre and post contrast injection to document findings during the exam. For more complete information recommend correlation with procedural notes RAD/ERCP Biliary/Pancreas IMPRESSION: Fluoroscopic-guided ERCP Electronically Signed: Wes Adams MD at 22:50 EST ,
--- NOTE | 2023-03-25 17:23 | OP.ERCP_ITS ---
Patient Name: Mamie Birch Procedure Date: 03/25/2023 4:25 PM Date of : 1970 Age: 52 Procedure: ERCP Indications: Bile duct stone(s) Providers: Fred Corrales DO Referring MD: Luis Daniel Garsia Do Medicines: Monitored Anesthesia Care Patient Profile: This is a 52 year old female. Refer to note in patient chart for documentation of history and physical. Patient has symptoms of acute right upper quadrant abdominal pain, acute jaundice and acute nausea. Complications: No immediate complications. Procedure: Pre-Anesthesia Assessment: - Prior to the procedure, a History and Physical was performed, and patient medications and allergies were reviewed. The patient is competent. The risks and benefits of the procedure and the sedation options and risks were discussed with the patient. All questions were answered and informed consent was obtained. Patient identification and proposed procedure were verified by the physician in the pre-procedure area. Mental Status Examination: alert and oriented. Airway Examination: normal oropharyngeal airway and neck mobility. Respiratory Examination: clear to auscultation. CV Examination: normal. Prophylactic Antibiotics: The patient does not require prophylactic antibiotics. Prior Anticoagulants: The patient has taken no anticoagulant or antiplatelet agents. ASA Grade Assessment: II - A patient with mild systemic disease. After reviewing the risks and benefits, the patient was deemed in satisfactory condition to undergo the procedure. The anesthesia plan was to use monitored anesthesia care (MAC). Immediately prior to administration of medications, the patient was re-assessed for adequacy to receive sedatives. The heart rate, respiratory rate, oxygen saturations, blood pressure, adequacy of pulmonary ventilation, and response to care were monitored throughout the procedure. The physical status of the patient was re-assessed after the procedure. After obtaining informed consent, the scope was passed under direct vision. Throughout the procedure, the patient's blood pressure, pulse, and oxygen saturations were monitored continuously. The Duodenoscope was introduced through the mouth, and advanced to the duodenum and used to inject contrast into the dorsal and ventral pancreatic ducts. The ERCP was accomplished without difficulty. The patient tolerated the procedure well. Scope In: 5:04:02 PM Scope Out: 5:15:28 PM Total Procedure Duration Time 0 hours 11 minutes 26 seconds Findings: The yard crane operator film was normal. The esophagus was successfully intubated under direct vision. The scope was advanced to a normal major papilla in the descending duodenum without detailed examination of the pharynx, larynx and associated structures, and upper GI tract. The upper GI tract was grossly normal. The bile duct was deeply cannulated with the short-nosed traction sphincterotome. Contrast was injected. I personally interpreted the bile duct and pancreatic duct images. There was brisk flow of contrast through the ducts. Image quality was excellent. Contrast extended to the entire biliary tree. Opacification of the entire opacified area and entire biliary tree was successful. The maximum diameter of the ducts was 8 mm. The lower third of the main bile duct contained two stones, the largest of which was 6 mm in diameter. The entire opacified area, lower third of the main bile duct and entire biliary tree were moderately dilated and segmentally dilated, with a stone causing an obstruction. The largest diameter was 8 mm. A straight Roadrunner wire was passed into the biliary tree. A 5 mm biliary sphincterotomy was made with a traction (standard) sphincterotome using ERBE electrocautery. The sphincterotomy oozed blood. The biliary tree was swept with a 12 mm balloon starting at the bifurcation. Sludge was swept from the duct. All stones were removed. Dilation of the hepatic duct bifurcation with 5-7-8.5 Fr catheter dilator was successful. Dilation of the common bile duct with a 10-11-12 mm balloon (to a maximum balloon size of 11 mm) dilator was successful. One 10 Fr by 5 cm temporary stent was placed 5 cm into the common bile duct. Bile flowed through the stent. The stent was in good position. Impression: - The lower third of the main bile duct and entire biliary tree were moderately dilated, with a stone causing an obstruction. - Choledocholithiasis was found. Complete removal was accomplished by biliary sphincterotomy and balloon extraction. - A biliary sphincterotomy was performed. - The biliary tree was swept. - The hepatic duct bifurcation was successfully dilated. - Common bile duct was successfully dilated. - One temporary stent was placed into the common bile duct. Procedure Code(s): --- Professional --- 23708, Endoscopic retrograde cholangiopancreatography (ERCP); with placement of endoscopic stent into biliary or pancreatic duct, including pre- and post-dilation and guide wire passage, when performed, including sphincterotomy, when performed, each stent 59499, Endoscopic retrograde cholangiopancreatography (ERCP); with removal of calculi/debris from biliary/pancreatic duct(s) 24068, 26, Combined endoscopic catheterization of the biliary and pancreatic ductal systems, radiological supervision and interpretation 33726, Unlisted procedure, biliary tract CPT copyright 2021 [employer]. All rights reserved. The codes documented in this report are preliminary and upon scale expert review may be revised to meet current compliance requirements. Fred Corrales DO 03/25/2023 5:23:29 PM This report has been signed electronically. Number of Addenda: 0 Note Initiated On: 03/25/2023 4:25 PM
--- NOTE | 2023-03-25 17:24 | OP.CCLET_ITS ---
03/25/2023 Héctor Tena [address] [place] [address] Re : ERCP procedure for Mamie Birch Dear Dr. Tena This procedure was performed on Saturday, March 25, 2023. My impressions and recommendations are as follows: Impressions : - The lower third of the main bile duct and entire biliary tree were moderately dilated, with a stone causing an obstruction. - Choledocholithiasis was found. Complete removal was accomplished by biliary sphincterotomy and balloon extraction. - A biliary sphincterotomy was performed. - The biliary tree was swept. - The hepatic duct bifurcation was successfully dilated. - Common bile duct was successfully dilated. - One temporary stent was placed into the common bile duct. Recommendations : My findings are described in the full procedure note, which is enclosed. If I can be of further assistance, please feel free to contact me at . Sincerely, Fred Corrales, 03/25/2023 5:23:29 PM This report has been signed electronically.
[2023-03-26] VITALS (18 sets, daily range): BP systolic 99–143; BP diastolic 51–86; PULSE 60–82; RESP 16–20; TEMP 36.5–37.2; O2SAT 93–100; BMI 39.3; BMI 39.2
--- NOTE | 2023-03-26 | GALL_PTH ---
PATHOLOGY RESULTS PATIENT: MARY BARNETT LOC: MS3 U#:[id number] AGE/SX: 52/F ROOM: FL317 RE03/24/[address]: Dr. Humble Ospina DO : 1970 BED: 1 DIS: 03/27/2023 SPEC #: [id number] RECD: 03/28/23 05:42 STATUS: FRANCI REBarber #: [id number] DIANA: 03/26/23 00:[address]: Varsha Lenz DEPT: SURGICAL PATHOLOGY RECD BY: Horacio Camacho ENTERED: 03/28/23 08:06 SP TYPE: GALLBLADDE OTHR DR: DO Dr. Humble Urias DO Dr. Mark Elderbrock, MD Dr. Rahsaan Friend, DO Dr. Varsha Lenz MD Tissues: Gallbladder, NOS Procedures: Surgery Specimen Level III Comments: @ Ordering doctor for SUIII edited from to @ by HAWA at 03/28/23 1451 @ Submitting doctor edited from to @ by RGOOD at 03/28/23 1451 HEADER OPERATION: Laparoscopic cholecystectomy PRE-OP DIAGNOSIS: Cholelithiasis TISSUE SUBMITTED: Gallbladder MICROSCOPIC DIAGNOSIS Gallbladder, cholecystectomy: Chronic cholecystitis and cholelithiasis. ELIDA:ezekiel 03/29/2023 MICROSCOPIC DESCRIPTION Slides are reviewed. GROSS DESCRIPTION Received is one container labeled with the patient's name and designated gallbladder. The specimen consists of a gallbladder measuring 14.0 cm in length and up to 5.5 cm in diameter. The external surface is pink-cintron, smooth and glistening for the most part. Focally it is granular, hemorrhagic and contains cautery artifact. The gallbladder contains green-yellow mucoid bile and distended with multiple multifaceted, esyiro-lisbvs-faxfgtcq-black stones measuring in aggregate 8.0 x 9.0 x 3.0 cm and 0.3 to 2.5 cm in greatest dimension. The mucosa is bile-stained and without any mass lesions. The gallbladder wall measures up to 0.2 cm in thickness. Control Electrician sections from the gallbladder and the cystic duct are submitted in one cassette. / ELIDA:ezekiel 03/28/2023 TC:3 CPT: 88912
[2023-03-26] MEDS: 0.9% Saline Lock 10 ML Syringe IV ×2 (01:06→17:59)
[2023-03-26] MEDS: 0.9% Normal Saline (1000mL) 1,000 ML 150 ML IV ×2 (01:06→06:41)
[2023-03-26 06:09] LABS: HEPATITIS B SURFACE AG Negative (Negative); Hep C Antibodies Non Reactive (Non Reactive); Hepatitis A IgM Antibody Negative (Negative); Hepatitis B Core AB IgM Negative (Negative)
[2023-03-26 06:36] LABS: Absolute Lymphocyte Count 0.66 X10^3/uL (0.83-4.51); Absolute Neutrophil Count 5.7 X10^3/uL (2.0-7.7); Basophil# 0.02 X10^3/uL; Basophil% 0.3 % (0-1); Eosinophil# 0.01 X10^3/uL; Eosinophils% 0.2 % (0-5); Hematocrit 40.4 % (37-47); Hemoglobin 12.8 g/dL (12.0-15.0); Lymphocyte # 0.66 X10^3/ul (0.83-4.51); Mean Corp Hgb Conc 31.7 g/dL (32-36); Mean Corpuscular Hgb 28.1 pg (27.0-32.0); Mean Corpuscular Volume 88.6 fL (81-99); Mean Platelet Vol. 11.2 fl (6.2-12.0); Monocyte# 0.18 X10^3/uL; Monocyte% 2.7 % (0-10); NRBC Flagged by Analyzer 0 % (0-5); Neutrophil # 5.67 X10^3/uL (2.7-7.7); Platelet Count 288 K/mm3 (150-450); RBC Distribution Width CV 13.9 % (11.6-14.6); RBC Distribution Width SD 44.9 fl (35.1-43.9); Red Blood Count 4.56 M/mm3 (4.2-5.4); White Blood Count 6.6 K/mm3 (4.4-11.0)
[2023-03-26] MEDS: metroNIDAZOLE 500 MG/100 ML BAG 100 MG IV (06:40)
[2023-03-26] MEDS: Levothyroxine 75 MCG Tablet PO (06:44)
[2023-03-26 07:13] LABS: ALB/GLOB Ratio 0.9 RATIO (0.9-2.4); AST(SGOT) 175 U/L (15-37); Alanine Aminotransfer ALT/SGPT 541 U/L (13-56); Albumin, Serum 3.3 g/dL (3.2-5.0); Alkaline Phosphatase 191 U/L (45-117); Anion Gap 3 (5-15); BUN 8 mg/dL (7-18); BUN/Creat Ratio 12.4 RATIO (10-20); Calcium,Total 8.5 mg/dL (8.5-10.1); Chloride 113 mmol/L (98-107); Creatinine, Serum 0.64 mg/dL (0.55-1.02); EST Glomerular Filtration Rate 102 mL/min (>60); Est Glom Filt Rate - Afr Amer 124 mL/min (>60); Estimated Creatinine Clearance 149.95 ml/min; Globulin 3.5 g/dL (2.2-4.2); Glucose 124 mg/dL (74-106); Potassium 4.2 mmol/L (3.5-5.1); Protein, Total 6.8 g/dL (6.4-8.2); Sodium Level 140 mmol/L (136-145)
--- NOTE | 2023-03-26 07:19 | PN.HOSP_ITS ---
Reason for Visit Reason for Visit: Diagnoses Morbid (severe) obesity due to excess calories (03/24/23) Other disorders of bilirubin metabolism (03/24/23) Calculus of gallbladder without cholecystitis without obstruction (03/24/23) Epigastric pain (03/24/23) Abnormal levels of other serum enzymes (03/24/23) Body mass index [BMI] 39.0-39.9, adult (03/24/23) Subjective Subjective Groggy postop Objective Data Objective Data Vital Signs: Vital Signs Temp Pulse Resp BP Pulse Ox O2 Del Method O2 Flow Rate 36.5 C L 67 18 126/71 H 94 Room Air 2 03/26/23 06:30 03/26/23 06:30 03/26/23 06:30 03/26/23 06:30 03/26/23 06:30 03/26/23 06:30 03/25/23 17:40 Oxygen Flow Rate (L/min) 2 Oxygen Delivery Method Room Air Weight: 127.4 kg Body Mass Index (BMI) 39.2 Intake & Output: Intake and Output for Last 24 Hours 03/24/23 03/25/23 03/26/23 23:59 23:59 23:59 Intake Total 1000 / 1000 2367.0 / 2367.0 2137.5 / 2137.5 Balance 1000 / 1000 2367.0 / 2367.0 2137.5 / 2137.5 Lab / Micro Data 03/26/23 06:01 03/26/23 06:01 Labs: Laboratory Results - last 24 hr 03/24/23 22:55: Hepatitis A IgM Ab Negative, Hep Bs Antigen Negative, Hep B Core IgM Ab Negative, Hepatitis C Ab (EIA) Non Reactive, Hep C Ab Comment Comment 03/25/23 05:17: Hemoglobin A1c 5.3, Direct Bilirubin 1.27 H 03/25/23 14:15: Urine Test Negative 03/26/23 06:01: WBC 6.6, RBC 4.56, Hgb 12.8, Hct 40.4, MCV 88.6, MCH 28.1, MCHC 31.7 L, RDW Std Deviation 44.9 H, RDW Coeff of Janna 13.9, Plt Count 288, MPV 11.2, Immature Gran % (Auto) 0.800, Neut % (Auto) 86.0 H, Lymph % (Auto) 10.0 L, [place] % (Auto) 2.7, Eos % (Auto) 0.2, Baso % (Auto) 0.3, Absolute Neuts (auto) 5.7, Absolute Lymphs (auto) 0.66 L, Nucleated RBC % 0, Sodium 140, Potassium 4.2, Chloride 113 H, Carbon Dioxide 24.0, Anion Gap 3 L, BUN 8, Creatinine 0.64, Estim Creat Clear Calc 149.95, Est GFR (MDRD) Af Amer 124, Est GFR (MDRD) Non- Af 102, BUN/Creatinine Ratio 12.4, Glucose 124 H, Calcium 8.5, Total Bilirubin 0.60, AST 175 H, ALT 541 H, Alkaline Phosphatase 191 H, Total Protein 6.8, Albumin 3.3, Globulin 3.5, Albumin/Globulin Ratio 0.9 Radiography Diagnostic Testing: Radiology Impression MRCP 03/25/23 08:49 IMPRESSION: Cholelithiasis with choledocholithiasis and mild biliary dilatation. Hepatosplenomegaly. Small hiatal hernia. Electronically Signed: David Villa MD at 11:10 EST , Endo Retro Cholangiopancreatogram 03/25/23 17:00 IMPRESSION: Fluoroscopic-guided ERCP Electronically Signed: Wes Adams MD at 22:50 EST , Physical Exam Const Constitutional Narrative: Groggy. Shakes her right hand [id number] when asked how she is doing. Assessment & Plan Assessment/Plan (1) Hyperbilirubinemia: (2) Elevated liver enzymes: (3) Gallstones: (4) Gallbladder colic: (5) Obesity: QUALIFIERS: Body mass index: BMI 39.0-39.9 Obesity classification: adult class 2 (BMI 35 - 39.9) Obesity type: unspecified obesity type Serious obesity comorbidity presence: with serious comorbidity Qualified Code(s): E66.01 - Morbid (severe) obesity due to excess calories; Z68.39 - Body mass index [BMI] 39.0-39.9, adult (6) Abdominal pain: QUALIFIERS: Abdominal location: epigastric Qualified Code(s): R10.13 - Epigastric pain PLAN: Plan Hyperbilirubinemia and transaminitis * Secondary choledocholithiasis * MRCP showed cholelithiasis with choledocholithiasis with mild biliary dilation. * ERCP 03/25: Choledocholithiasis was found. Complete removal was complex with biliary sphincterotomy and balloon extraction. * Cholecystectomy 03/26 * Chronic conditions: * Hypothyroidism - Continue Synthroid * Depression - Resume home regimen. * Obesity; with BMI of 39.3 this admission - Weight loss will be recommended. * history of lumbar radiculopathy - Noted. DVT prophylaxis - Lovenox 40 mg sq daily. No active medical issues. Management, diet, pain medication, disposition per general surgery. Hospital service following as patient admitted to our service. Charges/Coding Visit Charges Inpatient E&M: 84705 Subs Hosp L1
[2023-03-26] MEDS: Ciprofloxacin 400 MG/200 ML BAG 200 MG IV (10:00)
--- NOTE | 2023-03-26 10:29 | OP.PCM_ITS ---
Report of Operation Date of Procedure: 03/26/23 Pre-Operative Diagnosis: Choledocholithiasis status post ERCP, cholelithiasis/c holecystitis Post-Operative Diagnosis: Same Surgery/Procedure Performed:: Laparoscopic cholecystectomy Surgeon: Varsha Lenz Type of Anesthesia: General/Supplemental Anesthesiologist: Humble Harvey Special Medications: Cipro 400 mg IV every 12 hours and Flagyl 500 mg IV every 8 hours for choledocholithiasis/cholecystitis Specimen's removed: Gallbladder and stones Estimated Blood Loss (mL): 20 cc Description of Procedure: Indications: this is a 52 year-old female who developed abdominal pain/nausea/vomiting and on workup was found to have epigastric abdominal pain, choledocholithiasis, cholelithiasis, with a normal common bile duct. Laparoscopic cholecystectomy was elected. Description procedure: The patient was placed on operating table in supine position. A timeout was completed verifying correct patient, procedure, site, position and special equipment prior to beginning procedure. General Anesthesia was induced. The abdomen was prepped and draped in usual sterile fashion. An incision was made in the natural skin line above the umbilicus. The fascia was elevated and incised. The peritoneum was elevated and incised. Entry into the peritoneum was confirmed visually and no bowel was noted in the vicinity of the incision. Hardwick trocar was placed. The abdomen was insufflated with carbon dioxide to a pressure of 12-15 mmHg. Patient tolerated insufflation well. The laparoscope was then inserted and abdomen inspected. No injuries from initial trocar placement were noted. Additional trochars were then inserted in the following locations 5 mm trocar in the epigastrium and 2 more 5 mm trochars along the right costal margin. The abdomen was inspected no abnormalities were found, gallbladder was distended and packed with stones. The table is placed in reverse Trendelenburg position with the right side up. The dome of the gallbladder was grasped with atraumatic grasper passed through the lateral port and retracted over the dome of the liver. Infundibulum was then grasped with atraumatic grasper through the midclavicular port and retracted to the right lower quadrant. This maneuver exposed Calot's triangle. The peritoneum overlying the gallbladder infundibulum was then incised and cystic duct and artery identified and circumferentially dissected. The epigastric port site was switched out for a 12 mm for 10 mm Hem-o-naeem clips. The cystic duct and artery were then doubly clipped and divided close to the gallbladder. The gallbladder then dissected from its peritoneal attachments by electrocautery. Hemostasis was checked and the gallbladder and contained stones were removed using the endoscopic retrieval bag through the umbilical port, which needed to be enlarged for removal of gallbladder and stones. The ga llbladder is passed off table as specimen. The gallbladder fossa was irrigated with saline and hemostasis obtained. There is no evidence of bleeding from the gallbladder fossa or cystic artery leakage of bile from the cystic duct stump. Secondary trochars removed under direct vision. No bleeding was noted the trocar sites. The laparoscope was withdrawn and umbilical trocar removed. The abdomen was allowed to collapse. The fascia of the 12 mm trocar was closed with 4 nkxvgc-na-ysrck 1 PDS suture at the supraumbilical location, epigastric was closed with 1 vpvmxn-hw-sayjo 0 Vicryl suture. The skin was closed with sutures of 4-0 Monocryl and Steri-Strips. The patient was extubated. The patient tolerated procedure well and was taken to the postanesthesia care unit in stable condition. Complications none
--- NOTE | 2023-03-26 10:32 | DCINST_ITS ---
Discharge Instructions Diet Discharge Diet: Light diet - advance as tolerated Activity Discharge Activity: May Not Drive (while taking narcotic pain medications.) May shower in (days): 1 Lifting Restrictions: no lifting >20 lbs x 2 wks, no strenuous exercise for 4 wks Dressing / Incision Call your doctor if your incision/area has: Continuous Slow Oozing, Sudden Increased Bleeding, Increased Pain/ Swelling, Increased Redness, Foul Smelling Discharge and Swelling at the incision site Call your doctor if you observe: Fever of 101 or Higher Remove Dressing in: 2 days Cleanse incision/area with: Soap & Water Additional Dressing/Incision Instructions:: Steri-Strips will fall off in 7 to 10 days, if they do not fall off okay to remove after 10 days. Follow Up Care Please Follow Up With: Varsha Lenz MD When: Call the office for a follow-up appointment 2 weeks; after 5 PM and on the weekends call [phone] with any concerns. Test Results: Test results from this visit will be discussed in further detail at your follow- up appointment, if applicable. Discharge Plan Admission Admit Date/Time: 03/24/23 23:25 Attending Provider: Humble Ospina Primary Care Provider: Héctor Tena Consulting Providers: Varsha Lenz; Luis Daniel Fortune; Fred Corrales Discharge Orders/Prescriptions Prescriptions: New oxycodone-acetaminophen 5-325 mg tablet 1 - 2 tab PO Q6H PRN (Reason: pain) 3 Days Qty: 14 0RF Continued bupropion HCl 300 MG tablet extended release 24 hr 300 mg PO DAILY cholecalciferol (vitamin D3) 1,000 UNIT tablet 1,000 unit PO DAILY Cbd Oil 3,020 mg sublingual BID Rx Instructions: WILL STOP 5 DAYS PRIOR TO SURGERY fluoxetine 20 MG capsule 40 mg PO DAILY levothyroxine 75 mcg tablet 75 mcg PO DAILY Patient Comments: TAKE 1 TABLET BY MOUTH ONCE DAILY ON AN EMPTY STOMACH FOR THYROID meloxicam 15 mg tablet 15 mg PO DAILY Qty: 30 0RF Rx Instructions: Do not take in conjunction with other NSAID. Tylenol is okay. Referrals / Follow Up: Héctor Tena MD [Primary Care Provider] - Disposition Disposition (needs filled in before D/C Order can be placed): Home, Self Care
[2023-03-26] MEDS: Bupivacaine Mpf 0.5% 30 ML VIAL (10:35)
[2023-03-26] MEDS: Lactated Ringers 1,000 ML 15 ML IV (11:07)
[2023-03-26] MEDS: Pantoprazole Sodium 40 MG in 0.9% Normal Saline (100mL MB+) 100 ML 330 MG IV (11:07)
[2023-03-26] MEDS: LORazepam 2 MG/ML Syringe 0.5 MG IV ×2 (11:26→11:48)
[2023-03-26] MEDS: Ketorolac 30 MG/ML Syringe IV (11:26)
--- NOTE | 2023-03-26 16:29 | EX.PCM.PN.GI ---
Subjective Subjective Patient underwent a cholecystectomy today. She is doing well without any abdominal pain, cramping and continues to be afebrile. Objective Data Objective Data Vital Signs: Vital Signs Temp Pulse Resp BP Pulse Ox O2 Del Method O2 Flow Rate 99 F 82 16 105/54 L 96 Nasal Cannula 2 03/26/23 14:54 03/26/23 14:54 03/26/23 14:54 03/26/23 14:54 03/26/23 14:54 03/26/23 14:54 03/26/23 14:54 Oxygen Flow Rate (L/min) 2 Oxygen Delivery Method Nasal Cannula Weight: 280 lb 13.903 oz Body Mass Index (BMI) 39.2 Intake & Output: Intake and Output for Last 24 Hours 03/24/23 03/25/23 03/26/23 23:59 23:59 23:59 Intake Total 1000 / 1000 2367.0 / 2367.0 2547.5 / 2547.5 Balance 1000 / 1000 2367.0 / 2367.0 2547.5 / 2547.5 Lab / Micro Data 03/26/23 06:01 03/26/23 06:01 Labs: Laboratory Results - last 24 hr 03/24/23 22:55: Hepatitis A IgM Ab Negative, Hep Bs Antigen Negative, Hep B Core IgM Ab Negative, Hepatitis C Ab (EIA) Non Reactive, Hep C Ab Comment Comment 03/26/23 06:01: WBC 6.6, RBC 4.56, Hgb 12.8, Hct 40.4, MCV 88.6, MCH 28.1, MCHC 31.7 L, RDW Std Deviation 44.9 H, RDW Coeff of Janna 13.9, Plt Count 288, MPV 11.2, Immature Gran % (Auto) 0.800, Neut % (Auto) 86.0 H, Lymph % (Auto) 10.0 L, Patrick % (Auto) 2.7, Eos % (Auto) 0.2, Baso % (Auto) 0.3, Absolute Neuts (auto) 5.7, Absolute Lymphs (auto) 0.66 L, Nucleated RBC % 0, Sodium 140, Potassium 4.2, Chloride 113 H, Carbon Dioxide 24.0, Anion Gap 3 L, BUN 8, Creatinine 0.64, Estim Creat Clear Calc 149.95, Est GFR (MDRD) Af Amer 124, Est GFR (MDRD) Non-Af 102, BUN/Creatinine Ratio 12.4, Glucose 124 H, Calcium 8.5, Total Bilirubin 0.60, AST 175 H, ALT 541 H, Alkaline Phosphatase 191 H, Total Protein 6.8, Albumin 3.3, Globulin 3.5, Albumin/Globulin Ratio 0.9 Radiography Diagnostic Testing: Radiology Impression Endo Retro Cholangiopancreatogram 03/25/23 17:00 IMPRESSION: Fluoroscopic-guided ERCP Electronically Signed: Wes Adams MD at 22:50 EST , Physical Exam Const alert and no apparent distress HEENT head/scalp atraumatic and moist oral mucous membranes Assessment & Plan Assessment/Plan (1) Gallbladder colic: (2) High transaminase levels: (3) Hyperbilirubinemia: (4) Gallstones: (5) Abdominal pain: QUALIFIERS: Abdominal location: epigastric Qualified Code(s): R10.13 - Epigastric pain PLAN: Plan 52-year-old with acute cholecystitis and acute choledocholithiasis status post ERCP with sphincterotomy, balloon dilation, stone removal and temporary stent placement. She is also status post cholecystectomy. She is doing very well. She will need to follow-up in approximately 6 to 8 weeks for stent removal or exchange. Charges/Coding Visit Charges Inpatient E&M: 69816 Subs Hosp L3
[2023-03-26] MEDS: oxyCODONE 5 MG Tablet PO (17:58)
[2023-03-26] MEDS: 0.9% Normal Saline (1000mL) 1,000 ML 80 ML IV (21:39)
[2023-03-27 01:10] VITALS: O2SAT 87
[2023-03-27 01:15] VITALS: BP 101/59; PULSE 64; RESP 16; TEMP 36.7; O2SAT 95
[2023-03-27] MEDS: oxyCODONE 5 MG Tablet PO ×2 (01:43→06:35)
[2023-03-27 05:15] VITALS: BP 121/72; PULSE 64; RESP 18; TEMP 36.8; O2SAT 96
[2023-03-27] MEDS: Levothyroxine 75 MCG Tablet PO (06:10)
[2023-03-27 06:54] LABS: AST(SGOT) 92 U/L (15-37); Alanine Aminotransfer ALT/SGPT 367 U/L (13-56); Alkaline Phosphatase 152 U/L (45-117); Bilirubin, Direct 0.26 mg/dL (0.00-0.30); Globulin 2.8 g/dL (2.2-4.2); Protein, Total 5.8 g/dL (6.4-8.2)
[2023-03-27 07:18] VITALS: O2SAT 95
[2023-03-27 08:47] VITALS: BP 131/64; PULSE 84; RESP 18; TEMP 37.3; O2SAT 95
[2023-03-27] MEDS: Pantoprazole Sodium 40 MG in 0.9% Normal Saline (100mL MB+) 100 ML 330 MG IV (08:53)
--- NOTE | 2023-03-27 08:58 | DS.PCM_ITS ---
Providers Date of Admission: 03/24/23 Primary Care Physician: Dr. Héctor Tena MD Consultations 03/24/23 23:54 Consult: Gastroenterology Routine Consulting Provider: Fred Corrales Reason for Consult: Hyperbilirubinemia with increased LFT's and gallstones. EMERGENT Consult: No Notified: Yes Date Notified: 03/25/23 Time Notified: 06:20 Method of Notification: Text Consult: General Surgery Routine Consulting Provider: Varsha Lenz Reason for Consult: Hyperbilirubinemia, increased LFT's and gallstones. EMERGENT Consult: No Notified: Yes Date Notified: 03/24/23 Time Notified: 23:27 Method of Notification: ED Physician Initiated Reason For Visit: HYPERBILIRUBINEMIA WITH ELEVATED LFT'S Diagnosis Discharge Diagnosis (1) Gallbladder colic: Status: Acute Code(s): K80.20 - Calculus of gallbladder without cholecystitis without obstruction (2) High transaminase levels: Status: Acute Code(s): R74.01 - Elevation of levels of liver transaminase levels (3) Hyperbilirubinemia: Status: Acute Code(s): E80.6 - Other disorders of bilirubin metabolism (4) Gallstones: Status: Acute Code(s): K80.20 - Calculus of gallbladder without cholecystitis without obstruction (5) Abdominal pain: Status: Acute Code(s): R10.9 - Unspecified abdominal pain Qualifiers: Abdominal location: epigastric Qualified Code(s): R10.13 - Epigastric pain Plan Hyperbilirubinemia and transaminitis * Secondary choledocholithiasis * MRCP showed cholelithiasis with choledocholithiasis with mild biliary dilation. * ERCP 03/25: Choledocholithiasis was found. Complete removal was complex with biliary sphincterotomy and balloon extraction. * Cholecystectomy 03/26 * Follow up w general surgery. Medications at Discharge Home Medications Cbd Oil 3,020 mg sublingual BID PAIN 08/21/18 bupropion HCl 300 mg 24 hr tablet, extended release 300 mg PO DAILY DEPRESSION 08/21/18 cholecalciferol (vitamin D3) 25 mcg (1,000 unit) tablet 1,000 unit PO DAILY SUPPLEMENT 08/21/18 fluoxetine 20 mg capsule 40 mg PO DAILY DEPRESSION 08/21/18 meloxicam 15 mg tablet 15 mg PO DAILY #30 tabs 05/07/22 levothyroxine 75 mcg tablet 75 mcg PO DAILY 03/24/23 oxycodone-acetaminophen 5 mg-325 mg tablet 1 - 2 tab PO Q6H PRN pain 3 days #14 tabs 03/26/23 Physical Exam Narrative Feeling better. Const alert and no apparent distress Constitutional Narrative: up in chair Weight / BMI Weight Weight: 127.4 kg Body Mass Index (BMI) 39.2 ABG / Lab / Microbiology Data 03/26/23 06:01 03/26/23 06:01 Laboratory: Laboratory Results - last 24 hr 03/27/23 06:05: Total Bilirubin 0.60, Direct Bilirubin 0.26, AST 92 H, ALT 367 H , Alkaline Phosphatase 152 H, Total Protein 5.8 L, Albumin 3.0 L, Globulin 2.8 D/C Instructions Discharge Diet: Light diet - advance as tolerated May shower in (days): 1 Call your doctor if your incision/area has: Continuous Slow Oozing, Sudden Increased Bleeding, Increased Pain/ Swelling, Increased Redness, Foul Smelling Discharge and Swelling at the incision site Call your doctor if you observe: Fever of 101 or Higher Cleanse incision/area with: Soap & Water Additional Dressing/Incision Instructions: Steri-Strips will fall off in 7 to 10 days, if they do not fall off okay to remove after 10 days. Please Follow Up With: Varsha Lenz MD When: Call the office for a follow-up appointment 2 weeks; after 5 PM and on the weekends call [phone] with any concerns. Meaningful Use Info Meaningful Use Diagnoses (Choose all that apply): None applicable Discharge Plan Admission Admit Date/Time: 03/24/23 23:25 Attending Provider: Humble Ospina Primary Care Provider: Héctor Tena Consulting Providers: Varsha Lenz; Luis Daniel Fortune; Fred Corrales Discharge Orders/Prescriptions Prescriptions: New oxycodone-acetaminophen 5-325 mg tablet 1 - 2 tab PO Q6H PRN (Reason: pain) 3 Days Qty: 14 0RF Continued bupropion HCl 300 MG tablet extended release 24 hr 300 mg PO DAILY cholecalciferol (vitamin D3) 1,000 UNIT tablet 1,000 unit PO DAILY Cbd Oil 3,020 mg sublingual BID Rx Instructions: WILL STOP 5 DAYS PRIOR TO SURGERY fluoxetine 20 MG capsule 40 mg PO DAILY levothyroxine 75 mcg tablet 75 mcg PO DAILY Patient Comments: TAKE 1 TABLET BY MOUTH ONCE DAILY ON AN EMPTY STOMACH FOR THYROID meloxicam 15 mg tablet 15 mg PO DAILY Qty: 30 0RF Rx Instructions: Do not take in conjunction with other NSAID. Tylenol is okay. Referrals / Follow Up: Héctor Tena MD [Primary Care Provider] - Disposition Disposition (needs filled in before D/C Order can be placed): Home, Self Care Charges/Coding Visit Charges Inpatient E&M: 65055 Disch Hosp
--- NOTE | 2023-03-27 09:15 | PCM.PN.SRG ---
Subjective Subjective Patient is incisional pain is much better controlled today. Patient is tolerating a diet. LFTs have continued to come down. Objective Data Objective Data Vital Signs: Vital Signs Temp Pulse Resp BP Pulse Ox O2 Del Method O2 Flow Rate 99.1 F 84 18 131/64 H 95 Room Air 2 03/27/23 08:47 03/27/23 08:47 03/27/23 08:47 03/27/23 08:47 03/27/23 08:47 03/27/23 08:47 03/27/23 01:15 Oxygen Flow Rate (L/min) 2 Oxygen Delivery Method Room Air Weight: 280 lb 13.903 oz Body Mass Index (BMI) 39.2 Intake & Output: Intake and Output for Last 24 Hours 03/25/23 03/26/23 03/27/23 23:59 23:59 23:59 Intake Total 2367.0 / 2367.0 3997.5 / 3997.5 327.75 / 327.75 Output Total 100 / 100 Balance 2367.0 / 2367.0 3897.5 / 3897.5 327.75 / 327.75 Lab / Micro Data 03/26/23 06:01 03/26/23 06:01 Labs: Laboratory Results - last 24 hr 03/27/23 06:05: Total Bilirubin 0.60, Direct Bilirubin 0.26, AST 92 H, ALT 367 H, Alkaline Phosphatase 152 H, Total Protein 5.8 L, Albumin 3.0 L, Globulin 2.8 Physical Exam Const oriented x3 and no apparent distress Resp normal respiratory effort Cardio regular rate GI soft to palpation Inspection: Negative for abdominal distention Palpation: tender other (Near [id number] dressed with Steri-Strips and OpSite's) Assessment & Plan Assessment/Plan (1) S/P laparoscopic cholecystectomy: (2) S/P ERCP: PLAN: Plan Patient is doing well tolerating diet. Patient's pain is controlled. Patient's incisions dressed clean dry and intact. Okay to DC home. Patient will follow-up with me in about 2 weeks and also follow-up with GI for stent removal status post ERCP. Patient was agreeable to plan. Varsha Lenz M.D. Pager: [phone] [facility] [address] [place] [address], [facility], [address] [place], [place] [id number] Office: [phone]
[2023-03-27 12:17] VITALS: BP 140/81; PULSE 73; RESP 16; TEMP 36.7; O2SAT 96
== END 2023-03-27 12:36 | disposition home or self-care (01) | DRG 419 ==
LOC: ED 22:21 → MS3 23:40
PROVIDERS: Internal Medicine Gastroenterology; Surgery; Admitting Provider Internal Medicine; Emergency Provider Emergency Medicine; PCP Family Medicine; Referring Provider Internal Medicine
PROC: 0FC98ZZ Extirpation of Matter from Common Bile Duct, Via Natural or Artificial Opening Endoscopic (ICD-10-PCS; CPT 43260; principal; 2023-03-25 16:35)
PROC: 0FT44ZZ Resection of Gallbladder, Percutaneous Endoscopic Approach (ICD-10-PCS; CPT 47610; principal; 2023-03-26 08:00)
DX: K80.20 Calculus of gallbladder without cholecystitis without obstruction (principal); E03.9 Hypothyroidism, unspecified; E66.01 Morbid (severe) obesity due to excess calories; F32.A Depression, unspecified; K83.8 Other specified diseases of biliary tract; E80.6 Other disorders of bilirubin metabolism; Z68.39 Body mass index [BMI] 39.0-39.9, adult; Z87.891 Personal history of nicotine dependence; R74.8 Abnormal levels of other serum enzymes; R74.01 Elevation of levels of liver transaminase levels
CPT/HCPCS: 36415; 74177; 74181; 74330; 76000; 80053; 80061; 80074; 80076; 80320; 80329; 81025; 82248; 83036; 83540; 83550; 83690; 83735; 84100; 84443; 85025; 88304; 93005; 94668; 99284; J7030; J7120; Q9967; A4216; G0480; J0330; J0744; J2405

== ENCOUNTER 2023-06-22 09:53 | Day surgery (SDC) | payer OTHER, SELFPAY ==
--- NOTE | 2023-06-22 10:00 | RAD_ITS ---
EXAM: ERCP CLINICAL INDICATION: PAIN TECHNIQUE: Fluoroscopic images of ERCP performed in multiple projections. Fluoroscopic guidance was provided by a physician. No radiologist was present. Number of fluoroscopic images: 13 Fluoroscopy time: 1 minute and 49 seconds. COMPARISON: No relevant prior studies available. FINDINGS: The common bile duct was cannulated. It appears prominent in caliber. No constant filling defect is seen. Images were obtained for documentation. RAD/ERCP Biliary/Pancreas IMPRESSION: ERCP as described above. Electronically Signed: Jus Roberto MD at 13:18 EDT ,
[2023-06-22 10:17] VITALS: BP 105/83; PULSE 85; RESP 16; TEMP 36.1; O2SAT 97; BMI 39.2
[2023-06-22 10:17] LABS: Internal QC Validated? YES +Cl - CLEAR BKGD; Pregnancy, Urine Negative Negative
--- NOTE | 2023-06-22 10:21 | HP.PCM_ITS ---
History and Physical Date of Admission: 06/22/23 MRAY BARNETT, is a 52 F who presents to the office today for *[facility] hospitalization 2-03.27.23 for management of hyperbilirubinemia with transaminitis, gallbladder colic/gallstones and abdominal pain. CT abd/pel IV only 03.24.23 distended gallbladder with cholelithiasis; small umbilical hernia MRCP 03.25.23 diffuse hepatomegaly; multiple gallstones with some located in ducts; splenomegaly; small hiatal hernia ERCP 03.25.23 lower MBD and biliary tree dilated with obstructing stone; choledocholithiasis removed via sphincterotomy/balloon extraction; hepatic duct bifurcation and CBD dilated; temporary stent placed in CBD. No specimens Surgery 03.26.23 laparoscopic cholecystectomy; chronic cholecystitis/cholelithiasis OV 3.06.30 Pt well since hospital visit. No abdominal pain. Appetite is good. Bowels are still loose but are improving. No other concerns. Exam Const General: cooperative and comfortable Nutritional Appearance: average body habitus and well nourished [facility] Head: normal to inspection Ears: hearing grossly normal bilaterally Nose: external nose normal Face and sinus: normal facial exam Mouth: oral mucosae normal Throat: posterior oropharynx normal Eyes General: appearance normal, both eyes and all related structures Neck Neck: normal visual inspection Chest Chest palpation & inspection: normal inspection of the chest and normal palpation of entire chest wall Resp Effort & Inspection: normal respiratory effort Auscultation: Bilateral: Clear to Auscultation Cardio Palpation: normal PMI Rate: regular rate Rhythm: regular rhythm GI Inspection: normal to inspection Auscultation: normal bowel sounds Percussion: normal to percussion Palpation: no hepatosplenomegaly Skin General: no rashes or lesions noted Neuro General: patient alert Extrem General: normal to inspection Psych Affect: normal affect Quality Reporting Tobacco Screening ([facility] 138) Smoking Status: Former smoker Assessment and Plan Assessment and Plan (1) S/P laparoscopic cholecystectomy: Status: Chronic (2) S/P ERCP: Status: Chronic (3) High transaminase levels: Status: Resolved Plan: 52-year-old with acute cholecystitis and acute choledocholithiasis status post ERCP with sphincterotomy, balloon dilation, stone removal and temporary stent placement. She is also status post cholecystectomy. She is doing very well. She will need to follow-up in approximately 6 to 8 weeks for stent removal or exchange. Orders: Orders ERCP Biliary/Pancreas 06/22/23 Z98.890 - Other specified postprocedural states I have examined the patient and the H&P has been reviewed. There are no clinical changes since date of exam.
[2023-06-22] MEDS: Lactated Ringers 1,000 ML 15 ML IV (10:29)
--- NOTE | 2023-06-22 12:01 | OP.CCLET_ITS ---
06/22/2023 Héctor T[address] [place] [address] Re : ERCP procedure for Mamie Birch Dear Dr. Tena This procedure was performed on Thursday, June 22, 2023. My impressions and recommendations are as follows: Impressions : - The biliary system were dilated, with a stone causing an obstruction. - The patient has had a cholecystectomy. - Choledocholithiasis was found. Complete removal was accomplished by biliary sphincterotomy and balloon extraction. - A biliary sphincterotomy was performed. - The biliary tree was swept. - One stent was removed from the biliary tree. Recommendations : My findings are described in the full procedure note, which is enclosed. If I can be of further assistance, please feel free to contact me at . Sincerely, Fred Corrales, 06/22/2023 12:00:33 PM This report has been signed electronically.
--- NOTE | 2023-06-22 12:01 | OP.ERCP_ITS ---
Patient Name: Mamie Birch Procedure Date: 06/22/2023 11:06 AM Date of : 1970 Age: 52 Procedure: ERCP Indications: Bile duct stone(s), Biliary stent removal Providers: Fred Corrales DO Referring MD: Héctor Tena Medicines: Monitored Anesthesia Care Patient Profile: This is a 52 year old female. Refer to note in patient chart for documentation of history and physical. Patient has symptoms. Her most recent ERCP for biliary evaluation and ERCP for stent. She is status post laparoscopic cholecystectomy. Complications: No immediate complications. Procedure: Pre-Anesthesia Assessment: - Prior to the procedure, a History and Physical was performed, and patient medications and allergies were reviewed. The patient is competent. The risks and benefits of the procedure and the sedation options and risks were discussed with the patient. All questions were answered and informed consent was obtained. Patient identification and proposed procedure were verified by the physician in the pre-procedure area. Mental Status Examination: alert and oriented. Airway Examination: normal oropharyngeal airway and neck mobility. Respiratory Examination: clear to auscultation. CV Examination: normal. Prophylactic Antibiotics: The patient does not require prophylactic antibiotics. Prior Anticoagulants: The patient has taken no anticoagulant or antiplatelet agents. After reviewing the risks and benefits, the patient was deemed in satisfactory condition to undergo the procedure. The anesthesia plan was to use monitored anesthesia care (MAC). Immediately prior to administration of medications, the patient was re-assessed for adequacy to receive sedatives. The heart rate, respiratory rate, oxygen saturations, blood pressure, adequacy of pulmonary ventilation, and response to care were monitored throughout the procedure. The physical status of the patient was re-assessed after the procedure. After obtaining informed consent, the scope was passed under direct vision. Throughout the procedure, the patient's blood pressure, pulse, and oxygen saturations were monitored continuously. The Duodenoscope was introduced through the mouth, and advanced to the duodenum and used to inject contrast into the bile duct. The ERCP was accomplished without difficulty. The patient tolerated the procedure well. Scope In: 11:43:03 AM Scope Out: 11:52:42 AM Total Procedure Duration Time 0 hours 9 minutes 39 seconds Findings: The geological engineer film was normal. The esophagus was successfully intubated under direct vision. The scope was advanced to a normal major papilla in the descending duodenum without detailed examination of the pharynx, larynx and associated structures, and upper GI tract. The upper GI tract was grossly normal. The bile duct was deeply cannulated with the short-nosed traction sphincterotome. Contrast was injected. I personally interpreted the bile duct images. There was brisk flow of contrast through the ducts. Image quality was adequate. Contrast extended to the entire biliary tree. Opacification of the entire biliary tree except for the cystic duct and gallbladder and main bile duct was successful. The maximum diameter of the ducts was 10 mm. The lower third of the main bile duct contained one stone, which was 6 mm in diameter. The entire biliary tree except for the cystic duct and gallbladder were diffusely dilated, with a stone causing an obstruction. The largest diameter was 10 mm. A cholecystectomy had been performed. A straight Roadrunner wire was passed into the biliary tree. A 5 mm biliary sphincterotomy was made with a traction (standard) sphincterotome using ERBE electrocautery. There was no post-sphincterotomy bleeding. The biliary tree was swept with a 12 mm balloon starting at the bifurcation. Sludge was swept from the duct. All stones were removed. One stent was removed from the biliary tree using a snare. Impression: - The biliary system were dilated, with a stone causing an obstruction. - The patient has had a cholecystectomy. - Choledocholithiasis was found. Complete removal was accomplished by biliary sphincterotomy and balloon extraction. - A biliary sphincterotomy was performed. - The biliary tree was swept. - One stent was removed from the biliary tree. Procedure Code(s): --- Professional --- 19741, Endoscopic retrograde cholangiopancreatography (ERCP); with removal of foreign body(s) or stent(s) from biliary/pancreatic duct(s) 32617, Endoscopic retrograde cholangiopancreatography (ERCP); with removal of calculi/debris from biliary/pancreatic duct(s) 71624, Endoscopic retrograde cholangiopancreatography (ERCP); with sphincterotomy/papillotomy 61233, 26, Endoscopic catheterization of the biliary ductal system, radiological supervision and interpretation CPT copyright 2021 [employer]. All rights reserved. The codes documented in this report are preliminary and upon learning consultant review may be revised to meet current compliance requirements. Fred Corrales DO 06/22/2023 12:00:33 PM This report has been signed electronically. Number of Addenda: 0 Note Initiated On: 06/22/2023 11:06 AM
[2023-06-22 12:10] VITALS: BP 105/83; BP 128/80; PULSE 69; RESP 14; TEMP 36.3; O2SAT 97
[2023-06-22 12:15] VITALS: BP 105/83; BP 110/57; PULSE 71; RESP 14; O2SAT 96
[2023-06-22 12:23] VITALS: BP 105/83; BP 122/81; PULSE 72; RESP 14; TEMP 36.1; O2SAT 97
[2023-06-22 12:45] VITALS: BP 105/83
== END 2023-06-22 12:53 | disposition home or self-care (01) ==
LOC: EN 09:54 → AC 10:01
PROVIDERS: Anesthesiology; PCP Family Medicine; Referring Provider Family Medicine; Visit Provider Internal Medicine Gastroenterology
PROC: (CPT 43260; principal; 2023-06-22 10:40)
DX: K80.50 Calculus of bile duct without cholangitis or cholecystitis without obstruction (principal); R74.01 Elevation of levels of liver transaminase levels; Z90.49 Acquired absence of other specified parts of digestive tract
CPT/HCPCS: 43264; 43275; 43262; 74330; 76000; 81025; J7120; J2405

== ENCOUNTER 2023-11-09 21:57 | Emergency (ER) | payer OTHER, SELFPAY ==
[2023-11-09 21:58] VITALS: BP 132/81; PULSE 99; RESP 18; TEMP 36.4; O2SAT 98; BMI 37.2
--- NOTE | 2023-11-09 22:18 | EX.ED.DYSGE1 ---
HPI History of Present Illness Chief Complaint: Bite Informant: patient and spouse/S.O. Narrative Narrative: Patient is a 52-year-old female with past medical history of depression and hypothyroidism. 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 She states that she did not think much of this but that today the finger now became red swollen and painful and she has concern for infection and therefore comes in for evaluation. She is unsure of her tetanus status [facility] Medical History (Updated 11/09/23 @ 22:[address] Alfredo Vale, ) Hypothyroidism Depression Home Medications ?Medication ?Instructions ?Recorded ?Last Taken ?Type Cbd Oil 3,020 mg sublingual BID PAIN 08/21/18 06/17/23 History bupropion HCl 300 mg 24 hr tablet, 300 mg PO DAILY DEPRESSION 08/21/18 03/23/23 History extended release cholecalciferol (vitamin D3) 25 1,000 unit PO DAILY SUPPLEMENT 08/21/18 03/23/23 History mcg (1,000 unit) tablet meloxicam 15 mg tablet 15 mg PO DAILY #30 tabs 05/07/22 03/23/23 Rx levothyroxine 75 mcg tablet 75 mcg PO DAILY 03/24/23 03/23/23 History vitamin C 500 mg-quercetin 250 1 cap PO DAILY 06/17/23 Unknown History mg-bioflavonoids, citrus 33 mg capsule (Quercetin Complex) doxycycline hyclate 100 mg capsule 100 mg PO BID 10 days #20 caps 11/09/23 Unknown Rx Allergy/AdvReac Type Severity Reaction Status Date / Time Penicillins Allergy Hives Verified 06/22/23 10:16 Surgical History (Updated 06/17/23 @ 13:45 by Omid Harrington) Hx of tonsillectomy H/O dilation and curettage H/O thyroidectomy H/O foot surgery History of total hip replacement S/P ERCP S/P laparoscopic cholecystectomy Social History Smoking Status: Former smoker ROS ROS ED Constitutional Constitutional ED: Denies chills or fever(s) ENT ENT ED: Denies sore throat Cardiovascular Cardiovascular: Denies chest pain Respiratory/Chest Respiratory/Chest: Denies cough or dyspnea Gastrointestinal Gastrointestinal: Denies abdominal pain, diarrhea, nausea or vomiting Genitourinary Genitourinary ED: Denies dysuria Musculoskeletal Musculoskeletal: Reports other Details: Positive right middle finger pain Integumentary Reports other Details: Positive right finger redness and swelling Neurologic Neurologic: Denies headache(s) Hematologic/Lymphatic Hematologic/Lymphatic: Denies easy bleeding or easy bruising EXAM Physical Exam Const Vital Signs: 11/09/23 21:58 Temperature 97.6 F L Temperature Source Temporal Pulse Rate 99 Respiratory Rate 18 Blood Pressure 132/81 H Blood Pressure Mean 98 Pulse Ox 98 Positive well nourished and well developed General Appearance ED: well developed; Negative for pallor HEENT HEENT Narrative: Normocephalic atraumatic Eyes PERRL and EOMs intact bilaterally Neck supple Resp normal respiratory effort and clear to auscultation bilaterally Cardio regular rate and regular rhythm Extremity Extremity Narrative: Right upper extremity is neurovascularly intact. There is a singular small puncture wound to the volar aspect of the right distal phalanx of the third finger consistent with cat bite. There is surrounding redness and warmth consistent with cellulitis/infection. No abscess formation noted. No lymphangitic streaking. No Knievel sign noted. Remainder of the exam is normal Neuro oriented x3, CN's II-XII intact bilaterally and no sensory deficits noted Sensorium / Orientation: alert Motor Exam: strength 5/5 throughout Psych mental status grossly normal Skin No no wounds Skin Narrative: Soft tissue changes to the right middle finger as documented above consistent with infected cat bite General Skin Exam: Negative for jaundice or pallor MDM MDM MDM Narrative Medical decision making narrative: Patient arrived to the ER with stable vitals. She is approximately 24 hours out from a cat bite. The cat is known and can be watched so there is no need for rabies vaccination or immunoglobulin. As the patient did not know her tetanus status this was updated. Physical exam shows swelling and erythema consistent with developing cellulitis. There is no abscess formation noted. The finger is still soft and compressible going against a compartment syndrome or developing felon. There is no lymphangitic streaking to suggest systemic infection and patient does not have a fever. Moreover she is not immunosuppressed. Therefore at this time I do not feel there is need for imaging or laboratory studies. Patient will be started on doxycycline as she has a penicillin allergy and her tetanus status will be updated. She agrees to return if there is no improvement of symptoms despite antibiotic therapy for potential IV antibiotics and admission if required History & Record Review Discussion w/independent historian: Patient and Significant other Discharge Plan Triage Chief Complaint: Bite ED Provider: Alfredo Vale Dx/Rx/DC Orders Clinical Impression: Infected cat bite of middle finger, Hypothyroidism, Depression Instructions: ED Cat Bite Prescriptions: New doxycycline hyclate 100 mg capsule 100 mg PO BID 10 Days Qty: 20 0RF No Action bupropion HCl 300 MG tablet extended release 24 hr 300 mg PO DAILY cholecalciferol (vitamin D3) 1,000 UNIT tablet 1,000 unit PO DAILY Cbd Oil 3,020 mg sublingual BID Rx Instructions: WILL STOP 5 DAYS PRIOR TO SURGERY levothyroxine 75 mcg tablet 75 mcg PO DAILY Patient Comments: TAKE 1 TABLET BY MOUTH ONCE DAILY ON AN EMPTY STOMACH FOR THYROID Quercetin Complex 500-250-33 mg capsule 1 cap PO DAILY meloxicam 15 mg tablet 15 mg PO DAILY Qty: 30 0RF Rx Instructions: Do not take in conjunction with other NSAID. Tylenol is okay. Primary Care Provider: Héctor Tena Referrals: Héctor Tena MD [Primary Care Provider] - Activity Restrictions/Additional Instructions: Take the antibiotic as directed to help resolve the infection from the cat bite. If the infection continues to spread despite taking the antibiotic you develop a fever of 100.4 or higher or noticed lymphangitic streaking please return to the hospital for further evaluation with potential IV antibiotics and admission. Print Language: Thai Disposition Disposition: Home, Self Care
[2023-11-09] MEDS: Diphth,Pertuss(Acell),Tet Vac 0.5 ML Vial IM (22:30)
[2023-11-09] MEDS: Doxycycline 100 MG CAPSULE PO (22:31)
[2023-11-09 22:53] VITALS: BP 128/77; PULSE 70; RESP 18; TEMP 36.6; O2SAT 96
== END 2023-11-09 22:56 | disposition home or self-care (01) ==
PROVIDERS: Emergency Provider Emergency Medicine; PCP Family Medicine; Visit Provider Emergency Medicine
DX: S61.232A Puncture wound without foreign body of right middle finger without damage to nail, initial encounter (principal); F32.A Depression, unspecified; Z87.891 Personal history of nicotine dependence; E03.9 Hypothyroidism, unspecified; W55.01XA Bitten by cat, initial encounter; Z23 Encounter for immunization
CPT/HCPCS: 90471; 90715; 99283

== ENCOUNTER → 2024-01-04 | Outpatient (CLI) | payer OTHER, SELFPAY ==
[2024-01-04 14:50] LABS: ALB/GLOB Ratio 1.2 RATIO (0.9-2.4); AST(SGOT) 8 U/L (15-37); Alanine Aminotransfer ALT/SGPT 27 U/L (13-56); Albumin, Serum 4.2 g/dL (3.2-5.0); Alkaline Phosphatase 97 U/L (45-117); Anion Gap 6 (5-15); BUN 14 mg/dL (7-18); BUN/Creat Ratio 15.1 RATIO (10-20); Calcium,Total 9.2 mg/dL (8.5-10.1); Chloride 104 mmol/L (98-107); Cholesterol 230 mg/dL (200); Creatinine, Serum 0.93 mg/dL (0.55-1.02); EST Glomerular Filtration Rate 67 mL/min (>60); Est Glom Filt Rate - Afr Amer 81 mL/min (>60); Globulin 3.5 g/dL (2.2-4.2); Glucose 94 mg/dL (74-106); High Density Lipoprotein 67 mg/dL; Protein, Total 7.7 g/dL (6.4-8.2); Sodium Level 139 mmol/L (136-145); T4 Free Direct 0.97 ng/dL (0.76-1.46); Thyroid Stim Hormone (TSH) 0.706 uIU/mL (0.358-3.740); Triglycerides 132 mg/dL; Very Low Density Lipoprotein 26 mg/dL (5-40)
== END | disposition home or self-care (01) ==
LOC: LAB 13:32
PROVIDERS: PCP Family Medicine; Referring Provider Nurse Practitioner Family; Visit Provider Nurse Practitioner Family
DX: Z13.1 Encounter for screening for diabetes mellitus (principal); Z13.220 Encounter for screening for lipoid disorders; R79.89 Other specified abnormal findings of blood chemistry; E03.9 Hypothyroidism, unspecified
CPT/HCPCS: 36415; 80053; 80061; 83036; 84439; 84443